=== PATIENT | male | born 1955 | race Caucasian/White ===

== ENCOUNTER 2023-04-29 22:54 | Inpatient (IN) | payer MEDICARE, MEDICAID, SELFPAY ==
[2023-04-29] VITALS (14 sets, daily range): BP systolic 82–131; BP diastolic 44–64; BMI 33.0; BMI 33.2
--- NOTE | 2023-04-29 17:15 | ED.GENMED ---
History of Present Illness
General
Chief Complaint: Abdominal Symptoms
Source: patient
Exam Limitations: none
Time Seen by Provider: 04/29/23 16:51
Nursing documentation reviewed up to this point in time: agreed with
Travel History
Have you had any contact with someone who has COVID-19?: No
Do you have any symptoms of coronavirus? Fever > 100 degrees, chills, cough, shortness of breath, sore throat, loss of taste or smell, muscle aches, or headache?: No
History of Present Illness
History of Present Illness:
Patient is a 67-year-old male with past medical history of anxiety bipolar disorder aspiration pneumonia dementia encephalopathy hypertension reflux a flutter brought by staff from halfway. Staff reports patient started vomiting diarrhea around
3:15pm He has vomited 4 times since.
Staff reports the patient was recently started on Eliquis for a flutter as well as metoprolol on April 26.
Review of Systems
Review of Systems
Allergies reviewed?: Yes
Other source history: other (staff from [facility] )
All Other Systems: ROS reviewed and negative except as documented in HPI and ROS
Constitutional: Reports no symptoms; Denies fever, fatigue or chills
Respiratory: Reports no symptoms
Cardiac: Reports no symptoms
ABD/GI: Reports nausea, vomiting and diarrhea
: Reports no symptoms
Musculoskeletal: Reports no symptoms
Skin: Reports no symptoms
Psychiatric: Reports no symptoms
Phy Exam
General Physical Exam
General Presentation: no apparent distress
General age: appears older than age
General Skin: warm and dry
General Habitus: elderly
General Mental: alert
General Hydration: dry mucous membranes
Cardiovascular Exam
Cardiovascular Exam: regular rate/rhythm, no murmur and normal peripheral pulses
Course
Orders/Labs/Results
Orders:
Orders
04/29/23 17:15
0.9% Sodium Chloride 1000 ml [Nss] 1,000 ml IV BOLUS
Ondansetron Injectable [Zofran] 4 mg IV NOW STA
04/29/23 17:16
Complete Blood Count/With Diff Urgent
04/29/23 17:20
Electrocardiogram (*1) Stat
Reason for Study: Other
Other Reason for Exam: chest pain
Cardiac Monitoring- Treatment ONCE
EKG- Treatment ONCE
04/29/23 18:06
CT Abd/Pel (IV only)-DH only Urgent
Comment:
Reason For Exam: v/d pain ; elevated wbc of 20
04/29/23 18:55
COVID-19 Antigen Urgent
Comprehensive Metabolic Panel Urgent
Lipase Urgent
Urinalysis Reflex To Culture Urgent
Urine Microscopic Reflex Cult Urgent
Influenza A+B Rapid Molecular Urgent
LINN Source: [facility]
Specimen Description:
Urine Culture Urgent
LINN Source: U
Specimen Description:
04/29/23 19:47
Lactic Acid Urgent
Blood Culture Q30M
LINN Source: Blood/Venous
Specimen Description:
04/29/23 20:13
Lorazepam [Ativan] 0.5 mg IV NOW STA
04/29/23 20:14
CefTRIAXone [Rocephin] 1,000 mg IV NOW STA
04/29/23 20:24
Blood Culture Q30M
LINN Source: Blood/Venous
Specimen Description:
Abnormal Lab Results
04/29/23 04/29/23
17:16 18:55
WBC 20.6 H 10^3/uL
(4.8-10.8)
MCH 31.8 H pg
(27.0-31.0)
MPV 10.5 H fL
(7.4-10.4)
Abs Immat Gran (auto) 0.1 H 10^3/uL
(0-0.05)
Absolute Neuts (auto) 18.7 H 10^3/uL
(1.4-6.5)
Absolute Lymphs (auto) 0.6 L 10^3/uL
(1.2-3.4)
Absolute Monos (auto) 1.0 H 10^3/uL
(0.1-0.6)
Neutrophils % 91.1 H %
(42.2-75.2)
Lymphocytes % 3.0 L %
(20.5-51.1)
Sodium 131 L mmol/L
(135-145)
Potassium 3.3 L mmol/L
(3.5-5.1)
Chloride 88 L mmol/L
(98-107)
Carbon Dioxide 36 H mmol/L
(22-30)
BUN 21 H mg/dl
(9-20)
Glucose 103 H mg/dl
(70-99)
Alkaline Phosphatase 144 H U/L
(38-126)
Total Protein 9.3 H g/dl
(6.3-8.2)
Ur Occult Blood Reflex 1+ A
(Negative)
Urine Nitrite (Reflex) Positive A
(Negative)
Leukocyte Esterase Rfl 2+ A
(Negative)
Urine RBC 3-6 A /HPF
(0-2)
Urine WBC (Reflex) 90-100 A /HPF
(0-5)
Urine Bacteria (Reflex) Many A
(Negative)
04/29/23 17:16
04/29/23 18:55
Vital Signs
Initial and Last Documented VS:
Initial Vital Signs
Temp Pulse Resp BP Pulse Ox
98.4 F 67 18 108/61 95
04/29/23 16:17 04/29/23 16:17 04/29/23 16:17 04/29/23 16:17 04/29/23 16:17
Last Documented Vital Signs
Temp Pulse Resp BP Pulse Ox
98.4 F 78 13 131/60 94
04/29/23 16:17 04/29/23 19:45 04/29/23 19:45 04/29/23 19:30 04/29/23 19:45
Shearing Machine Tender consulted with Physician
Shearing Machine Tender consulted with physician?: Yes
Name of Physician Consulted: Fabian
MDM/Problems Addressed
Differential Diagnosis Includes:
Not limited to viral syndrome, COVID, influenza, dehydration, electrolyte abnormality, UTI
MDM/Problems Addressed:
Patient is a 67-year-old male with past medical history of developmental delay from halfway sent for nausea vomiting diarrhea. Patient was found to have a UTI. White count elevated at 20.6 however afebrile. Sodium mildly low at 131 potassium
3.3 CAT scan showed severely distention of bladder. Bladder scan done after patient came back and CAT scan shows 600 mL of urine. Patient has required a Chen in the past as per sister who was at bedside and staff from halfway. Will place
Chen. IV Rocephin ordered. bc x2 ordered. nml lactic
*Radiology
Radiology exam reviewed: radiology read reviewed
*Pulse Oximetry
Patient hypoxic: no
*EKG
Interpreted by ED Provider?: Yes
Heart Rate: 73
Rate: normal
Rhythm: sinus
Ischemia: no ischemia
*Critical Care Note
Total Time (30-74mins, 75-104mins- exclusive of procedures): Not Applicable
ED Attending Note
-
Portions of this chart may have been created with voice recognition software.� Occasional wrong word or��sound alike� substitutions may have occurred due to the inherent limitations of voice recognition software.
Discharge Plan
Departure
Patient Disposition: Admit
Date of Disposition: 04/29/23
Time of Disposition: 21:54
Admit to: Med/Surg
Admit to doctor: hospitalist
Presentation/result/management discussed w/ accepting MD/DO: Hospitalist
Patient with high blood pressure during this ER visit?: Yes
Condition: Fair
Covid-19: Not Applicable
Discharge Problem:
Acute UTI, Acute hyponatremia, Acute hypokalemia, Nausea, vomiting and diarrhea
Prescriptions:
No Action
loperamide 2 MG capsule
2 mg PO Q4H PRN (Reason: loose stool)
famotidine [Acid Controller] 20 MG tablet
20 mg PO BID
magnesium hydroxide 30 ML suspension
30 ml PO Q12H PRN (Reason: constipation)
tamsulosin 0.4 MG capsule
0.4 mg PO HS
mirtazapine 30 MG tablet
30 mg PO HS
lisinopril 5 MG tablet
5 mg PO DAILY
buspirone 15 MG tablet
15 mg PO BID
acetaminophen [Tylenol] 325 MG capsule
650 mg PO Q4H PRN (Reason: mild pain/BARCLAY/temp>100.4)
sodium chloride 5 % drops
1 drp RIGHT EYE TID
docusate sodium 50 mg/5 mL liquid
100 mg PO BID
sennosides [senna] 8.6 mg Tablet
17.2 mg PO HS
Triple Antibiotic 3.5mg-400 unit- 5,000 unit/gram Ointment
1 applic TOPICAL QID PRN (Reason: cuts/scrapes/abrasions)
ketoconazole 2 % shampoo
1 applic TOPICAL MOTH
dextromethorphan-guaifenesin [Chest Congestion Relief DM] 10-100 mg/5 mL Syrup
10 ml PO Q6H PRN (Reason: cough/congestion)
zinc oxide 20 % Ointment
1 applic TOPICAL PRN PRN (Reason: prevent skin breakdown)
Rx Instructions:
apply to chela area
sodium chloride [Stacey 128] 5 % ointment
1 applic RIGHT EYE BID
levothyroxine 50 mcg tablet
50 mcg PO DAILY
erythromycin 5 mg/gram (0.5 %) ointment
0.5 inch BOTH EYES HS
Debrox 6.5 % Drops
4 drp EACH EAR MONTHLY
Rx Instructions:
Instill 4 drps in both ears at bedtime on the 1st day of each month
metoprolol succinate 25 mg tablet extended release 24 hr
25 mg PO DAILY
ibuprofen 600 mg Tablet
600 mg PO Q6H PRN (Reason: dental pain)
polyethylene glycol 3350 17 gram/dose powder
17 g PO DAILY
olopatadine 0.2 % Drops
1 drp BOTH EYES DAILY PRN (Reason: allergic symptoms/itching)
Desitin Daily Defense 13 % Cream
1 applic TOPICAL PRN PRN (Reason: rash)
Rx Instructions:
apply to groin/buttocks
Nuedexta 20-10 mg capsule
1 cap PO DAILY
apixaban 5 mg Tablet
5 mg PO BID
Referrals:
Bryan Cardona, DO [Family Provider] -
Interventions
Interventions:
*Risk Screen - Suicide Last Done: 04/29/23 17:41
*General Assessment Last Done: 04/29/23 16:17
*Neglect/Abuse Screening Last Done: 04/29/23 17:41
ED- Fall Risk Assessment Last Done: 04/29/23 17:41
*ED COVID-19 Vaccine History Last Done: 04/29/23 16:17
SB-Dfmvtg-Sfuotmtiug Assessment Last Done: 04/29/23 17:41
[2023-04-29] MEDS: NSS 1000 IV (17:18)
[2023-04-29] MEDS: ZOFRAN 4 MG IV (17:18)
[2023-04-29 17:40] LABS: % Basophils 0.3 % (0-2); % Eosinophils 0.1 % (0-6); % Immature Granulocytes 0.5 % (0-0.5); % Neutrophils 91.1 % (42.2-75.2); Absolute Basophils 0.1 10^3/uL (0-0.2); Absolute Immature Granulocytes 0.1 10^3/uL (0-0.05); Absolute Lymphocytes 0.6 10^3/uL (1.2-3.4); Absolute Neutrophils 18.7 10^3/uL (1.4-6.5); Hematocrit 43.5 % (39.0-52.0); Mean Corp Hgb Conc. 34.5 g/dL (33.0-37.0); Mean Corpuscular Hgb 31.8 pg (27.0-31.0); Mean Corpuscular Volume 92.2 fL (80.0-94.0); Mean Platelet Volume 10.5 fL (7.4-10.4); Nucleated Red Blood Cells % 0 % (-); Platelet Count 237 10^3/uL (130-400); Red Blood Cell Count 4.72 10^6/uL (4.70-6.10); Red Cell Dist. Width 13.5 % (11.5-14.5); White Blood Cell Count 20.6 10^3/uL (4.8-10.8)
[2023-04-29 19:10] LABS: Urine Albumin Trace (Neg - Trace); Urine Bilirubin Negative (Negative); Urine Character Slightly Cloudy (Clear); Urine Color Yellow; Urine Glucose Negative (Negative); Urine Ketone Negative (Negative); Urine Leukocyte 2+ (Negative); Urine Nitrite Positive (Negative); Urine Occult Blood 1+ (Negative); Urine Specific Gravity 1.005 (<1.030); Urine Urobilinogen Negative (Neg - 1+)
[2023-04-29 19:22] LABS: Urine Bacteria Many (Negative); Urine White Cell 90-100 /HPF (0-5)
[2023-04-29 19:23] LABS: COVID-19 Antigen Negative (Negative)
[2023-04-29 19:41] LABS: ALT (SGPT) 21 U/L (0-50); AST (SGOT) 56 U/L (17-59); Albumin 4.1 g/dl (3.5-5.0); Alkaline Phosphatase 144 U/L (38-126); Blood Urea Nitrogen 21 mg/dl (9-20); Calcium 9.2 mg/dl (8.4-10.2); Carbon Dioxide 36 mmol/L (22-30); Chloride 88 mmol/L (98-107); Estimated Creatinine Clearance 75 ml/min; Glucose 103 mg/dl (70-99); Lipase 295 U/L (23-300); Potassium 3.3 mmol/L (3.5-5.1); Sodium 131 mmol/L (135-145); Total Protein 9.3 g/dl (6.3-8.2); eGFR > 60.00
[2023-04-29 20:10] LABS: Lactic Acid 1.2 mmol/L (0.7-2.0)
[2023-04-29] MEDS: ATIVAN 0.5 MG IV (20:23)
[2023-04-29] MEDS: ROCEPHIN 1000 MG IV (20:23)
--- NOTE | 2023-04-29 21:54 | HPS.HSE ---
Addendum entered and electronically signed by Leanne James MD 04/29/23 22:51:
I saw and examined the patient.
The BOOTS AND SHOES SUPERVISOR or PA's note was reviewed and I agree with the note.
Comment:
Patient is [age] years old with past medical history of BPH, dementia, aspiration pneumonia who came to the ER with nausea, vomiting, diarrhea complaint with his sister at bedside and caregiver from [facility], patient found to have elevated white
count and CT scan done shows distended urinary bladder.
Urinalysis shows evidence of UTI.
Physical exam:
GENERAL : Patient is sleepy.
HEENT: Nonicteric sclerae, PERRLA, EOMI. Oropharynx clear. Moist mucous membranes. Conjunctivae appear well perfused.
CHEST: Chest wall is nontender.
HEART: Regular rate and rhythm without murmurs.
LUNGS: Clear to auscultation bilaterally.
ABDOMEN: Soft, positive bowel sounds, nontender, no organomegaly.
RECTAL: Deferred.
SKIN: No rash, no excessive bruising, petechiae, or purpura.
NEUROLOGIC: sleepy.
Assessment/plan.
UTI.
Started Rocephin.
Pending urine culture
Nausea/vomiting/diarrhea.
Possible gastroenteritis
IV fluid hydration.
Replace potassium
Paroxysmal A-fib.
Continue metoprolol/Eliquis.
Hypertension.
Currently hypotensive.
IV fluid.
Lisinopril/metoprolol with parameter
Original Note:
Family Physician
-
Family Physician: Bryan Cardona
Chief Complaint
-
vomitting and diarrhea
History of Present Illness
67-year-old male with past medical history of anxiety ,bipolar, aspiration pneumonia, dementia, encephalopathy, hypertension, reflux, a flutter brought by staff from [facility] with nausea, vomiting diarrhea this afternoon. �he was vomiting water
and food. denied fever, chills, chest pain ,sob. denied abdominal pain, denied n,v,d. denied dysuria or hematuria.
positive UA, urinary retention,elevated wbc. initiated on iv ceftriaxone and Chen placed in for urinary retention.
recently diagnosed wtih a flutter/a fib on metoprolol and eliquis
Medical History
Past Medical History
Past Medical History: Reports Other
Additional Past Medical History:
atrial flutter
bipolar
anxiety
htn
Past Surgical History: Reports Other
Additional Past Surgical History:
TURP
Social History
Tobacco: Non-smoker
Alcohol: None
Drug: None
Personal: Single
Living: Other (half-way)
Family History
Family History: Not pertinent
Allergies / Home Medications
Allergies reflects when Allergies were last updated in [facility].
Home Medications with original date entered in [facility]
Allergy/Medication List:
Allergies
Allergy/AdvReac Type Severity Reaction Status Date / Time
benztropine Allergy Unknown Verified 04/29/23 16:20
risperidone [From Risperdal] Allergy Unknown Verified 04/29/23 16:21
Home Medications
acetaminophen 325 mg capsule (Tylenol) 650 mg PO Q4H PRN mild pain/BARCLAY/temp>100.4 07/17/21
buspirone 15 mg tablet 15 mg PO BID 07/17/21
famotidine 20 mg tablet (Acid Controller) 20 mg PO BID 07/17/21
lisinopril 5 mg tablet 5 mg PO DAILY 07/17/21
loperamide 2 mg capsule 2 mg PO Q4H PRN loose stool 07/17/21
magnesium hydroxide 400 mg/5 mL oral suspension 30 ml PO Q12H PRN constipation 07/17/21
mirtazapine 30 mg tablet 30 mg PO HS 07/17/21
tamsulosin 0.4 mg capsule 0.4 mg PO HS 07/17/21
apixaban 5 mg tablet 5 mg PO BID 04/29/23
carbamide peroxide 6.5 % ear drops (Debrox) 4 drp EACH EAR MONTHLY 04/29/23
dextromethorphan 20 mg-quinidine 10 mg capsule (Nuedexta) 1 cap PO DAILY 04/29/23
dextromethorphan-guaifenesin 10 mg-100 mg/5 mL oral syrup (Chest Congestion Relief DM) 10 ml PO Q6H PRN cough/congestion 04/29/23
docusate sodium 50 mg/5 mL oral liquid 100 mg PO BID 04/29/23
erythromycin 5 mg/gram (0.5 %) eye ointment 0.5 inch BOTH EYES HS 04/29/23
ibuprofen 600 mg tablet 600 mg PO Q6H PRN dental pain 04/29/23
ketoconazole 2 % shampoo 1 applic topical MOTH 04/29/23
levothyroxine 50 mcg tablet 50 mcg PO DAILY 04/29/23
metoprolol succinate 25 mg tablet,extended release 24 hr 25 mg PO DAILY 04/29/23
neomycin-bacitracn Zn-polymyx 3.5 mg-400 unit-5,000 unit/gram top oint (Triple Antibiotic) 1 applic topical QID PRN cuts/scrapes/abrasions 04/29/23
olopatadine 0.2 % eye drops 1 drp BOTH EYES DAILY PRN allergic symptoms/itching 04/29/23
polyethylene glycol 3350 17 gram/dose oral powder 17 g PO DAILY 04/29/23
sennosides 8.6 mg tablet (senna) 17.2 mg PO HS 04/29/23
sodium chloride 5 % eye drops 1 drp RIGHT EYE TID 04/29/23
sodium chloride 5 % eye ointment (Stacey 128) 1 applic RIGHT EYE BID 04/29/23
zinc oxide 13 % topical cream (Desitin Daily Defense) 1 applic topical PRN PRN rash 04/29/23
zinc oxide 20 % topical ointment 1 applic topical PRN PRN prevent skin breakdown 04/29/23
Review of Systems
-
Constitutional: Reports No Symptoms
EENT: Reports No Symptoms
Respiratory: Reports No Symptoms
Cardiac: Reports No Symptoms
Abdomen/GI: Reports Nausea, Vomiting and Diarrhea
: Reports No Symptoms
Musculoskeletal: Reports No Symptoms
Skin: Reports No Symptoms
Neurological: Reports No Symptoms
Endocrine: Reports No Symptoms
Hematologic/Lymphatic: Reports No Symptoms
Psych: Reports No Symptoms
Physical Exam
Vital Signs
Vital Signs
Temp Pulse Resp BP Pulse Ox
98.4 F 78 13 131/60 94
04/29/23 16:17 04/29/23 19:45 04/29/23 19:45 04/29/23 19:30 04/29/23 19:45
Physical Exam
General: Well Developed, Well Nourished and No Apparent Distress
HEENT: NormoCephalic, Moist mucous membranes and Atraumatic
Respiratory: Clear
Cardiac: S1/S2 and Regular Rhythm; No Murmur or Rub
GI: Soft, Non Tender, Non Distended and Normal Bowel Sounds; No Organomegaly
Rectal: Deferred by Provider
Musculoskeletal: No Clubbing, No Cyanosis and No Edema
Skin: No Rash
Neuro: AO x 3 and Nonfocal/grossly intact
Psych: Calm
Laboratory Results
-
04/29/23 17:16
04/29/23 18:55
Laboratory Results
Lactic Acid 1.2 mmol/L (0.7-2.0) 04/29/23 19:47
Total Bilirubin 1.0 mg/dl (0.2-1.3) 04/29/23 18:55
AST 56 U/L (17-59) 04/29/23 18:55
ALT 21 U/L (0-50) 04/29/23 18:55
Alkaline Phosphatase 144 U/L (38-126) H 04/29/23 18:55
Lipase 295 U/L (23-300) 04/29/23 18:55
Data Reviewed
-
CT Scan: Report Reviewed by me
Lab Data: Labs Reviewed by me
Impression/Plan
-
#n/v/d likely gastroenteritis
-clear liquid diet, advance as directed
-obtain stool for culture, c diff, norovirus
#urinary tract infection/urinary retention
-Chen cath in place for urinary retention
-iv ceftriaxone
-culture pending
-wbc 20.6
-Ct abdomen pelvis with Severe distention of the bladder.Too small to characterize hypodense hepatic lesion likely a small cyst or hemangioma.Large amount of patient motion artifact due to patient movement.
-urology consulted
#hypovolemic hyponatremia/hypokalemia likely from n.v.d
-na 131, k 3.3
-oral kcl
-normal saline continued x1 bat
-monitor BMP in am
#paroxysmal atrial flutter/fib
-metoprolol continued
-eliquis continued
-EKG with NSR
#Bipolar/anxiety
-buspirone
#GERD
-PPI continued
#hypothyroidism
-levothyroxine continued
#essential htn
-BP stable, hypotensive in ER
-BP improved
-lisinopril continued with hold parameters
#hxt of bladder neck contraction s/p TURP
-on Flomax
#DVT prophylaxis
-eliquis
#CODE status
-CPR, but no intubation.
[2023-04-29] MEDS: KCL ELIXIR 40 MEQ PO (22:28)
--- NOTE | 2023-04-29 23:42 | PTCARENOTE ---
pt arrived onto [facility]w [facility] stretcher on r.a,on tele, and michelle Chen. Pt was pulled over from stretcher to bed, customer care assistant and sister is at bed side for right now, call moon is in reach. RN will continue to monitor.
[2023-04-30] MEDS: NSS 1000 IV (00:24)
[2023-04-30 03:00] VITALS: BP 106/47
[2023-04-30] MEDS: SYNTHROID 50 MCG PO (05:12)
[2023-04-30 08:03] VITALS: BP 123/62
--- NOTE | 2023-04-30 09:07 | W.PN.URO.CBU ---
Today's Communication / Plan
-
Await urine C&S
Keep Chen
Assessment / Plan
-
History of bladder outlet obstruction s/p TURP/bladder neck resection and urethral dilation most recently in June
Distended bladder on CT scan: s/p placement of Chen 04/29/23
No upper tract compromise radiographically of by serum studies
---
Await urine culture results
Would favor voiding trial prior to discharge home with the understanding the patient might not empty his bladder entirely
Diagnosis
-
Date of Service: April 30, 2023
-
Patient Diagnosis:
Urine retention
History of BPH
s/p TURP early 2019 at [facility]
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
---
Cystoscopy 08/21 confirmed an open bladder neck
Patient was most recently seen in the outpatient setting 04/07/23 and his caregiver denied the patient having any significant voiding dysfunction: confirmed this morning by patient's sister at bedside
---
Patient was admitted 04/29/23 for evaluation of nausea/vomiting/diarrhea
CT scan identified a distended urinary bladder with normal upper tracts
A Chen catheter was placed by the ER staff w/o event
Subjective
-
Essentially non-verbal
Objective
-
Vital Signs
Temp Pulse Resp BP Pulse Ox
98.2 F 65 16 123/62 97
04/30/23 08:03 04/30/23 08:03 04/30/23 08:03 04/30/23 08:03 04/30/23 08:03
Intake and Output
04/29/23 04/30/23 05/01/23
06:59 06:59 06:59
Intake Total 0 / 0
Output Total 2099
Balance -2099
Intake:
Oral fluids 0 / 0
Output:
Urine, Chen 2099
Other:
Number of unmeasured liquid
stools
Rectum 2
CT scan 04/29/23 personally reviewed and noted above
GFR > 60.0
Urinalysis c/w UTI
WBC 20.6 04/29/23
Review of Systems
-
Unable to obtain full review of systems at this time due to: Dementia
Physical Exam
-
General - no acute distress\\
Abdomen - soft, non-tender
Genitalia - normal with Chen draining pao urine
Skin - warm & dry with no rash
[2023-04-30 09:11] LABS: Hematocrit 36.9 % (39.0-52.0); Hemoglobin 12.5 g/dL (13.0-18.0); Mean Corp Hgb Conc. 33.9 g/dL (33.0-37.0); Mean Corpuscular Hgb 31.5 pg (27.0-31.0); Mean Corpuscular Volume 92.9 fL (80.0-94.0); Mean Platelet Volume 11.1 fL (7.4-10.4); Platelet Count 230 10^3/uL (130-400); Red Blood Cell Count 3.97 10^6/uL (4.70-6.10); Red Cell Dist. Width 13.9 % (11.5-14.5); White Blood Cell Count 11.6 10^3/uL (4.8-10.8)
[2023-04-30 09:38] LABS: Blood Urea Nitrogen 18 mg/dl (9-20); Calcium 8.6 mg/dl (8.4-10.2); Carbon Dioxide 25 mmol/L (22-30); Chloride 110 mmol/L (98-107); Estimated Creatinine Clearance 75 ml/min; Glucose 82 mg/dl (70-99); Potassium 3.9 mmol/L (3.5-5.1); Sodium 141 mmol/L (135-145); eGFR > 60.00
[2023-04-30] MEDS: ZESTRIL 5 MG PO (10:02)
[2023-04-30] MEDS: PEPCID 20 MG PO ×2 (10:02→19:43)
[2023-04-30] MEDS: ELIQUIS 5 MG PO ×2 (10:02→19:43)
[2023-04-30] MEDS: TOPROL XL 25 MG PO (10:03)
[2023-04-30] MEDS: MURO 128/ADSORBONAC 5% EYE DROPS 1 DROP RIGHT EYE ×3 (10:05→21:34)
[2023-04-30] MEDS: MURO 5% OPHTHALMIC OINTMENT 1 APPLIC RIGHT EYE ×2 (10:05→19:46)
[2023-04-30 11:10] VITALS: BP 128/68
--- NOTE | 2023-04-30 12:23 | W.PN.HOSP.TC ---
Today's Communication/Plan
-
follow culture
cont rocephin
will need TOV prior to d/c back to [facility]
Assessment / Plan
Assessment / Plan
pt is a 67 year old male
n/v/d likely gastroenteritis---clear liquid diet, advance as directed--seems resolved--follow cultures, negative for C. diff and Norovirus
urinary tract infection with urinary retention--Chen cath in place for urinary retention--apprec urology--cont rocephin--Ct abdomen pelvis with Severe distention of the bladder.
hypovolemic hyponatremia/hypokalemia likely from n.v.d--cont IVF-replete--follow
paroxysmal atrial flutter/fib--metoprolol continued--eliquis continued--EKG with NSR
Bipolar/anxiety--buspirone
GERD--PPI continued
hypothyroidism--levothyroxine continued
essential HTN--BP stable--lisinopril continued with hold parameters
hx of bladder neck contraction s/p TURP--on Flomax
DVT prophylaxis--eliquis
CODE status--CPR, but no intubation.
Anticipated Discharge: > 48 hours
Subjective/Interval History
-
Date of Service: April 30, 2023
pt not very talkative--sister and POA at bedside
Objective Data
-
Labs:
Laboratory Results
04/30/23
08:20
WBC 11.6 H
Hgb 12.5 L
Hct 36.9 L
Plt Count 230
Sodium 141 D
Potassium 3.9
Chloride 110 H
Carbon Dioxide 25
BUN 18
Creatinine 0.9
Glucose 82
Calcium 8.6
Vital Signs:
max temp for 24 hours
04/29/23
23:00
Temp 97.9 F
Vital Signs
Temp Pulse Resp BP Pulse Ox
97.5 F 63 16 128/68 97
04/30/23 11:10 04/30/23 11:10 04/30/23 11:10 04/30/23 11:10 04/30/23 11:10
I&O
04/29/23 04/30/23 05/01/23
06:59 06:59 06:59
Intake Total 0 / 0
Output Total 2099
Balance -2099 / -2099
Review of Systems
-
Unable to obtain full review of systems at this time due to: Other (not very talkative)
Physical Exam
-
General: Well Developed, Well Nourished and No Apparent Distress
HEENT: Normocephalic and Atraumatic
Respiratory: Clear to Auscultation; Negative Wheezes or Rhonchi
Cardiac: Regular Rhythm and S1/S2; Negative Murmur
GI: Soft, Nontender, Nondistended and Normal Bowel Sounds
Genito-urinary: Chen
Musculoskeletal: No Clubbing, No Cyanosis and No Edema
Psych: Calm
[2023-04-30 14:52] VITALS: BP 153/76
--- NOTE | 2023-04-30 16:14 | CM ---
Patient seen at bedside with sister guardian Emilie. Patient lives at [facility]. DAYNA spoke with Michael [phone], the navigation officer nurse this weekend is Tamiko [phone]/fax [phone]. Patient PCP is Dr. Doss and the pharmacy is [facility]
[address] Patient would need PT/OT from [facility] at discharge. Per Michael patient can return with Chen. Patient guardian requesting call back with update, CM updated physician. CM will continue to follow for discharge planning needs.
Plan; home with [facility]; awaiting confirmation of ability to accept.
[2023-04-30 19:00] VITALS: BP 151/70
[2023-04-30] MEDS: STERILE WATER FOR INJECTION 10 ML IV (19:44)
[2023-04-30] MEDS: ROCEPHIN 1000 MG IV (19:45)
[2023-04-30] MEDS: FLOMAX 0.400000000000000022 MG PO (21:33)
[2023-04-30] MEDS: ERYTHROMYCIN 0.5% OPHTHALMIC OINTMENT 1 APPLIC BOTH EYES (21:34)
[2023-04-30] MEDS: REMERON 30 MG PO (21:39)
[2023-04-30 23:00] VITALS: BP 99/65
[2023-05-01 04:13] VITALS: BP 96/59
[2023-05-01] MEDS: SYNTHROID 50 MCG PO (05:54)
--- NOTE | 2023-05-01 07:29 | W.PN.URO.CBU ---
Today's Communication / Plan
-
continue joel and uti treatment
Assessment / Plan
-
History of bladder outlet obstruction s/p TURP/bladder neck resection and urethral dilation most recently in June
Distended bladder on CT scan: s/p placement of Joel 04/29/23
No upper tract compromise radiographically of by serum studies
---
ucx + for strep- given clinical presentation- would treat for 7 day course
continue jole for another 48hrs- then remove wednesday for TOV given degree of retention
will follow
Diagnosis
-
Date of Service: May 01, 2023
-
Patient Diagnosis:
Urine retention
History of BPH
s/p TURP early 2019 at [facility]
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
---
Cystoscopy 08/21 confirmed an open bladder neck
Patient was most recently seen in the outpatient setting 04/07/23 and his caregiver denied the patient having any significant voiding dysfunction: confirmed this morning by patient's sister at bedside
---
Patient was admitted 04/29/23 for evaluation of nausea/vomiting/diarrhea
CT scan identified a distended urinary bladder with normal upper tracts
A Joel catheter was placed by the ER staff w/o event
Subjective
-
pt awake
joel in place
urine clear
Objective
-
Vital Signs
Temp Pulse Resp BP Pulse Ox
97.8 F 53 16 96/59 96
05/01/23 04:13 05/01/23 04:13 05/01/23 04:13 05/01/23 04:13 05/01/23 04:13
Intake and Output
04/30/23 05/01/23 05/02/23
06:59 06:59 06:59
Intake Total 0 / 0 480 /
Output Total 2099
Balance -2099 -2194
Intake:
Oral fluids 0 / 0 480 / 480
Output:
Urine, Joel 2099
Other:
Number of unmeasured liquid
stools
Rectum 2
Review of Systems
-
Unable to obtain full review of systems at this time due to: Other (pt can not communicate)
Physical Exam
-
General - no acute distress
Abdomen - soft, non-tender
Genitalia - joel in place
[2023-05-01 08:19] VITALS: BP 150/68
[2023-05-01 08:43] LABS: Hematocrit 39.7 % (39.0-52.0); Hemoglobin 13.9 g/dL (13.0-18.0); Mean Corpuscular Volume 91.3 fL (80.0-94.0); Mean Platelet Volume 11.5 fL (7.4-10.4); Platelet Count 192 10^3/uL (130-400); Red Blood Cell Count 4.35 10^6/uL (4.70-6.10); Red Cell Dist. Width 13.6 % (11.5-14.5); White Blood Cell Count 7.3 10^3/uL (4.8-10.8)
[2023-05-01 09:26] LABS: Blood Urea Nitrogen 7 mg/dl (9-20); Calcium 9.2 mg/dl (8.4-10.2); Carbon Dioxide 23 mmol/L (22-30); Chloride 110 mmol/L (98-107); Estimated Creatinine Clearance 96 ml/min; Glucose 85 mg/dl (70-99); Potassium 3.9 mmol/L (3.5-5.1); Sodium 139 mmol/L (135-145); eGFR > 60.00
[2023-05-01] MEDS: ZESTRIL 5 MG PO (10:44)
[2023-05-01] MEDS: TOPROL XL 25 MG PO (10:44)
[2023-05-01] MEDS: ELIQUIS 5 MG PO ×2 (10:44→19:54)
[2023-05-01] MEDS: PEPCID 20 MG PO ×2 (10:44→19:55)
[2023-05-01] MEDS: MURO 5% OPHTHALMIC OINTMENT 1 APPLIC RIGHT EYE ×2 (10:52→19:56)
[2023-05-01 11:00] VITALS: BP 118/76
[2023-05-01] MEDS: NON-FORMULARY ITEM 1 CAP PO (12:18)
--- NOTE | 2023-05-01 12:31 | W.PN.HOSP.TC ---
Today's Communication/Plan
-
cont rocephin
advance diet
Assessment / Plan
Assessment / Plan
pt is a 67 year old male
n/v/d likely gastroenteritis---seems resolved--negative for C. diff and Norovirus
urinary tract infection with urinary retention--Joel cath in place for urinary retention--apprec urology, treat for 7 days course and cont joel another 48H, TOV Wednesday--cont rocephin, urine culture with strep species--Ct abdomen pelvis with Severe
distention of the bladder--WBC WNL
hypovolemic hyponatremia/hypokalemia likely from n.v.d--stop IVF-replete--follow
paroxysmal atrial flutter/fib--metoprolol continued--eliquis continued--EKG with NSR
Bipolar/anxiety--buspirone
GERD--PPI continued
hypothyroidism--levothyroxine continued
essential HTN--BP stable--lisinopril continued with hold parameters
hx of bladder neck contraction s/p TURP--on Flomax
DVT prophylaxis--eliquis
CODE status--CPR, but no intubation.
Anticipated Discharge: > 48 hours
Subjective/Interval History
-
Date of Service: May 01, 2023
pt without c/o
Objective Data
-
Labs:
Laboratory Results
05/01/23
08:05
WBC 7.3
Hgb 13.9
Hct 39.7
Plt Count 192
Sodium 139
Potassium 3.9
Chloride 110 H
Carbon Dioxide 23
BUN 7 L
Creatinine 0.7
Glucose 85
Calcium 9.2
Vital Signs:
max temp for 24 hours
04/30/23
23:00
Temp 98.7 F
Vital Signs
Temp Pulse Resp BP Pulse Ox
97.8 F 52 18 118/76 98
05/01/23 11:00 05/01/23 11:00 05/01/23 11:00 05/01/23 11:00 05/01/23 11:00
I&O
04/30/23 05/01/23 05/02/23
06:59 06:59 06:59
Intake Total 0 / 0 480 / 480
Output Total 20995 / 2674
Balance -2099 / -2099 -2194 / -2194
Review of Systems
-
All other systems: Reviewed and negative
Physical Exam
-
General: Well Developed, Well Nourished and No Apparent Distress
HEENT: Normocephalic and Atraumatic
Respiratory: Clear to Auscultation; Negative Wheezes or Rhonchi
Cardiac: Regular Rhythm and S1/S2; Negative Murmur
GI: Soft, Nontender, Nondistended and Normal Bowel Sounds
Genito-urinary: Joel
Musculoskeletal: No Clubbing, No Cyanosis and No Edema
Skin: Warm
Neuro: Awake
[2023-05-01 15:00] VITALS: BP 158/63
[2023-05-01] MEDS: MURO 128/ADSORBONAC 5% EYE DROPS RIGHT EYE ×2 (18:15)
[2023-05-01] MEDS: STERILE WATER FOR INJECTION 10 ML IV (19:54)
[2023-05-01] MEDS: ROCEPHIN 1000 MG IV (19:54)
[2023-05-01 19:55] VITALS: BP 111/58
[2023-05-01] MEDS: FLOMAX 0.400000000000000022 MG PO (21:46)
[2023-05-01] MEDS: MURO 128/ADSORBONAC 5% EYE DROPS 1 DROP RIGHT EYE (21:46)
[2023-05-01] MEDS: REMERON 30 MG PO (21:46)
[2023-05-01] MEDS: ERYTHROMYCIN 0.5% OPHTHALMIC OINTMENT 1 APPLIC BOTH EYES (21:47)
[2023-05-01 23:35] VITALS: BP 140/62
[2023-05-02] MEDS: SYNTHROID 50 MCG PO (05:56)
[2023-05-02 07:00] VITALS: BP 157/73
--- NOTE | 2023-05-02 07:26 | W.PN.UPDATE ---
Update Note
Progress Note Update
pt stable
no change
urine clear
on antibx and flomax
plan for TOV tomorrow
will hold eliquis today in event other procedure is required
[2023-05-02 09:18] LABS: Hematocrit 42.6 % (39.0-52.0); Hemoglobin 14.7 g/dL (13.0-18.0); Mean Corp Hgb Conc. 34.5 g/dL (33.0-37.0); Mean Corpuscular Hgb 31.3 pg (27.0-31.0); Mean Corpuscular Volume 90.6 fL (80.0-94.0); Mean Platelet Volume 11.1 fL (7.4-10.4); Platelet Count 236 10^3/uL (130-400); Red Cell Dist. Width 13.4 % (11.5-14.5); White Blood Cell Count 7.3 10^3/uL (4.8-10.8)
[2023-05-02] MEDS: PEPCID 20 MG PO ×2 (09:25→19:55)
[2023-05-02] MEDS: TOPROL XL 25 MG PO (09:25)
[2023-05-02] MEDS: ZESTRIL 5 MG PO (09:26)
[2023-05-02] MEDS: MURO 5% OPHTHALMIC OINTMENT 1 APPLIC RIGHT EYE ×2 (09:26→19:55)
[2023-05-02] MEDS: MURO 128/ADSORBONAC 5% EYE DROPS 1 DROP RIGHT EYE ×3 (09:26→21:40)
[2023-05-02] MEDS: NON-FORMULARY ITEM 1 CAP PO (09:27)
[2023-05-02 09:49] LABS: Blood Urea Nitrogen 9 mg/dl (9-20); Calcium 9.4 mg/dl (8.4-10.2); Carbon Dioxide 21 mmol/L (22-30); Chloride 109 mmol/L (98-107); Estimated Creatinine Clearance 84 ml/min; Glucose 85 mg/dl (70-99); Magnesium 2.2 mg/dl (1.6-2.3); Potassium 4.2 mmol/L (3.5-5.1); Sodium 139 mmol/L (135-145); eGFR > 60.00
--- NOTE | 2023-05-02 11:07 | W.PN.HOSP.TC ---
Today's Communication/Plan
-
d/c joel and TOV in AM Wednesday
hopeful d/c after
change to PO keflex for remainder of 7 days course
Assessment / Plan
Assessment / Plan
pt is a 67 year old male
n/v/d likely gastroenteritis---seems resolved--negative for C. diff and Norovirus--now constipated--restart colace
strep species urinary tract infection with urinary retention--required Joel--apprec urology, treat for 7 days course and cont joel until Wednesday, TOV Wednesday--change rocephin to keflex, urine culture with strep species--Ct abdomen pelvis with Severe
distention of the bladder--WBC WNL
hypovolemic hyponatremia/hypokalemia likely from n.v.d--stop IVF--replete--follow
paroxysmal atrial flutter/fib--metoprolol continued--eliquis continued--EKG with NSR
Bipolar/anxiety--buspirone
GERD--PPI continued
hypothyroidism--levothyroxine continued
essential HTN--BP stable--lisinopril continued with hold parameters
hx of bladder neck contraction s/p TURP--on Flomax
DVT prophylaxis--eliquis
CODE status--CPR, but no intubation.
Anticipated Discharge: Within 24 hours
Subjective/Interval History
-
Date of Service: May 02, 2023
pt without c/o
Objective Data
-
Labs:
Laboratory Results
05/02/23
08:22
WBC 7.3
Hgb 14.7
Hct 42.6
Plt Count 236 D
Sodium 139
Potassium 4.2
Chloride 109 H
Carbon Dioxide 21 L
BUN 9
Creatinine 0.8
Glucose 85
Calcium 9.4
Vital Signs:
max temp for 24 hours
05/01/23
23:35
Temp 98 F
Vital Signs
Temp Pulse Resp BP Pulse Ox
97.7 F 56 18 157/73 99
05/02/23 07:00 05/02/23 07:00 05/02/23 07:00 05/02/23 07:00 05/02/23 07:00
I&O
05/01/23 05/02/23 05/03/23
06:59 06:59 06:59
Intake Total 480 / 480 2039
Output Total 2675 / 2675 3650 / 3650
Balance -2195 / -2195 -1610 / -1610
Review of Systems
-
All other systems: Reviewed and negative
Physical Exam
-
General: Well Developed, Well Nourished and No Apparent Distress
HEENT: Normocephalic and Atraumatic
Respiratory: Clear to Auscultation; Negative Wheezes or Rhonchi
Cardiac: Regular Rhythm and S1/S2; Negative Murmur
GI: Soft, Nontender and Nondistended; Negative Normal Bowel Sounds (hyperactive)
Musculoskeletal: No Clubbing, No Cyanosis and No Edema
Neuro: Awake
Psych: Calm
[2023-05-02] MEDS: PREPARATION H MAX STRENGTH PAIN RELIEF CREAM 1 APPLIC RECTAL (12:52)
[2023-05-02 15:00] VITALS: BP 129/58
[2023-05-02] MEDS: COLACE LIQUID 100 MG PO (19:53)
[2023-05-02] MEDS: KEFLEX 500 MG PO (19:53)
[2023-05-02] MEDS: STERILE WATER FOR INJECTION IV (19:55)
[2023-05-02] MEDS: FLOMAX 0.400000000000000022 MG PO (21:40)
[2023-05-02] MEDS: REMERON 30 MG PO (21:40)
[2023-05-02] MEDS: ERYTHROMYCIN 0.5% OPHTHALMIC OINTMENT 1 APPLIC BOTH EYES (21:40)
[2023-05-02 23:17] VITALS: BP 97/60
[2023-05-03 05:36] LABS: Hematocrit 39.7 % (39.0-52.0); Hemoglobin 13.6 g/dL (13.0-18.0); Mean Corp Hgb Conc. 34.3 g/dL (33.0-37.0); Mean Corpuscular Hgb 31.4 pg (27.0-31.0); Mean Corpuscular Volume 91.7 fL (80.0-94.0); Mean Platelet Volume 10.6 fL (7.4-10.4); Platelet Count 262 10^3/uL (130-400); Red Blood Cell Count 4.33 10^6/uL (4.70-6.10); Red Cell Dist. Width 13.4 % (11.5-14.5); White Blood Cell Count 8.3 10^3/uL (4.8-10.8)
[2023-05-03] MEDS: SYNTHROID 50 MCG PO (05:50)
[2023-05-03 05:58] LABS: Blood Urea Nitrogen 12 mg/dl (9-20); Calcium 9.7 mg/dl (8.4-10.2); Carbon Dioxide 27 mmol/L (22-30); Chloride 101 mmol/L (98-107); Estimated Creatinine Clearance 75 ml/min; Glucose 93 mg/dl (70-99); Potassium 3.9 mmol/L (3.5-5.1); Sodium 137 mmol/L (135-145); eGFR > 60.00
--- NOTE | 2023-05-03 06:47 | W.PN.URO.CBU ---
Today's Communication / Plan
-
pt on flomax
treat uti with keflex
voiding trial
Assessment / Plan
-
History of bladder outlet obstruction s/p TURP/bladder neck resection and urethral dilation most recently in June
Distended bladder on CT scan: s/p placement of Joel 04/29/23
No upper tract compromise radiographically of by serum studies
---
ucx + for strep- given clinical presentation- would treat for 7 day course- plan for keflex
joel has been removed already- will check bladder scan later today and finalize outpt plan
Diagnosis
-
Date of Service: May 03, 2023
-
Patient Diagnosis:
Urine retention
History of BPH
s/p TURP early 2019 at [facility]
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
---
Cystoscopy 08/21 confirmed an open bladder neck
Patient was most recently seen in the outpatient setting 04/07/23 and his caregiver denied the patient having any significant voiding dysfunction: confirmed this morning by patient's sister at bedside
---
Patient was admitted 04/29/23 for evaluation of nausea/vomiting/diarrhea
CT scan identified a distended urinary bladder with normal upper tracts
A Joel catheter was placed by the ER staff w/o event
Subjective
-
pt's joel has already been removed
Objective
-
Vital Signs
Temp Pulse Resp BP Pulse Ox
97.4 F 64 18 97/60 95
05/02/23 23:17 05/02/23 23:17 05/02/23 23:17 05/02/23 23:17 05/02/23 23:17
Intake and Output
05/01/23 05/02/2305/02/24
06:59 06:59 06:59
Intake Total 480 / 480 2039 / 2039 1680 / 1680
Output Total 2675 / 2675 3650 / 3650 2450 / 2450
Balance -2195 / -2195 -1610 / -1610 -770 / -770
Intake:
Oral fluids 480 / 480 2039 / 0 1680 / 1680
Output:
Urine, Joel 2675 / 2675 3650 / 3650 2450 / 2450
Laboratory Results
05/03/23 04:58
05/03/23 04:58
Physical Exam
-
General - no acute distress
Abdomen - soft, non-tender,
[2023-05-03 07:15] VITALS: BP 151/76
[2023-05-03] MEDS: ZESTRIL 5 MG PO (09:13)
[2023-05-03] MEDS: PEPCID 20 MG PO (09:13)
[2023-05-03] MEDS: KEFLEX 500 MG PO ×2 (09:13→12:43)
[2023-05-03] MEDS: TOPROL XL 25 MG PO (09:14)
[2023-05-03] MEDS: COLACE LIQUID 100 MG PO (09:14)
[2023-05-03] MEDS: MIRALAX 17 GRAMS PO (09:14)
[2023-05-03] MEDS: MURO 5% OPHTHALMIC OINTMENT 1 APPLIC RIGHT EYE (09:14)
[2023-05-03] MEDS: MURO 128/ADSORBONAC 5% EYE DROPS 1 DROP RIGHT EYE (09:15)
[2023-05-03] MEDS: NON-FORMULARY ITEM 1 CAP PO (09:15)
--- NOTE | 2023-05-03 09:28 | W.PN.HOSP.TC ---
Addendum entered and electronically signed by Jaskaran Santos DO 05/03/23 13:19:
Bladder scan after voiding was [address] Shelby of urology. Joel catheter to be reinserted. Can discharge with Joel catheter. Case management updated.
Original Note:
Today's Communication/Plan
-
Bladder scan
Resume Eliquis
Discharge
Assessment / Plan
Assessment / Plan
Gen-AAOx3, NAD
HEENT-NC, AT, anicteric, clear oral mm
Neck-supple
CV-reg, no M, +S1/S2
Lungs-clear B/L
Abd-soft, NT, ND
Ext-no edema
Musculoskeletal-no cyanosis, clubbing
Skin-warm and dry
Neuro-grossly non-focal
Psych-calm, cooperative
Acute gastroenteritis---seems resolved--negative for C. diff and Norovirus--now constipated--restart colace. Tolerating diet.
strep species urinary tract infection with acute urinary retention--required Joel--apprec urology, treat for 7 days course and cont joel until Wednesday, TOV Wednesday--change rocephin to keflex, urine culture with strep species--Ct abdomen pelvis with
Severe distention of the bladder--WBC WNL. Await bladder scan today. Joel removed.
hypovolemic hyponatremia/hypokalemia likely from n.v.d--stop IVF--replete--follow
paroxysmal atrial flutter/fib--metoprolol continued. Unclear why Eliquis was discontinued over the weekend. Will resume today.
Bipolar/anxiety--buspirone
GERD--PPI continued
hypothyroidism--levothyroxine continued
essential HTN--BP stable--lisinopril continued with hold parameters
hx of bladder neck contraction s/p TURP--on Flomax
DVT prophylaxis--eliquis
CODE status--CPR, but no intubation.
Dispo -likely [facility] to [facility] today if stable. Awaiting bladder scan. Updated sister at the bedside.
35 minutes spent in discharge process.
Anticipated Discharge: Today
Subjective/Interval History
-
Date of Service: May 03, 2023
Patient seen and examined. No complaints. Sister at the bedside.
Objective Data
-
Labs:
Laboratory Results
05/03/23
04:58
WBC 8.3
Hgb 13.6
Hct 39.7
Plt Count 262
Sodium 137
Potassium 3.9
Chloride 101
Carbon Dioxide 27
BUN 12
Creatinine 0.9
Glucose 93
Calcium 9.7
Vital Signs:
Vital Signs
Temp Pulse Resp BP Pulse Ox
97.1 F 63 20 151/76 97
05/03/23 07:15 05/03/23 07:15 05/03/23 07:15 05/03/23 07:15 05/03/23 07:15
I&O
05/02/23 05/03/23 05/04/23
06:59 06:59 06:59
Intake Total 2039 / 0 1680 / 1680
Output Total 3650 / 3650 2450 / 2450
Balance -1610 / -1610 -770 / -770
Review of Systems
-
History Source: Patient
All other systems: Reviewed and negative
[2023-05-03] MEDS: KEFLEX PO (09:43)
[2023-05-03] MEDS: ELIQUIS 5 MG PO (09:45)
--- NOTE | 2023-05-03 13:20 | W.DS.TRANS ---
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
-
Discharge Instructions:
Discharge Diagnosis/Procedures Urinary tract infection with urinary retention,
gastroenteritis, hyponatremia/hypokalemia,
paroxysmal atrial fibrillation/flutter, bipolar/
anxiety, gastroesophageal reflux disease,
hypothyroidism, essential hypertension, history
of bladder neck contraction status post TURP
Diet Other diet
Additional Diets Pur�ed diet
Activity As tolerated
Driving Restrictions No driving
Bathing Restrictions None
Instructions:
Stand-Alone Forms:
Changes to Home Medications: No
Discharge Medications:
DC Medications w/original date entered in [facility]
acetaminophen 325 mg capsule (Tylenol) 650 mg PO Q4H PRN mild pain/BARCLAY/temp>100.4 07/17/21
buspirone 15 mg tablet 15 mg PO BID Mental Health/Anxiety 07/17/21
famotidine 20 mg tablet (Acid Controller) 20 mg PO BID Gastrointestinal Issue 07/17/21
lisinopril 5 mg tablet 5 mg PO DAILY Blood Pressure 07/17/21
loperamide 2 mg capsule 2 mg PO Q4H PRN loose stool 07/17/21
magnesium hydroxide 400 mg/5 mL oral suspension 30 ml PO Q12H PRN constipation 07/17/21
mirtazapine 30 mg tablet 30 mg PO HS Mental Health/Anxiety 07/17/21
tamsulosin 0.4 mg capsule 0.4 mg PO HS Urinary Issue 07/17/21
apixaban 5 mg tablet 5 mg PO BID Blood Clot Prevention/Tx 04/29/23
carbamide peroxide 6.5 % ear drops (Debrox) 4 drp EACH EAR MONTHLY ear problem 04/29/23
dextromethorphan 20 mg-quinidine 10 mg capsule (Nuedexta) 1 cap PO DAILY Congestion 04/29/23
dextromethorphan-guaifenesin 10 mg-100 mg/5 mL oral syrup (Chest Congestion Relief DM) 10 ml PO Q6H PRN cough/congestion 04/29/23
docusate sodium 50 mg/5 mL oral liquid 100 mg PO BID Constipation 04/29/23
ibuprofen 600 mg tablet 600 mg PO Q6H PRN dental pain 04/29/23
ketoconazole 2 % shampoo 1 applic topical MOTH scalp problem 04/29/23
levothyroxine 50 mcg tablet 50 mcg PO DAILY Thyroid 04/29/23
metoprolol succinate 25 mg tablet,extended release 24 hr 25 mg PO DAILY Heart Failure 04/29/23
olopatadine 0.2 % eye drops 1 drp BOTH EYES DAILY PRN allergic symptoms/itching 04/29/23
polyethylene glycol 3350 17 gram/dose oral powder 17 g PO DAILY Constipation 04/29/23
sennosides 8.6 mg tablet (senna) 17.2 mg PO HS Constipation 04/29/23
sodium chloride 5 % eye drops 1 drp RIGHT EYE TID Eye Condition 04/29/23
sodium chloride 5 % eye ointment (Stacey 128) 1 applic RIGHT EYE BID Eye Condition 04/29/23
zinc oxide 13 % topical cream (Desitin Daily Defense) 1 applic topical PRN PRN rash 04/29/23
zinc oxide 20 % topical ointment 1 applic topical PRN PRN prevent skin breakdown 04/29/23
cephalexin 500 mg capsule 500 mg PO QID #16 caps 05/03/23
Home Medication Changes
Pending Results: No
--- NOTE | 2023-05-03 15:27 | CM ---
entered order for discharge.
Contacted nurse at [facility] Zaid [phone] ext [phone] she requested clinical for pt to return . Clinical faxed to [phone] as requested .
Spoke with Herminia sister in room she agrees with dc to [facility] today.
IMM explained and signed on chart.Signed by sister.
Pt has Chen .
[facility] called and accepted pt back.[facility] will provide transportation to their facility.
Wendy from [facility] aware of pts dc today.
PLAN Return to [facility] dc summary faxed to [phone] and [facility]
== END 2023-05-03 15:51 | disposition home or self-care (01) | DRG 690 ==
LOC: 4 WEST ACU 22:54
PROVIDERS: Nurse Practitioner; Registered Nurse; ADMITTING PHYSICIAN General Practice; ATTENDING PHYSICIAN Hospitalist; EMERGENCY PHYSICIAN Student in an Organized Health Care Education/Training Program; FAMILY PHYSICIAN Internal Medicine
DX: N39.0 Urinary tract infection, site not specified (principal); F03.93 Unspecified dementia, unspecified severity, with mood disturbance; E87.1 Hypo-osmolality and hyponatremia; I48.92 Unspecified atrial flutter; B95.5 Unspecified streptococcus as the cause of diseases classified elsewhere; N32.0 Bladder-neck obstruction; K52.9 Noninfective gastroenteritis and colitis, unspecified; N32.89 Other specified disorders of bladder; I48.0 Paroxysmal atrial fibrillation; E87.6 Hypokalemia; K21.9 Gastro-esophageal reflux disease without esophagitis; I10 Essential (primary) hypertension; E03.9 Hypothyroidism, unspecified
CPT/HCPCS: 51701; 74177; 80048; 80053; 81003; 81015; 83605; 83690; 83735; 85025; 85027; 87040; 87045; 87046; 87070; 87077; 87086; 87324; 87427; 87449; 87502; 87798; 87811; 93005; 96361; 96374; 96375; 97116; 97161; 97166; 99285; Q9967

== ENCOUNTER 2023-12-18 07:50 | Emergency (ER) | payer MEDICARE, MEDICAID, SELFPAY ==
[2023-12-18 08:00] VITALS: BP 158/66
--- NOTE | 2023-12-18 08:41 | ED.GENMED ---
History of Present Illness
General
Chief Complaint: Skin Problem
Source: patient
Exam Limitations: none
Time Seen by Provider: 12/18/23 08:08
Nursing documentation reviewed up to this point in time: agreed with
History of Present Illness
History of Present Illness:
67 y/o M from care home
h/o intellectual delay severe, nonverbal, htn, urinary retention
here after staff noticed rash on his left arm that he was scratching at this morning
it is doubful that pt had the rash there for much longer than a day beause the staff bathe him daily and check vitals
he has not had any systemic symptoms
no other rash areas other than L forearm
does not seem to be bothering him now
no recnt changes in detergents; doesn't go outside much
Past History
Past History
ED Past Medical History: HTN, Hypercholesterolemia, Psychiatric and Other (nonverbal, ID)
Social History
Tobacco: Non-smoker
Review of Systems
Review of Systems
Allergies reviewed?: Yes
All Other Systems: Not applicable
Phy Exam
Physical Exam
Physical Exam:
GENERAL: Alert , in no apparent distress
nonverbal, follows commands
ENT: o/p clr, mmm.
CARDIAC: Regular rate and rhythm .
LUNGS: Clear breath sounds bilaterally, no acute respiratory distress, no wheezes/rales/rhonchi
NEUROLOGICAL: awake moving all extremities;
SKIN: Warm and dry, few papules to L upper arm not blisters;
left forearm dorsal erythematous cluster of papules that are opened, some excorations;
no surrounding cellulitis
no web space rash
no AC rash
MUSCULOSKELETAL: No edema, well perfused
PSYCH: nonverbal
Course
Vital Signs
Initial and Last Documented VS:
Initial Vital Signs
Temp Pulse Resp BP Pulse Ox
97.7 F 56 16 158/66 99
12/18/23 08:00 12/18/23 08:00 12/18/23 08:00 12/18/23 08:00 12/18/23 08:00
Last Documented Vital Signs
Temp Pulse Resp BP Pulse Ox
97.7 F 56 16 158/66 99
12/18/23 08:00 12/18/23 08:00 12/18/23 08:00 12/18/23 08:00 12/18/23 08:00
MDM/Problems Addressed
Differential Diagnosis Includes:
eczema, contact dermatitis, shingles, less likely allergic reaction, infestation
MDM/Problems Addressed:
67 y/o M
care home
nonverbal
here with what seems like itchy irritating rash to L forearm just noticed today
not seen yesterday but this staff member was not wit him yesterday
he is well cared for and the staff member said it is unlikely it was there yesterday
he does have a few nonexcoraited papules in this upper arm which look like eczema
no web space rash
but then excoraited csuter of papules L forearm
probably dermatitis/eczema
doesn't appear infectious, fungal, allergic
steroid cream bid and bacitracin
*Critical Care Note
Total Time (30-74mins, 75-104mins- exclusive of procedures): Not Applicable
ED Attending Note
-
Portions of this chart may have been created with voice recognition software.� Occasional wrong word or��sound alike� substitutions may have occurred due to the inherent limitations of voice recognition software.
Discharge Plan
Departure
Patient Disposition: Home (Routine Discharge)
Date of Disposition: 12/18/23
Time of Disposition: 08:55
Patient with high blood pressure during this ER visit?: Yes
Condition: Fair
Covid-19: Not Applicable
Discharge Problem:
Rash, skin, Dermatitis
Instructions: Skin Rash (DC)
Prescriptions:
New
triamcinolone acetonide 0.1 % ointment
1 applic topical BID 7 Days Qty: 30 0RF
bacitracin 500 unit/gram ointment
1 applic topical DAILY 7 Days Qty: 28 0RF
No Action
loperamide 2 MG capsule
2 mg PO Q4H PRN (Reason: loose stool)
famotidine [Acid Controller] 20 MG tablet
20 mg PO BID
magnesium hydroxide 30 ML suspension
30 ml PO Q12H PRN (Reason: constipation)
tamsulosin 0.4 MG capsule
0.4 mg PO HS
mirtazapine 30 MG tablet
30 mg PO HS
lisinopril 5 MG tablet
5 mg PO DAILY
buspirone 15 MG tablet
15 mg PO BID
acetaminophen [Tylenol] 325 MG capsule
650 mg PO Q4H PRN (Reason: mild pain/BARCLAY/temp>100.4)
sodium chloride 5 % drops
1 drp RIGHT EYE TID
docusate sodium 50 mg/5 mL liquid
100 mg PO BID
sennosides [senna] 8.6 mg Tablet
17.2 mg PO HS
ketoconazole 2 % shampoo
1 applic TOPICAL MOTH
dextromethorphan-guaifenesin [Chest Congestion Relief DM] 10-100 mg/5 mL Syrup
10 ml PO Q6H PRN (Reason: cough/congestion)
zinc oxide 20 % Ointment
1 applic TOPICAL PRN PRN (Reason: prevent skin breakdown)
Rx Instructions:
apply to chela area
sodium chloride [Stacey 128] 5 % ointment
1 applic RIGHT EYE BID
levothyroxine 50 mcg tablet
50 mcg PO DAILY
Debrox 6.5 % Drops
4 drp EACH EAR MONTHLY
Rx Instructions:
Instill 4 drps in both ears at bedtime on the 1st day of each month
metoprolol succinate 25 mg tablet extended release 24 hr
25 mg PO DAILY
ibuprofen 600 mg Tablet
600 mg PO Q6H PRN (Reason: dental pain)
polyethylene glycol 3350 17 gram/dose powder
17 g PO DAILY
olopatadine 0.2 % Drops
1 drp BOTH EYES DAILY PRN (Reason: allergic symptoms/itching)
Desitin Daily Defense 13 % Cream
1 applic TOPICAL PRN PRN (Reason: rash)
Rx Instructions:
apply to groin/buttocks
Nuedexta 20-10 mg capsule
1 cap PO DAILY
apixaban 5 mg Tablet
5 mg PO BID
cephalexin 500 mg Capsule
500 mg PO QID Qty: 16 0RF
Activity Restrictions/Additional Instructions:
THIS RASH COULD BE ECZEMA OR A CONTACT DERMATITIS
AVOID ANY DETERGENTS OR NEW SOAPS WITH FRAGRANCE.
TRY THE STEROID CREAM TWICE A DAY ON THE RASH FOR 7 DAYS
ONCE A DAY YOU CAN ALSO APPLY TOPICAL ANTIBIOTICS TO HELP WITH POSSIBLE IFNECTION, SINCE IT APPEARS HE SCRATCHED AT IT
WATCH FOR WORSENING RASH, RETURN FOR FEVER, WORSE PAINFUL BLISTERS, TROUBLE BREATHING, OR ANY CONCERNS
Interventions
Interventions:
*Risk Screen - Suicide Last Done: 12/18/23 08:10
*General Assessment Last Done: 12/18/23 08:10
*Neglect/Abuse Screening Last Done: 12/18/23 08:10
ED- Fall Risk Assessment Last Done: 12/18/23 08:10
*ED COVID-19 Vaccine History Last Done: 12/18/23 08:10
*Nursing Disposition Last Done: 12/18/23 09:04
ED-Skin Assessment Last Done: 12/18/23 08:10
Discharge Date and Time
Discharge Date/Time: 12/18/23 09:05
Print Language: SLOVAK
== END 2023-12-18 09:05 | disposition home or self-care (01) ==
LOC: EMR 07:50
PROVIDERS: EMERGENCY PHYSICIAN Emergency Medicine; FAMILY PHYSICIAN Internal Medicine
DX: L30.9 Dermatitis, unspecified (principal); I10 Essential (primary) hypertension
CPT/HCPCS: 99282

== ENCOUNTER → 2024-01-10 08:37 | Outpatient (REF) | payer MEDICARE, MEDICAID, SELFPAY | LOC: HWRAD 08:37 | PROVIDERS: ATTENDING PHYSICIAN Physician Assistant; FAMILY PHYSICIAN Internal Medicine | DX: R19.5 Other fecal abnormalities (principal) | CPT/HCPCS: 74261 ==

== ENCOUNTER 2024-07-07 10:04 | Inpatient (IN) | payer MEDICARE, MEDICAID, SELFPAY ==
[2024-07-07] VITALS (24 sets, daily range): BP systolic 89–115; BP diastolic 42–74; PULSE 71; O2SAT 94
--- NOTE | 2024-07-07 06:42 | ED.GENMED ---
History of Present Illness
General
Chief Complaint: Fever
Time Seen by Provider: 07/07/24 06:33
History of Present Illness
History of Present Illness:
68-year-old male presents emergency department from a behavioral living group facility for evaluation of tachycardia and diarrhea. He is nonverbal at baseline and can provide no history. EMS notes the patient was mildly hypoxic in the upper 80s
and was following commands. Noted to be febrile on arrival
Past History
Past History
ED Past Medical History: HTN, Hypercholesterolemia, Psychiatric and Other (nonverbal, ID)
Social History
Tobacco: Non-smoker
Review of Systems
Review of Systems
Allergies reviewed?: Yes
All Other Systems: ROS reviewed and negative except as documented in HPI and ROS
Phy Exam
Physical Exam
Physical Exam:
GEN: Somnolent but arouses to voice, tachypneic and ill-appearing
HEENT: Oral mucosa moist, white plaque coating the tongue, mouth breathing
Cardiac: Tachycardic, regular
Lung: Tachypneic, mouth breathing, globally clear lungs
Abdomen: Soft, nontender
MSK: No gross deformity or injuries
Skin: Good color, no pallor or jaundice, no rashes
Neuro: Somnolent, nonverbal at baseline, follows commands
Psych: Calm, cooperative
Sepsis
Sepsis Screening
Sepsis Assessment: Severe Sepsis
Sepsis Screening: Lactate >2mmol/L
Sepsis Screen
Sepsis Screen: Severe Sepsis
Date: 07/07/24
Time: 08:18
Course
Orders/Labs/Results
Orders:
Orders
07/07/24 06:41
CT Head W/o Iv Contrast Urgent
Comment:
Reason For Exam: AMS
CR Chest - 2 Views Urgent
Comment:
Reason For Exam: hypoxic/fever
07/07/24 07:00
COVID-19 Antigen Urgent
Source: Nasal Swab
Complete Blood Count/With Diff Urgent
Comprehensive Metabolic Panel Urgent
Lactic Acid Q4H
Comment: CANCEL 2nd LACTIC ACID IF 1st LACTIC ACID IS LESS THAN 2
Urinalysis Reflex To Culture Urgent
Date Specimen was Collected: 07/07/24
Time Specimen was Collected: 06:44
Urine Microscopic Reflex Cult Urgent
Blood Culture Q30M
LINN Source: Blood/Venous
Specimen Description:
Blood Culture Q30M
LINN Source: Blood/Venous
Specimen Description:
Influenza A+B Rapid Molecular Urgent
LINN Source: Nasal Swab
Specimen Description:
Urine Culture Urgent
LINN Source: U
Specimen Description:
Date Specimen was Collected: 07/07/24
Time Specimen was Collected: 06:44
07/07/24 07:30
0.9% Sodium Chloride 1000 ml [Nss] 1,000 ml IV BOLUS
07/07/24 07:46
Acetaminophen 1000MG/100Ml [Ofirmev] 1,000 mg in 100 ml IV ONCE
Acetaminophen IV Indication:: ED Narcotic Naive Pt-ONCE
07/07/24 08:01
Piperacillin/Tazo 3.375 Gram [Zosyn] 3.375 gram in 50 ml IV NOW
07/07/24 10:45
Lactic Acid Q4H
Comment: CANCEL 2nd LACTIC ACID IF 1st LACTIC ACID IS LESS THAN 2
Abnormal Lab Results
07/07/24
07:00
RBC 4.61 L 10^6/uL
(4.70-6.10)
MCV 95.7 H fL
(80.0-94.0)
MCH 33.0 H pg
(27.0-31.0)
MPV 10.5 H fL
(7.4-10.4)
Abs Immat Gran (auto) 0.1 H 10^3/uL
(0-0.05)
Absolute Neuts (auto) 7.8 H 10^3/uL
(1.4-6.5)
Absolute Lymphs (auto) 0.7 L 10^3/uL
(1.2-3.4)
Immature Gran % 0.7 H %
(0-0.5)
Neutrophils % 85.8 H %
(42.2-75.2)
Lymphocytes % 7.9 L %
(20.5-51.1)
Chloride 110 H mmol/L
(98-107)
Carbon Dioxide 17 L mmol/L
(22-30)
BUN 22 H mg/dl
(9-20)
Glucose 143 H mg/dl
(70-99)
Lactic Acid 2.6 H mmol/L
(0.7-2.0)
Ur Occult Blood Reflex 3+ A
(Negative)
Leukocyte Esterase Rfl 2+ A
(Negative)
Urine Albumin (Reflex) 2+ A
(Neg - Trace)
07/07/24 07:00
07/07/24 07:00
Vital Signs
Initial and Last Documented VS:
Initial Vital Signs
Temp Pulse Resp BP Pulse Ox
100.2 F 118 18 115/70 90
07/07/24 06:35 07/07/24 06:35 07/07/24 06:35 07/07/24 06:35 07/07/24 06:35
Last Documented Vital Signs
Temp Pulse Resp BP Pulse Ox
103.5 F H 110 29 105/54 96
07/07/24 07:50 07/07/24 07:50 07/07/24 07:50 07/07/24 07:50 07/07/24 07:50
MDM/Problems Addressed
MDM/Problems Addressed:
History is very limited as the patient is nonverbal at baseline. He has a reported history of aspiration pneumonia and arrives with hypoxia, occasional cough, and fever. He has right-sided infiltrates on chest x-ray versus chronic pulmonary
scarring, as such we will treat with Zosyn for suspected aspiration pneumonia, urinalysis also suspicious for potential UTI. Will be admitted to the hospitalist service for further management particularly in the case of hypoxemia requiring
supplemental oxygen
*Critical Care Note
Total Time (30-74mins, 75-104mins- exclusive of procedures): Not Applicable
ED Attending Note
-
Portions of this chart may have been created with voice recognition software.� Occasional wrong word or��sound alike� substitutions may have occurred due to the inherent limitations of voice recognition software.
Discharge Plan
Departure
Patient Disposition: Admit
Date of Disposition: 07/07/24
Time of Disposition: 08:04
Admit to: Med/Surg
Admit to doctor: [facility]
Presentation/result/management discussed w/ accepting MD/DO: Hospitalist
Discharge Problem:
Severe sepsis, Pneumonia
Prescriptions:
No Action
loperamide 2 MG capsule
2 mg PO Q4H PRN (Reason: loose stool)
famotidine [Acid Controller] 20 MG tablet
20 mg PO BID
magnesium hydroxide 30 ML suspension
30 ml PO Q12H PRN (Reason: constipation)
tamsulosin 0.4 MG capsule
0.4 mg PO HS
mirtazapine 30 MG tablet
30 mg PO HS
lisinopril 5 MG tablet
5 mg PO DAILY
buspirone 15 MG tablet
15 mg PO BID
acetaminophen [Tylenol] 325 MG capsule
650 mg PO Q4H PRN (Reason: mild pain/BARCLAY/temp>100.4)
sodium chloride 5 % drops
1 drp RIGHT EYE TID
docusate sodium 50 mg/5 mL liquid
100 mg PO BID
sennosides [senna] 8.6 mg Tablet
17.2 mg PO HS
ketoconazole 2 % shampoo
1 applic TOPICAL MOTH
dextromethorphan-guaifenesin [Chest Congestion Relief DM] 10-100 mg/5 mL Syrup
10 ml PO Q6H PRN (Reason: cough/congestion)
zinc oxide 20 % Ointment
1 applic TOPICAL PRN PRN (Reason: prevent skin breakdown)
Rx Instructions:
apply to chela area
sodium chloride [Stacey 128] 5 % ointment
1 applic RIGHT EYE BID
levothyroxine 50 mcg tablet
50 mcg PO DAILY
Debrox 6.5 % Drops
4 drp EACH EAR MONTHLY
Rx Instructions:
Instill 4 drps in both ears at bedtime on the 1st day of each month
metoprolol succinate 25 mg tablet extended release 24 hr
25 mg PO DAILY
ibuprofen 600 mg Tablet
600 mg PO Q6H PRN (Reason: dental pain)
polyethylene glycol 3350 17 gram/dose powder
17 g PO DAILY
olopatadine 0.2 % Drops
1 drp BOTH EYES DAILY PRN (Reason: allergic symptoms/itching)
Desitin Daily Defense 13 % Cream
1 applic TOPICAL PRN PRN (Reason: rash)
Rx Instructions:
apply to groin/buttocks
Nuedexta 20-10 mg capsule
1 cap PO DAILY
apixaban 5 mg Tablet
5 mg PO BID
triamcinolone acetonide 0.1 % ointment
1 applic topical BID 7 Days Qty: 30 0RF
bacitracin 500 unit/gram ointment
1 applic topical DAILY 7 Days Qty: 28 0RF
Referrals:
UNKNOWN - PT DOES,NOT KNOW [Family Provider] -
Interventions
Interventions:
*Risk Screen - Suicide Last Done: 07/07/24 06:35
*General Assessment Last Done: 07/07/24 06:35
*Neglect/Abuse Screening Last Done: 07/07/24 06:35
*ED- Fall Risk Assessment Last Done: 07/07/24 06:35
*ED COVID-19 Vaccine History Last Done: 07/07/24 06:35
ED- Neurological Assessment Last Done: 07/07/24 06:35
ED-Skin Assessment Last Done: 07/07/24 06:35
Discharge Date and Time
Print Language: SINHALA
[2024-07-07 07:17] LABS: % Basophils 0.2 % (0-2); % Eosinophils 0.1 % (0-6); % Immature Granulocytes 0.7 % (0-0.5); % Lymphocytes 7.9 % (20.5-51.1); % Monocytes 5.3 % (1.7-9.3); % Neutrophils 85.8 % (42.2-75.2); Absolute Immature Granulocytes 0.1 10^3/uL (0-0.05); Absolute Lymphocytes 0.7 10^3/uL (1.2-3.4); Absolute Monocytes 0.5 10^3/uL (0.1-0.6); Absolute Neutrophils 7.8 10^3/uL (1.4-6.5); Hematocrit 44.1 % (39.0-52.0); Hemoglobin 15.2 g/dL (13.0-18.0); Mean Corp Hgb Conc. 34.5 g/dL (33.0-37.0); Mean Corpuscular Volume 95.7 fL (80.0-94.0); Mean Platelet Volume 10.5 fL (7.4-10.4); Nucleated Red Blood Cells % 0 % (-); Platelet Count 230 10^3/uL (130-400); Red Blood Cell Count 4.61 10^6/uL (4.70-6.10); Red Cell Dist. Width 12.7 % (11.5-14.5); White Blood Cell Count 9.1 10^3/uL (4.8-10.8)
[2024-07-07 07:26] LABS: Lactic Acid 2.6 mmol/L (0.7-2.0)
[2024-07-07 07:27] LABS: ALT (SGPT) 19 U/L (0-50); AST (SGOT) 21 U/L (17-59); Albumin 3.8 g/dl (3.5-5.0); Alkaline Phosphatase 66 U/L (38-126); Blood Urea Nitrogen 22 mg/dl (9-20); Calcium 9.2 mg/dl (8.4-10.2); Carbon Dioxide 17 mmol/L (22-30); Chloride 110 mmol/L (98-107); Estimated Creatinine Clearance 55 ml/min; Glucose 143 mg/dl (70-99); Potassium 3.6 mmol/L (3.5-5.1); Sodium 140 mmol/L (135-145); Total Bilirubin 0.7 mg/dl (0.2-1.3); Total Protein 6.6 g/dl (6.3-8.2); eGFR > 60.00
[2024-07-07 07:32] LABS: COVID-19 Antigen Negative (Negative)
[2024-07-07 07:46] LABS: Urine Albumin 2+ (Neg - Trace); Urine Bilirubin Negative (Negative); Urine Character Clear (Clear); Urine Color Yellow; Urine Glucose Negative (Negative); Urine Ketone Negative (Negative); Urine Leukocyte 2+ (Negative); Urine Nitrite Negative (Negative); Urine Occult Blood 3+ (Negative); Urine Urobilinogen Negative (Neg - 1+)
[2024-07-07] MEDS: NSS 1000 IV (07:46)
[2024-07-07] MEDS: OFIRMEV 100 IV (07:52)
[2024-07-07] MEDS: ZOSYN 50 IV ×3 (09:00→20:27)
--- NOTE | 2024-07-07 09:25 | HPS.HSE ---
Family Physician
-
Family Physician: NOT KNOW UNKNOWN - PT DOES
Chief Complaint
-
Fever
History of Present Illness
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
pneumonia presenting from his [facility] facility with fever. Patient is nonverbal at baseline and provides no supplemental history. EMS was called due to fevers and tachycardia at the facility. Was found to be hypoxemic with SpO2 in
the upper 80s and brought into the emergency department. Through ED course was tachycardic with heart rate 110 to 120/min, febrile at 103.5 �F, hypoxemic requiring 6 L O2, but otherwise hemodynamically stable. Labs with bicarb 17, lactate 2.6. UA
fairly bland with urine WBC pending. Flu and COVID-negative. CT head limited by motion artifact but no obvious acute findings. Chest x-ray with signs of opacification at the right lung base with final read pending. Blood cultures x 2 and urine
culture were obtained. Was started on IV fluids, IV Zosyn and IV Tylenol while in the ED.
Medical History
Past Medical History
Past Medical History: Reports Other
Additional Past Medical History:
Intellectual disability
Dementia
Bipolar disorder
Pseudobulbar affect
Tardive dyskinesia
Paroxysmal AFL on Eliquis
Hypertension
GERD
Hypothyroidism
Vitamin B12 deficiency
Dysphagia
BPH
Nonverbal
Past Surgical History: Reports Other
Additional Past Surgical History:
TURP (2021)
Esophageal dilation (2009)
Social History
Unable to obtain full social history at this time due to: Dementia
Family History
Family History: Not pertinent
Allergies / Home Medications
Allergies reflects when Allergies were last updated in [employer].
Home Medications with original date entered in [employer]
Allergy/Medication List:
Allergies
Allergy/AdvReac Type Severity Reaction Status Date / Time
benztropine Allergy Unknown Verified 07/07/24 06:39
risperidone [From Risperdal] Allergy Unknown Verified 07/07/24 06:39
Home Medications
acetaminophen 325 mg capsule (Tylenol) 650 mg PO Q4H PRN mild pain/BARCLAY/temp>100.4 07/17/21
buspirone 15 mg tablet 15 mg PO BID Mental Health/Anxiety 07/17/21
famotidine 20 mg tablet (Acid Controller) 20 mg PO BID Gastrointestinal Issue 07/17/21
lisinopril 5 mg tablet 5 mg PO DAILY Blood Pressure 07/17/21
loperamide 2 mg capsule 2 mg PO Q4H PRN loose stool 07/17/21
magnesium hydroxide 400 mg/5 mL oral suspension 30 ml PO Q12H PRN constipation 07/17/21
mirtazapine 30 mg tablet 30 mg PO HS Mental Health/Anxiety 07/17/21
tamsulosin 0.4 mg capsule 0.4 mg PO HS Urinary Issue 07/17/21
apixaban 5 mg tablet 5 mg PO BID Blood Clot Prevention/Tx 04/29/23
carbamide peroxide 6.5 % ear drops (Debrox) 4 drp EACH EAR MONTHLY ear problem 04/29/23
dextromethorphan 20 mg-quinidine 10 mg capsule (Nuedexta) 1 cap PO DAILY Congestion 04/29/23
dextromethorphan-guaifenesin 10 mg-100 mg/5 mL oral syrup (Chest Congestion Relief DM) 10 ml PO Q6H PRN cough/congestion 04/29/23
docusate sodium 50 mg/5 mL oral liquid 100 mg PO BID Constipation 04/29/23
ibuprofen 600 mg tablet 600 mg PO Q6H PRN dental pain 04/29/23
ketoconazole 2 % shampoo 1 applic topical MOTH scalp problem 04/29/23
levothyroxine 50 mcg tablet 50 mcg PO DAILY Thyroid 04/29/23
metoprolol succinate 25 mg tablet,extended release 24 hr 25 mg PO DAILY Heart Failure 04/29/23
olopatadine 0.2 % eye drops 1 drp BOTH EYES DAILY PRN allergic symptoms/itching 04/29/23
polyethylene glycol 3350 17 gram/dose oral powder 17 g PO DAILY Constipation 04/29/23
sennosides 8.6 mg tablet (senna) 17.2 mg PO HS Constipation 04/29/23
sodium chloride 5 % eye drops 1 drp RIGHT EYE TID Eye Condition 04/29/23
sodium chloride 5 % eye ointment (Stacey 128) 1 applic RIGHT EYE BID Eye Condition 04/29/23
zinc oxide 13 % topical cream (Desitin Daily Defense) 1 applic topical PRN PRN rash 04/29/23
zinc oxide 20 % topical ointment 1 applic topical PRN PRN prevent skin breakdown 04/29/23
bacitracin 500 unit/gram topical ointment 1 applic topical DAILY 7 days #28 grams 12/18/23
triamcinolone acetonide 0.1 % topical ointment 1 applic topical BID 7 days #30 grams 12/18/23
Review of Systems
-
Unable to obtain full review of systems at this time due to: Dementia
Physical Exam
Vital Signs
Vital Signs
Temp Pulse Resp BP Pulse Ox
103.5 F H 110 29 105/54 96
07/07/24 07:50 07/07/24 07:50 07/07/24 07:50 07/07/24 07:50 07/07/24 07:50
Physical Exam
General: Well Developed, No Apparent Distress and Cachectic
HEENT: NormoCephalic, Anicteric, Moist mucous membranes, Atraumatic, PERRLA and Oxygen
Cardiac: S1/S2, Regular Rhythm and Tachycardia; No Murmur, Rub, Gallop or Peripheral Edema
GI: Soft, Non Tender, Non Distended and Normal Bowel Sounds
Genito-urinary: No costovertebral tender
Musculoskeletal: No Clubbing and No Cyanosis
Neuro: Awake, Alert, Nonfocal/grossly intact, Cranial Nerves Intact and Tremors; No Oriented
Laboratory Results
-
07/07/24 07:00
07/07/24 07:00
Laboratory Results
Lactic Acid 2.6 mmol/L (0.7-2.0) H 07/07/24 07:00
Total Bilirubin 0.7 mg/dl (0.2-1.3) 07/07/24 07:00
AST 21 U/L (17-59) 07/07/24 07:00
ALT 19 U/L (0-50) 07/07/24 07:00
Alkaline Phosphatase 66 U/L (38-126) 07/07/24 07:00
Data Reviewed
-
Lab Data: Labs Reviewed by me and Discussed with Physician (ED)
Impression/Plan
-
#Acute hypoxemic respiratory failure
#Sepsis secondary to aspiration pneumonia
#Lactic acidosis
-Unclear if this is aspiration pneumonia versus pneumonitis, presumed aspiration at facility
-Presented with high-grade fever, tachycardia, tachypnea, O2 requirement of 6 L
-Has chronic aspiration risk due to psych issues, TD, previous esophageal dilation
-No leukocytosis on arrival, did have lactate elevated at 2.6 with metabolic acidosis
-Chest x-ray with no obvious consolidation, does have some opacification in right lung base
-Was started on IV Zosyn after blood and urine cultures in the ED, started Tylenol for fever
-Has remained hemodynamically stable without requirement for vasopressors
Plan
-Continue IV Zosyn for now, add on procalcitonin
-Trend CBC and temperature curve, follow cultures
-Start pulmonary toileting with Acapella, Mucinex
-Wean supplemental oxygen for SpO2 >90%
-Maintenance IVF, trend lactic acid to normal levels
-Aspiration precautions, NPO, OBSTETRICS TEACHER eval
#Diarrhea
#Chronic constipation
-Mentioned per history of diarrhea recently
-Reviewed med show standing bowel regimen
-Will hold bowel regimen and monitor for now
#Paroxysmal AFL
-Home regimen includes metoprolol succinate and Eliquis
-Currently tachycardic as above but likely related to sepsis
-Will monitor on telemetry, continue with home regimen
-Transitioning Eliquis to full dose Lovenox while n.p.o.
#Primary hypertension
-No known history of hypertensive systemic disease
-Home regimen includes metoprolol and lisinopril
-Will hold lisinopril due to sepsis, consider resuming if stable
#GERD
#H/O esophageal dilation
-Home medications include famotidine twice daily
-Unclear indication for his esophageal dilation
-Continue on home regimen
#Hypothyroidism
-Unclear cause, Home regimen includes levothyroxine 50 mcg daily
#BPH s/p TURP
-Remains on tamsulosin nightly
-No signs of urinary obstruction at this time
-Monitor with bladder scans
#Bipolar disorder
#Pseudobulbar affect
#Tardive dyskinesia
#ID/dementia
-Substantial psychiatric history, nonverbal baseline
-Home regimen includes buspirone, mirtazapine
-Has significant TD likely contributing to aspiration risk
-Consider psych consult if worsening
Diet: N.p.o. pending OBSTETRICS TEACHER
DVT prophylaxis: Full dose Lovenox until he can tolerate home Eliquis
CODE STATUS: Full code for now (paperwork from facility did not have CODE STATUS listed. I attempted to call his facility and was directed to voicemail and left a message with my personal contact information in order to further delineate his CODE
STATUS)
[2024-07-07 09:35] LABS: Urine White Cell 70-80 /HPF (0-5)
[2024-07-07 09:36] LABS: Urine Bacteria Moderate (Negative); Urine Hyaline Cast 0-2 /LPF (0-2)
--- NOTE | 2024-07-07 10:41 | EDRN ---
the pts aid approached this RN at the nurses station and stated that this RN needed to help the pt, the pt was found standing at the foot of the bet with the PIV out, this RN placed a pressure dressing on the right hand PIV and the pt was able to
ambulate to the bathroom, this RN attempted to explain to the pt that he should not be out of bed and the pt swung at this RN, the pt has diarrhea
--- NOTE | 2024-07-07 12:02 | EDRN ---
the pt continues to try to get up out of the stretcher even with aid present, the pt is IMU status and is on oxygen, this RN notified charge nurse, bed alarm was put in place and the pt is now intermittent observation for safety
[2024-07-07] MEDS: LR 1000 IV (12:37)
[2024-07-07 13:05] LABS: Lactic Acid 1.9 mmol/L (0.7-2.0)
[2024-07-07 13:20] LABS: Procalcitonin 3.82 ng/ml (0.0-0.25)
--- NOTE | 2024-07-07 13:37 | EDRN ---
physical therapy currently at the pts bedside
--- NOTE | 2024-07-07 14:03 | EDRN ---
this RN titrated the pts 02 from 6L to 4L NC
--- NOTE | 2024-07-07 15:14 | PTOTSP ---
Speech Language Pathology
Pt seen for clinical bedside swallow evaluation. Pt appeared to have micrognathia and was edentulous. Caregiver present at bedside stated that pt eats regular foods; however, facility facesheet in room stated pureed solids/thin liquids with
allowance of soft cookies at times. P.O. trials of puree and thin liquids provided. Slightly prolonged A-P transit noted with full oral clearance. No overt signs of aspiration. No prior PNA noted in history with no hx with SIEBEL ARCHITECT at .
Recommend:
(1) Initiate IDDSI Level 4 (Puree) and Thin Liquids
(2) Aspiration precautions: full assist, slow rate
(3) Meds crushed in puree as able
(4) SIEBEL ARCHITECT to continue to follow
[2024-07-07] MEDS: LOVENOX 60 MG SC (16:42)
[2024-07-07] MEDS: MURO 128/ADSORBONAC 5% EYE DROPS 1 DROP RIGHT EYE ×2 (16:43→20:27)
--- NOTE | 2024-07-07 17:46 | PTCARENOTE ---
Pt arrived to floor from the ER on stretcher. Pt 88% on 4L - increased to 6L and SpO@ ~ 96%; AAO x 1; Pt mostly non-verbal, will say a few words to communicate. AAO x 1; Follows some simple commands; Loose BM upon arrival, with BM noted all over
pt; Pt thoroughly cleaned in bed. NSS infusing into LFA @ 90ml/hr. Pt on strict NPO, to be evaluated by speech. Pt's sister present at bedside - provided admission information. Pt oriented to room, Bed alarm on; call moon within reach. Will
continue to monitor and assess.
[2024-07-07] MEDS: FLOMAX PO (20:24)
[2024-07-07] MEDS: MUCINEX PO (20:24)
[2024-07-07] MEDS: BUSPAR PO (20:24)
[2024-07-07] MEDS: REMERON PO (20:24)
[2024-07-07] MEDS: PEPCID PO (20:24)
[2024-07-07] MEDS: ERYTHROMYCIN 0.5% OPHTHALMIC OINTMENT 1 APPLIC BOTH EYES (23:17)
[2024-07-07] MEDS: LR IV (23:17)
[2024-07-08] VITALS (12 sets, daily range): BP systolic 108–134; BP diastolic 50–78
[2024-07-08] MEDS: ZOSYN 50 IV ×4 (02:03→21:28)
--- NOTE | 2024-07-08 03:05 | PTCARENOTE ---
Pt received at beginning of shift resting in bed. Sister at bedside. AAOx1. Pt gives one word answers or just makes sounds. Will say 'wet' went his is incontinent. Pt has had 3 incontinent episodes of loose bm. IVF's infusing as ordered. Lungs
coarse, diminished throughout with crackles at bases. Occasional dry associate professor of economics cough noted. Sister refused Scd's for pt stating pt is very claustrophobic. Right lateral ankle with stage 1 pressure ulcer. Wounds updated and care completed. VSS. Afebrile. SR
on CM. POX 4L NC 97-98%. Rest of assessment as documented. Pt turns self. Call moon remains within reach. Call moon remains on and working. Will continue to monitor.
[2024-07-08 04:04] LABS: % Basophils 0.2 % (0-2); % Immature Granulocytes 0.4 % (0-0.5); % Lymphocytes 10.1 % (20.5-51.1); % Monocytes 8.8 % (1.7-9.3); % Neutrophils 80.5 % (42.2-75.2); Absolute Immature Granulocytes 0.1 10^3/uL (0-0.05); Absolute Lymphocytes 1.4 10^3/uL (1.2-3.4); Absolute Monocytes 1.2 10^3/uL (0.1-0.6); Absolute Neutrophils 10.8 10^3/uL (1.4-6.5); Hematocrit 38.9 % (39.0-52.0); Hemoglobin 13.2 g/dL (13.0-18.0); Mean Corp Hgb Conc. 33.9 g/dL (33.0-37.0); Mean Corpuscular Hgb 32.7 pg (27.0-31.0); Mean Corpuscular Volume 96.3 fL (80.0-94.0); Mean Platelet Volume 10.4 fL (7.4-10.4); Nucleated Red Blood Cells % 0 % (-); Platelet Count 198 10^3/uL (130-400); Red Blood Cell Count 4.04 10^6/uL (4.70-6.10); Red Cell Dist. Width 12.7 % (11.5-14.5); White Blood Cell Count 13.4 10^3/uL (4.8-10.8)
[2024-07-08 04:25] LABS: Blood Urea Nitrogen 23 mg/dl (9-20); Calcium 9.2 mg/dl (8.4-10.2); Carbon Dioxide 22 mmol/L (22-30); Chloride 112 mmol/L (98-107); Estimated Creatinine Clearance 61 ml/min; Glucose 98 mg/dl (70-99); Magnesium 1.9 mg/dl (1.6-2.3); Potassium 3.6 mmol/L (3.5-5.1); Sodium 143 mmol/L (135-145); eGFR > 60.00
[2024-07-08] MEDS: SYNTHROID PO (05:03)
[2024-07-08] MEDS: LOVENOX 60 MG SC (05:42)
[2024-07-08] MEDS: LR 1000 IV (06:22)
[2024-07-08] MEDS: BUSPAR PO (08:04)
[2024-07-08] MEDS: MUCINEX PO (08:05)
[2024-07-08] MEDS: MURO 128/ADSORBONAC 5% EYE DROPS 1 DROP RIGHT EYE ×3 (08:05→21:31)
[2024-07-08] MEDS: PEPCID PO (08:05)
[2024-07-08] MEDS: TOPROL XL PO (08:05)
--- NOTE | 2024-07-08 11:01 | W.PN.HOSP.TC ---
Today's Communication/Plan
-
Continue IV Zosyn
Hold bowel regimen
Follow stool culture
PT/OOB
Assessment / Plan
Assessment / Plan
#Acute hypoxemic respiratory failure
#Sepsis secondary to aspiration pneumonia
#Acute on chronic encephalopathy
#Lactic acidosis
-Unclear if this is aspiration pneumonia versus pneumonitis, presumed aspiration at facility
-Presented with high-grade fever, tachycardia, tachypnea, O2 requirement of 6 L
-Has chronic aspiration risk due to psych issues, TD, previous esophageal dilation
-Chest x-ray with no obvious consolidation, does have some opacification in b/l bases
-Was started on IV Zosyn after blood and urine cultures in the ED, started Tylenol for fever
-Has remained hemodynamically stable without requirement for vasopressors
-Oxygen status improving, mental status improving as well
Plan
-Continue IV Zosyn
-Trend CBC and temperature curve, follow cultures
-Pulmonary toileting with Acapella, Mucinex
-Wean supplemental oxygen for SpO2 >90%
-Aspiration precautions
#Diarrhea
#Chronic constipation
-Mentioned per history of diarrhea recently
-Reviewed med show standing bowel regimen
-Will hold bowel regimen and monitor for now
-C. difficile negative, negative stool WBC
-Follow up stool culture
#Paroxysmal AFL
-Home regimen includes metoprolol succinate and Eliquis
-Currently tachycardic as above but likely related to sepsis
-Will monitor on telemetry, continue with home regimen
#Primary hypertension
-No known history of hypertensive systemic disease
-Home regimen includes metoprolol and lisinopril
-Will hold lisinopril due to sepsis, consider resuming if stable
#GERD
#H/O esophageal dilation
-Home medications include famotidine twice daily
-Unclear indication for his esophageal dilation
-Continue on home regimen
#Hypothyroidism
-Unclear cause, Home regimen includes levothyroxine 50 mcg daily
#BPH s/p TURP
-Remains on tamsulosin nightly
-No signs of urinary obstruction at this time
-Monitor with bladder scans
#Bipolar disorder
#Pseudobulbar affect
#Tardive dyskinesia
#ID/dementia
-Substantial psychiatric history, nonverbal baseline
-Home regimen includes buspirone, mirtazapine
-Has significant TD likely contributing to aspiration risk
-Consider psych consult if worsening
Diet: Pur�ed diet
DVT prophylaxis: Transition back to home Eliquis
CODE STATUS: Full code
Anticipated Discharge: 24 - 48 hours
Subjective/Interval History
-
Date of Service: July 08, 2024
Seen and examined at the bedside. No acute events reported overnight. AFVSS on room air
Family at bedside, confirms full code. States she notices improvement from yesterday. WBC up to 13.4
ROS limited by baseline mental status
Objective Data
-
Labs:
Laboratory Results
07/08/24
03:53
WBC 13.4 H
Hgb 13.2
Hct 38.9 L
Plt Count 198
Sodium 143
Potassium 3.6
Chloride 112 H
Carbon Dioxide 22
BUN 23 H
Creatinine 0.9
Glucose 98
Calcium 9.2
Vital Signs:
Vital Signs
Temp Pulse Resp BP Pulse Ox
97.4 F 69 21 115/54 96
07/08/24 07:59 07/08/24 06:00 07/08/24 06:00 07/08/24 06:00 07/08/24 06:00
I&O
07/07/24 07/08/24 07/09/24
06:59 06:59 06:59
Intake Total 1180 / 1180
Balance 1180 / 1180
Review of Systems
-
History Source: Patient
All other systems: Reviewed and negative
Physical Exam
-
General: Well Developed, No Apparent Distress, Appears Chronically Ill and Cachectic
HEENT: Normocephalic, Atraumatic, Moist Mucous Membranes and Anicteric
Respiratory: Crackles and Non Labored Respirations; Negative Wheezes, Rhonchi or Accessory Resp Muscle Use
Cardiac: Regular Rhythm and S1/S2; Negative Murmur, Rub or Gallop
GI: Soft, Nontender, Nondistended and Normal Bowel Sounds
Musculoskeletal: No Clubbing, No Cyanosis and No Edema
Skin: Warm and Dry; Negative Rash
Neuro: Awake, Alert and Nonfocal/Grossly Intact; Negative Oriented
Psych: Calm
Data Reviewed
-
Labs: Labs Reviewed by me and Discussed with Family
--- NOTE | 2024-07-08 15:33 | PTCARENOTE ---
Patient AAOxelf, forgetful, restless at times, has few words he uses to communicate. Sister at bedside. Bed and chair alarms on as patient does not use call moon appropriately. VSS. Weaned to RA, sats 94%. Eating lunch, aspiration precautions. LR
infusing as ordered. To be transferred to soon. Will closely monitor.
[2024-07-08] MEDS: PEPCID 20 MG PO (21:27)
[2024-07-08] MEDS: BUSPAR 15 MG PO (21:27)
[2024-07-08] MEDS: MUCINEX 600 MG PO (21:28)
[2024-07-08] MEDS: ELIQUIS 5 MG PO (21:28)
[2024-07-08] MEDS: FLOMAX 0.4 MG PO (21:29)
[2024-07-08] MEDS: REMERON 30 MG PO (21:29)
[2024-07-08] MEDS: ERYTHROMYCIN 0.5% OPHTHALMIC OINTMENT 1 APPLIC BOTH EYES (21:31)
[2024-07-08] MEDS: MURO 5% OPHTHALMIC OINTMENT 1 APPLIC RIGHT EYE (23:09)
[2024-07-09] MEDS: VISBIOME 1 CAP PO ×2 (03:11→08:27)
[2024-07-09] MEDS: ZOSYN 50 IV ×4 (03:11→20:19)
[2024-07-09 03:45] VITALS: BP 111/59
[2024-07-09] MEDS: SYNTHROID 50 MCG PO (06:09)
[2024-07-09 07:32] VITALS: BP 111/50
[2024-07-09 07:33] LABS: % Basophils 0.3 % (0-2); % Eosinophils 0.4 % (0-6); % Immature Granulocytes 0.3 % (0-0.5); % Lymphocytes 21.2 % (20.5-51.1); % Monocytes 9.1 % (1.7-9.3); % Neutrophils 68.7 % (42.2-75.2); Absolute Monocytes 0.9 10^3/uL (0.1-0.6); Absolute Neutrophils 6.5 10^3/uL (1.4-6.5); Hematocrit 33.3 % (39.0-52.0); Hemoglobin 11.6 g/dL (13.0-18.0); Mean Corp Hgb Conc. 34.8 g/dL (33.0-37.0); Mean Corpuscular Volume 94.9 fL (80.0-94.0); Mean Platelet Volume 10.5 fL (7.4-10.4); Nucleated Red Blood Cells % 0 % (-); Platelet Count 199 10^3/uL (130-400); Red Blood Cell Count 3.51 10^6/uL (4.70-6.10); Red Cell Dist. Width 12.6 % (11.5-14.5); White Blood Cell Count 9.4 10^3/uL (4.8-10.8)
[2024-07-09 07:59] LABS: Blood Urea Nitrogen 15 mg/dl (9-20); Calcium 8.9 mg/dl (8.4-10.2); Carbon Dioxide 23 mmol/L (22-30); Chloride 113 mmol/L (98-107); Estimated Creatinine Clearance 79 ml/min; Glucose 84 mg/dl (70-99); Potassium 3.5 mmol/L (3.5-5.1); Sodium 143 mmol/L (135-145); eGFR > 60.00
[2024-07-09] MEDS: ELIQUIS 5 MG PO ×2 (08:25→20:17)
[2024-07-09] MEDS: BUSPAR 15 MG PO ×2 (08:25→20:17)
[2024-07-09] MEDS: MURO 128/ADSORBONAC 5% EYE DROPS 1 DROP RIGHT EYE ×3 (08:26→21:40)
[2024-07-09] MEDS: MURO 5% OPHTHALMIC OINTMENT 1 APPLIC RIGHT EYE ×2 (08:26→20:18)
[2024-07-09] MEDS: PEPCID 20 MG PO ×2 (08:27→20:18)
[2024-07-09] MEDS: ZESTRIL 5 MG PO (08:28)
[2024-07-09] MEDS: MUCINEX PO ×2 (08:35→20:18)
[2024-07-09] MEDS: TOPROL XL PO (08:35)
[2024-07-09] MEDS: KLOR-CON 20 MEQ PO ×2 (09:12→20:18)
[2024-07-09 11:05] VITALS: BP 125/62
--- NOTE | 2024-07-09 12:01 | W.PN.HOSP.TC ---
Addendum entered and electronically signed by Dandy Russo DO 07/10/24 09:38:
CDI
- Stage I ankle pressure ulcer, POA
- Metabolic encephalopathy due to aspiration superimposed on baseline dementia/psych illness
Original Note:
Today's Communication/Plan
-
Continue IV Zosyn for today
Start as needed Imodium
Possible DC on oral antibiotics tomorrow
Assessment / Plan
Assessment / Plan
#Acute hypoxemic respiratory failure
#Sepsis secondary to aspiration pneumonia
#Acute on chronic encephalopathy
#Lactic acidosis
-Unclear if this is aspiration pneumonia versus pneumonitis, presumed aspiration at facility
-Presented with high-grade fever, tachycardia, tachypnea, O2 requirement of 6 L
-Has chronic aspiration risk due to psych issues, TD, previous esophageal dilation
-Chest x-ray with no obvious consolidation, does have some opacification in b/l bases
-Was started on IV Zosyn after blood and urine cultures in the ED, started Tylenol for fever
-Has remained hemodynamically stable without requirement for vasopressors
-Oxygen status improving, mental status improving as well
Plan
-Continue IV Zosyn with plan to transition to Augmentin 07/10 to complete 7-day course
-Trend CBC and temperature curve, follow cultures
-Pulmonary toileting with Acapella, Mucinex
-Wean supplemental oxygen for SpO2 >90%
-Aspiration precautions
#Diarrhea
#Chronic constipation
-Mentioned per history of diarrhea recently
-Reviewed med show standing bowel regimen
-Will hold bowel regimen and monitor for now
-Stool culture and C. difficile testing negative
-Start PRN imodium
#Paroxysmal AFL
-Home regimen includes metoprolol succinate and Eliquis
-Currently tachycardic as above but likely related to sepsis
-Will monitor on telemetry, continue with home regimen
#Primary hypertension
-No known history of hypertensive systemic disease
-Home regimen includes metoprolol and lisinopril
-Will hold lisinopril due to sepsis, consider resuming if stable
#GERD
#H/O esophageal dilation
-Home medications include famotidine twice daily
-Unclear indication for his esophageal dilation
-Continue on home regimen
#Hypothyroidism
-Unclear cause, Home regimen includes levothyroxine 50 mcg daily
#BPH s/p TURP
-Remains on tamsulosin nightly
-No signs of urinary obstruction at this time
-Monitor with bladder scans
#Bipolar disorder
#Pseudobulbar affect
#Tardive dyskinesia
#ID/dementia
-Substantial psychiatric history, nonverbal baseline
-Home regimen includes buspirone, mirtazapine
-Has significant TD likely contributing to aspiration risk
-Consider psych consult if worsening
Diet: Pur�ed diet
DVT prophylaxis: Eliquis
CODE STATUS: Full code
Anticipated Discharge: 24 - 48 hours
Subjective/Interval History
-
Date of Service: July 09, 2024
Seen and examined at the bedside. No acute events reported overnight. AFVSS on room air
He was sitting in the chair today. Family at bedside and updated. Had 1 episode of diarrhea overnight
ROS limited by baseline mental status
Objective Data
-
Labs:
Laboratory Results
07/09/24
07:05
WBC 9.4
Hgb 11.6 L
Hct 33.3 L
Plt Count 199
Sodium 143
Potassium 3.5
Chloride 113 H
Carbon Dioxide 23
BUN 15
Creatinine 0.7
Glucose 84
Calcium 8.9
Vital Signs:
Vital Signs
Temp Pulse Resp BP Pulse Ox
98.0 F 70 18 125/62 96
07/09/24 11:05 07/09/24 11:05 07/09/24 11:05 07/09/24 11:05 07/09/24 11:05
I&O
07/08/24 07/09/24 07/10/24
06:59 06:59 06:59
Intake Total 1180 / 1180 100 / 100
Balance 1180 / 1180 100 / 100
Review of Systems
-
Unable to obtain full review of systems at this time due to: Patient Non-verbal
Physical Exam
-
General: Well Developed, No Apparent Distress, Appears Chronically Ill and Cachectic
HEENT: Normocephalic, Atraumatic, Moist Mucous Membranes and Anicteric
Respiratory: Clear to Auscultation and Non Labored Respirations; Negative Accessory Resp Muscle Use
Cardiac: Regular Rhythm and S1/S2; Negative Murmur, Rub or Gallop
GI: Soft, Nontender, Nondistended and Normal Bowel Sounds
Musculoskeletal: No Clubbing, No Cyanosis and No Edema
Skin: Warm and Dry; Negative Rash
Neuro: Awake, Alert, Oriented and Nonfocal/Grossly Intact; Negative AO x 3 or Tremors
Psych: Calm
Data Reviewed
-
Labs: Labs Reviewed by me, Discussed with Nurse and Discussed with Family
--- NOTE | 2024-07-09 12:47 | CM ---
Addendum entered by Lizy Courtney 07/09/24 13:22:
For pt to return to his Shelter. Contact will need to be made with Rn, Tamiko Lombardo (p)[phone]
ID records will need to be sent prior to acceptance back. [facility] will provide transport.
Facility VN choice is [facility]
Original Note:
Initial assessment completed with pts sister at bedside.
Pt is a 68yr old admitted with aspiration PNE.
At baseline, pt lives at [facility], a Shelter with [facility].
At baseline, pt is indep with walking and dressing. Staff aide with bathing and all meals and meds.
Pt is a pureed diet at baseline and self feeds.
Pt is on Palliative Care.
Pt has no hx of VN or SNF.
PCP; Bryan Doss
Pharm; [facility]
PLAN; Return to [facility] at ct.
[facility] (p) [phone]
Yasmine [facility] (p) [phone]
[2024-07-09 15:35] VITALS: BP 106/49
[2024-07-09 19:16] VITALS: BP 135/65
[2024-07-09] MEDS: FLOMAX 0.4 MG PO (21:40)
[2024-07-09] MEDS: REMERON 30 MG PO (21:40)
[2024-07-09] MEDS: ERYTHROMYCIN 0.5% OPHTHALMIC OINTMENT 1 APPLIC BOTH EYES (21:41)
[2024-07-09 23:19] VITALS: BP 145/63
[2024-07-10 03:25] VITALS: BP 108/62
[2024-07-10] MEDS: ZOSYN 50 IV ×3 (03:42→15:18)
[2024-07-10] MEDS: SYNTHROID 50 MCG PO (05:29)
[2024-07-10 07:05] VITALS: BP 138/71
[2024-07-10 07:05] LABS: Hematocrit 34.6 % (39.0-52.0); Mean Corp Hgb Conc. 34.7 g/dL (33.0-37.0); Mean Corpuscular Hgb 32.6 pg (27.0-31.0); Mean Platelet Volume 10.7 fL (7.4-10.4); Platelet Count 200 10^3/uL (130-400); Red Blood Cell Count 3.68 10^6/uL (4.70-6.10); Red Cell Dist. Width 12.5 % (11.5-14.5); White Blood Cell Count 7.3 10^3/uL (4.8-10.8)
[2024-07-10 07:13] LABS: Blood Urea Nitrogen 11 mg/dl (9-20); Carbon Dioxide 23 mmol/L (22-30); Chloride 111 mmol/L (98-107); Estimated Creatinine Clearance 79 ml/min; Glucose 87 mg/dl (70-99); Potassium 4.2 mmol/L (3.5-5.1); Sodium 141 mmol/L (135-145); eGFR > 60.00
[2024-07-10 08:15] LABS: % Basophils 0.5 % (0-2); % Immature Granulocytes 0.4 % (0-0.5); % Monocytes 9.1 % (1.7-9.3); Absolute Eosinophils 0.2 10^3/uL (0-0.7); Absolute Lymphocytes 2.4 10^3/uL (1.2-3.4); Absolute Monocytes 0.7 10^3/uL (0.1-0.6); Nucleated Red Blood Cells % 0 % (-)
--- NOTE | 2024-07-10 09:10 | PN.CDI ---
CDI
- -
CDI:
Physician Documentation Request
Admit Date: 07/07/24 10:04
Dear Doctor Karan,
Please review the following and provide your response in the progress notes.
Clinical Indicators:
- Patient admit with sepsis and acute hypoxic respiratory failure
- 07/09 PN 'Acute on chronic encephalopathy'
- per H&P pmh intellectual disability, dementia, nonverbal
Please specify the known or suspected type of the documented encephalopathy.
Metabolic
Septic
Toxic
Toxic metabolic
Other (please specify)
Use of terms such as suspected, likely, concern for, or probable (associated with a specific diagnosis that is being evaluated, monitored, or treated as if it exists) are acceptable and can be coded in the inpatient setting, when documented at the
time of discharge.
Thank you,
Elias Silveira RN
CDI Specialist
Please use your independent medical judgment in providing your response.
--- NOTE | 2024-07-10 09:13 | PN.CDI ---
CDI
- -
CDI:
Physician Documentation Request
Admit Date: 07/07/24 10:04
Dear Doctor Karan,
Please review the following and provide your response in the progress notes.
Clinical Indicators:
- RN skin assessments indicate Stage 1 right lateral ankle pressure injury, POA
Physician documentation of the type and location of wounds is required for compliant documentation. Based on the above clinical findings and your assessment, please provide the following in your progress note:
1. Location of the ulcer/wound, including laterality.
2. Type (etiology) of ulcer/wound:
- Arterial (ischemic) ulcer
- Traumatic wound
- Pressure (decubitus) ulcer
- Other
Use of terms such as suspected, likely, concern for, or probable (associated with a specific diagnosis that is being evaluated, monitored, or treated as if it exists) are acceptable and can be coded in the inpatient setting, when documented at the
time of discharge.
Thank you,
Elias Silveira RN
CDI Specialist
Please use your independent medical judgment in providing your response.
*Source: National Pressure Ulcer Advisory Panel (NPUAP)
[2024-07-10] MEDS: ELIQUIS 5 MG PO (09:18)
[2024-07-10] MEDS: PEPCID 20 MG PO (09:19)
[2024-07-10] MEDS: TOPROL XL 25 MG PO (09:19)
[2024-07-10] MEDS: MUCINEX PO (09:19)
[2024-07-10] MEDS: VISBIOME 1 CAP PO (09:19)
[2024-07-10] MEDS: ZESTRIL 5 MG PO (09:19)
[2024-07-10] MEDS: BUSPAR 15 MG PO (09:20)
[2024-07-10] MEDS: MURO 5% OPHTHALMIC OINTMENT 1 APPLIC RIGHT EYE (09:20)
[2024-07-10] MEDS: MURO 128/ADSORBONAC 5% EYE DROPS 1 DROP RIGHT EYE ×2 (09:21→16:36)
--- NOTE | 2024-07-10 10:10 | W.PN.HOSP.TC ---
Today's Communication/Plan
-
Discharge today with transitioning to Augmentin 825/125 twice daily for 4 days
Assessment / Plan
Assessment / Plan
Assessment/plan
68-year-old male from behavioral living group facility presented with fever/tachycardia and being managed for acute hypoxic respiratory failure secondary to pneumonia.
#Acute hypoxemic respiratory failure
Likely from aspiration pneumonia versus aspiration pneumonitis
Presented with high-grade fever, tachycardia, tachypnea, O2 requirement of 6 L
Chest x-ray with opacification in b/l bases
Was started on IV Zosyn after blood and urine cultures in the ED, started Tylenol for fever
No requirement for vasopressors
Currently weaned off of oxygen
Pulmonary toileting with Acapella, Mucinex
Aspiration precautions
Transition to Augmentin 825/125 twice daily for 4 more days upon discharge today
#Diarrhea
#Chronic constipation
Mentioned per history of diarrhea recently
standing bowel regimen
Stool culture and C. difficile testing negative
Start PRN imodium
#Paroxysmal AFL
Continue metoprolol succinate and Eliquis
Will monitor on telemetry
#Primary hypertension
Continue metoprolol and lisinopril
#GERD
#H/O esophageal dilation
Continue famotidine twice daily
#Hypothyroidism
Continue levothyroxine 50 mcg daily
#BPH s/p TURP
Remains on tamsulosin nightly
No signs of urinary obstruction at this time
Monitor with bladder scans
#Bipolar disorder
#Pseudobulbar affect
#Tardive dyskinesia
#ID/dementia
Diet: Pur�ed diet
DVT prophylaxis: Eliquis
CODE STATUS: Full code
Anticipated Discharge: Today
Subjective/Interval History
-
Date of Service: July 10, 2024
Patient's sister by the bedside, does not report any acute overnight issues. Reports he looked better.
Objective Data
-
Labs:
Laboratory Results
07/10/24
06:04
WBC 7.3
Hgb 12.0 L
Hct 34.6 L
Plt Count 200
Sodium 141
Potassium 4.2
Chloride 111 H
Carbon Dioxide 23
BUN 11
Creatinine 0.7
Glucose 87
Calcium 9.0
Vital Signs:
Vital Signs
Temp Pulse Resp BP Pulse Ox
97.4 F 62 18 138/71 97
07/10/24 07:05 07/10/24 07:05 07/10/24 07:05 07/10/24 09:19 07/10/24 07:05
I&O
07/09/24 07/10/24 07/11/24
06:59 06:59 06:59
Intake Total 100 / 100 660 / 660
Balance 100 / 100 660 / 660
Review of Systems
-
All other systems: Reviewed and negative (As mentioned in HPI)
Physical Exam
-
General: No Apparent Distress, Appears Chronically Ill and Cachectic
HEENT: Normocephalic, Atraumatic and Moist Mucous Membranes
Respiratory: Clear to Auscultation
Cardiac: Regular Rhythm and S1/S2
GI: Soft, Nontender, Nondistended and Normal Bowel Sounds
Skin: Warm and Dry
Neuro: Awake, Alert and Oriented
Psych: Calm
[2024-07-10 11:05] VITALS: BP 122/54
--- NOTE | 2024-07-10 14:26 | PTCARENOTE ---
pt sitting oob most of day, sister visiting in room. patient able to be redirected, can be impulsive when having to use BR. tolerating diet, assist x1 to BR, gait steady but quick, vss, will continue to monitor.
[2024-07-10 15:20] VITALS: BP 124/50
--- NOTE | 2024-07-10 16:32 | CM ---
Pt cleared for discharge back to [facility] today. Referral sent to [facility] which is facility preference for VN.
[facility] (p) [phone]
fax [phone]
[facility]
[2024-07-10 19:36] VITALS: BP 140/70
--- NOTE | 2024-07-10 19:36 | PTCARENOTE ---
INT and electronic device monitor were removed at 1630 in preparation for discharge. went over discharge instructions with Tamiko Lombardo RN at [facility] at [phone]. at present resident staff from [facility] sitting with patient per patient's
sister Emilie's request since she had to leave. 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
== END 2024-07-10 20:54 | disposition home health service (06) | DRG 871 ==
LOC: 3 WEST ACU 10:04
PROVIDERS: Physician Assistant; Student in an Organized Health Care Education/Training Program; ADMITTING PHYSICIAN Internal Medicine; EMERGENCY PHYSICIAN Emergency Medicine
DX: A41.9 Sepsis, unspecified organism (principal); G93.41 Metabolic encephalopathy; J69.0 Pneumonitis due to inhalation of food and vomit; J96.01 Acute respiratory failure with hypoxia; F03.93 Unspecified dementia, unspecified severity, with mood disturbance; E87.20 Acidosis, unspecified; Z11.52 Encounter for screening for COVID-19; K59.09 Other constipation; I10 Essential (primary) hypertension; K21.9 Gastro-esophageal reflux disease without esophagitis; E03.9 Hypothyroidism, unspecified; Z79.890 Hormone replacement therapy; N40.0 Benign prostatic hyperplasia without lower urinary tract symptoms; F31.9 Bipolar disorder, unspecified; F48.2 Pseudobulbar affect; G24.01 Drug induced subacute dyskinesia; E53.8 Deficiency of other specified B group vitamins; E78.00 Pure hypercholesterolemia, unspecified; F79 Unspecified intellectual disabilities; R13.10 Dysphagia, unspecified; Z90.79 Acquired absence of other genital organ(s); L89.511 Pressure ulcer of right ankle, stage 1
CPT/HCPCS: 70450; 71046; 80048; 80053; 81003; 81015; 83605; 83735; 84145; 85025; 87040; 87045; 87046; 87077; 87086; 87324; 87427; 87449; 87502; 87798; 87811; 89055; 92610; 96361; 96365; 96375; 97162; 97167; 99285

== ENCOUNTER 2024-11-20 16:49 | Inpatient (IN) | payer MEDICARE, MEDICAID, SELFPAY ==
[2024-11-20] VITALS (30 sets, daily range): BP systolic 74–136; BP diastolic 38–81; BMI 26.7
[2024-11-20 12:47] LABS: Hematocrit 36.3 % (39.0-52.0); Hemoglobin 12.1 g/dL (13.0-18.0); Mean Corp Hgb Conc. 33.3 g/dL (33.0-37.0); Mean Corpuscular Volume 92.1 fL (80.0-94.0); Platelet Count 279 10^3/uL (130-400); Red Cell Dist. Width 12.8 % (11.5-14.5)
[2024-11-20 12:59] LABS: ALT (SGPT) 16 U/L (0-50); AST (SGOT) 24 U/L (17-59); Albumin 4.1 g/dl (3.5-5.0); Alkaline Phosphatase 79 U/L (38-126); Blood Urea Nitrogen 26 mg/dl (9-20); Calcium 9.6 mg/dl (8.4-10.2); Carbon Dioxide 19 mmol/L (22-30); Chloride 98 mmol/L (98-107); Glucose 126 mg/dl (70-99); Potassium 4.5 mmol/L (3.5-5.1); Sodium 129 mmol/L (135-145); Total Protein 7.2 g/dl (6.3-8.2); eGFR 19.69
--- NOTE | 2024-11-20 13:29 | ED.GENMED ---
History of Present Illness
General
Chief Complaint: Weakness
Source: family and home care giver
Exam Limitations: non verbal-adult
Time Seen by Provider: 11/20/24 13:01
Nursing documentation reviewed up to this point in time: agreed with
History of Present Illness
History of Present Illness:
68-year-old male past medical history of anxiety depression bipolar disorder, dementia nonverbal at baseline presenting to the emergency department after being found to be lethargic weak and tired today worse than usual. No specific symptoms
described from the patient or menagerie caretaker.
Past History
Past History
ED Past Medical History: HTN, Hypercholesterolemia, Psychiatric and Other (nonverbal, ID)
Social History
Tobacco: Non-smoker
Review of Systems
Review of Systems
Allergies reviewed?: Yes
All Other Systems: ROS reviewed and negative except as documented in HPI and ROS
Phy Exam
Physical Exam
Physical Exam:
GENERAL: Alert
EYE: pupils equal and reactive
NECK: Supple, no significant adenopathy.
ENT: o/p clr, mmm.
CARDIAC: Regular rate and rhythm .
LUNGS: Clear breath sounds bilaterally, no acute respiratory distress, no wheezes/rales/rhonchi
ABDOMEN: Soft, without focal tenderness, no r/g, no cvat
NEUROLOGICAL: Alert patient is nonverbal does move extremities.
SKIN: Warm and dry, skin intact.
MUSCULOSKELETAL: No edema, well perfused.
Course
Orders/Labs/Results
Orders:
Orders
11/20/24 12:16
Straight cath- Treatment ONCE
11/20/24 12:23
Complete Blood Count/With Diff Urgent
Comprehensive Metabolic Panel Urgent
11/20/24 13:12
EKG [Electrocardiogram (*1)] Urgent
Reason for Study: Fatigue / Weakness
Lactic Acid Urgent
Chest [CR Chest - 2 Views ] Urgent
Comment:
Reason For Exam: leukocystosis
11/20/24 13:13
EKG- Treatment ONCE
11/20/24 13:14
Bladder Scan- Treatment ONCE
0.9% Sodium Chloride 1000 ml [Nss] 1,000 ml IV BOLUS
11/20/24 13:48
Urinalysis Reflex To Culture Urgent
Date Specimen was Collected: 11/20/24
Time Specimen was Collected: 13:17
Urine Microscopic Reflex Cult Urgent
Urine Culture Urgent
LINN Source: U
Specimen Description:
Date Specimen was Collected: 11/20/24
Time Specimen was Collected: 13:17
11/20/24 14:12
0.9% Sodium Chloride 1000 ml [Nss] 1,000 ml IV BOLUS
11/20/24 14:13
Acetaminophen 1000MG/100Ml [Ofirmev] 1,000 mg in 100 ml IV ONCE
Acetaminophen IV Indication:: No AR & No Enteral Access
11/20/24 14:15
Blood Culture Q30M
LINN Source: Blood/Venous
Specimen Description:
11/20/24 14:45
Blood Culture Q30M
LINN Source: Blood/Venous
Specimen Description:
11/20/24 14:47
CefTRIAXone [Rocephin] 2,000 mg IV NOW STA
Abnormal Lab Results
11/20/24 11/20/24
12:23 13:48
WBC 25.5 H 10^3/uL
(4.8-10.8)
RBC 3.94 L 10^6/uL
(4.70-6.10)
Hgb 12.1 L g/dL
(13.0-18.0)
Hct 36.3 L %
(39.0-52.0)
Abs Immat Gran (auto) 0.3 H 10^3/uL
(0-0.05)
Absolute Neuts (auto) 22.6 H 10^3/uL
(1.4-6.5)
Absolute Monos (auto) 0.9 H 10^3/uL
(0.1-0.6)
Immature Gran % 1.1 H %
(0-0.5)
Neutrophils % 88.6 H %
(42.2-75.2)
Lymphocytes % 4.7 L %
(20.5-51.1)
Sodium 129 L mmol/L
(135-145)
Carbon Dioxide 19 L mmol/L
(22-30)
BUN 26 H mg/dl
(9-20)
Creatinine 3.3 H mg/dL
(0.7-1.3)
Glucose 126 H mg/dl
(70-99)
Ur Occult Blood Reflex 4+ A
(Negative)
Leukocyte Esterase Rfl 3+ A
(Negative)
Urine WBC (Reflex) >100 A /HPF
(0-5)
Urine Albumin (Reflex) 3+ A
(Neg - Trace)
11/20/24 12:23
11/20/24 12:23
Vital Signs
Initial and Last Documented VS:
Initial Vital Signs
Temp Pulse Resp BP Pulse Ox
98.4 F 91 16 101/51 98
11/20/24 12:13 11/20/24 12:13 11/20/24 12:13 11/20/24 12:13 11/20/24 12:13
Last Documented Vital Signs
Temp Pulse Resp BP Pulse Ox
102.9 F H 85 23 93/39 96
11/20/24 14:11 11/20/24 14:11 11/20/24 14:11 11/20/24 14:11 11/20/24 14:11
MDM/Problems Addressed
MDM/Problems Addressed:
68-year-old male presenting to the emergency department today after being found weak and tired this morning at his intermediate. On arrival vital signs are normal patient no obvious distress no specific areas of discomfort on examination white count
is 25.5 patient does not have a significant temperature by mouth otherwise creatinine is significantly elevated from baseline at 3.3 with BUN of 26. Patient's temperature elevating while here to 102.9 there is nonspecific concern of sepsis rather
than just dehydration. He was started on ceftriaxone blood cultures were sent. Urinalysis with greater than 100 white blood cells. Plan to start IV antibiotics and admit for further treatment and monitoring.
*Pulse Oximetry
SaO2: 98
Oxygen Mode of Delivery: Room air
Patient hypoxic: no (96)
*Critical Care Note
Total Time (30-74mins, 75-104mins- exclusive of procedures): Not Applicable
ED Attending Note
-
Portions of this chart may have been created with voice recognition software.� Occasional wrong word or��sound alike� substitutions may have occurred due to the inherent limitations of voice recognition software.
Discharge Plan
Departure
Patient Disposition: Admit
Date of Disposition: 11/20/24
Time of Disposition: 14:51
Admit to: IMU
Admit to doctor: Tom
Presentation/result/management discussed w/ accepting MD/DO: Hospitalist
Patient with high blood pressure during this ER visit?: No
Condition: Good
Covid-19: Not Applicable
Discharge Problem:
Acute UTI
Prescriptions:
No Action
loperamide 2 MG capsule
2 mg PO Q4H PRN (Reason: loose stool)
famotidine [Acid Controller] 20 MG tablet
20 mg PO BID
magnesium hydroxide 30 ML suspension
30 ml PO Q12H PRN (Reason: constipation)
tamsulosin 0.4 MG capsule
0.4 mg PO HS
mirtazapine 30 MG tablet
30 mg PO HS
lisinopril 5 MG tablet
5 mg PO DAILY
buspirone 15 MG tablet
15 mg PO BID
sodium chloride 5 % drops
1 drp RIGHT EYE TID
ketoconazole 2 % shampoo
1 applic TOPICAL MOTH
dextromethorphan-guaifenesin [Chest Congestion Relief DM] 10-100 mg/5 mL Syrup
10 ml PO Q6H PRN (Reason: cough/congestion)
zinc oxide 20 % Ointment
1 applic TOPICAL PRN PRN (Reason: prevent skin breakdown)
Rx Instructions:
apply to chela area
sodium chloride [Stacey 128] 5 % ointment
1 applic RIGHT EYE BID
levothyroxine 50 mcg tablet
50 mcg PO DAILY
Debrox 6.5 % Drops
4 drp EACH EAR MONTHLY
Rx Instructions:
Instill 4 drps in both ears at bedtime on the 1st day of each month
metoprolol succinate 25 mg tablet extended release 24 hr
25 mg PO DAILY
ibuprofen 600 mg Tablet
600 mg PO Q6H PRN (Reason: dental pain)
olopatadine 0.2 % Drops
1 drp BOTH EYES DAILY PRN (Reason: allergic symptoms/itching)
Desitin Daily Defense 13 % Cream
1 applic TOPICAL PRN PRN (Reason: rash)
Rx Instructions:
apply to groin/buttocks
Nuedexta 20-10 mg capsule
1 cap PO DAILY
apixaban 5 mg Tablet
5 mg PO BID
acetaminophen 325 mg Tablet
650 mg PO Q4H PRN (Reason: pain, headache, temp>100.4)
erythromycin 5 mg/gram (0.5 %) ointment
1 applic BOTH EYES HS
sodium chloride [Stacey 128] 5 % Ointment
RIGHT EYE 2XD
bisacodyl 10 mg Suppository
10 mg AR [id number] PRN (Reason: constipation) 30 Days Qty: 12 0RF
Rx Instructions:
If other measures fail
amoxicillin-pot clavulanate 875-125 mg tablet
1 tab PO Q12H 4 Days Qty: 8 0RF
docusate sodium 50 mg/5 mL liquid
100 mg PO BID PRN (Reason: Constipation) Qty: 0 0RF
sennosides [senna] 8.6 mg Tablet
17.2 mg PO HS PRN (Reason: Constipation) Qty: 0 0RF
polyethylene glycol 3350 17 gram/dose powder
17 g PO DAILY PRN (Reason: Constipation) Qty: 0 0RF
Interventions
Interventions:
*Risk Screen - Suicide Last Done: 11/20/24 12:13
*General Assessment Last Done: 11/20/24 14:11
*Neglect/Abuse Screening Last Done: 11/20/24 12:13
*ED- Fall Risk Assessment Last Done: 11/20/24 14:11
*ED COVID-19 Vaccine History Last Done: 11/20/24 14:11
ED- Cardiac Assessment Last Done: 11/20/24 14:11
ED- Neurological Assessment Last Done: 11/20/24 14:11
ED- Pulmonary Assessment Last Done: 11/20/24 14:11
Discharge Date and Time
Print Language: GERMAN
[2024-11-20 13:39] LABS: Nucleated Red Blood Cells % 0 % (-)
[2024-11-20] MEDS: NSS 1000 IV ×3 (14:09→18:22)
[2024-11-20] MEDS: OFIRMEV 100 IV (14:19)
[2024-11-20 14:43] LABS: Urine Character Cloudy (Clear); Urine White Cell >100 /HPF (0-5)
--- NOTE | 2024-11-20 15:00 | HPS.HSE ---
Addendum entered and electronically signed by Lisa Santos MD 11/20/24 19:21:
This is an addendum to H&P written by Carla Francis on 11/20/2024. �Patient seen and examined Judie with [employer].
68-year-old male past medical history of intellectual disability, pseudobulbar affect, tardive dyskinesia, A-fib on Eliquis, B12 deficiency, hypertension, GERD, constipation, history of urinary retention, BPH status post TURP, hypothyroidism,
bipolar disorder/anxiety/depression, presenting with lethargy.
Vital�signs show temperature 102.9.
Labs show leukocytosis. �Lactic acid�3.1.
Creatinine 3.3. �Urinalysis consistent with UTI.
Patient with sepsis�secondary to urinary tract infection. �Check urine culture, blood cultures. �IV fluids, ceftriaxone. �FERNANDO secondary to sepsis. �Check CT abdomen pelvis to look for obstructive uropathy. �Hold lisinopril. �Hold Flomax. �Bladder
scan protocol.
Levophed started later.�
Original Note:
Family Physician
-
Family Physician:
Chief Complaint
-
Weakness, pallor, difficulty participating in physical therapy
History of Present Illness
68-year-old male from [facility] who was noted to be lethargic weak and tired more than usual. He has history of dementia and is nonverbal at baseline. He was noted to be febrile on admission 102.9 F and hypotensive with blood pressure 93/39.
Labs revealed UTI, hyponatremia and FERNANDO. He does have history of urinary retention, BPH with TURP in 2019. Patient's sister visited him today before his physical therapy session noted that he was pale in color more weak than usual not able to
participate in his physical therapy. She noticed this past summer he needed to be holding onto her or a shopping cart when walking so she started physical therapy at the [facility] he lives at [facility] since 2020. She denies any recent
vomiting, diarrhea, diaphoresis, rash, cough, shortness of breath.
He past medical history chronic nonverbal but does say 1 word commands/mental retardation/autism since age 3/dementia,/encephalopathy, pseudobulbar affect, tardive dyskinesia, A-fib on Eliquis, vitamin B12 deficiency, esophageal dilation 2009,
aspiration pneumonia, ambulatory dysfunction, HTN, GERD, constipation, BPH status post TURP 2019, urinary retention, hypothyroidism, bipolar disorder/anxiety/depression
Medical History
Past Medical History
Past Medical History: Reports Other
Additional Past Medical History:
chronic nonverbal but does say 1 word commands/intellectual disability/autism since age 3
dementia/encephalopathy
pseudobulbar affect
tardive dyskinesia
A-fib on Eliquis
vitamin B12 deficiency
esophageal dilation 2009,
aspiration pneumo
Chronic ambulatory dysfunction
HTN
GERD
Constipation
BPH status post TURP 2019
Urinary retention
Hypothyroidism
Bipolar disorder/anxiety/depression
Past Surgical History: Reports Other
Additional Past Surgical History:
TURP 2020
Social History
Tobacco: Non-smoker
Alcohol: None
Drug: None
Personal: Single
Living: Other (intermediate [facility])
Employment: Disabled
Family History
Family History: Not pertinent
Allergies / Home Medications
Allergies reflects when Allergies were last updated in [employer].
Home Medications with original date entered in [employer]
Allergy/Medication List:
Allergies
Allergy/AdvReac Type Severity Reaction Status Date / Time
benztropine Allergy Unknown Verified 11/20/24 12:13
risperidone (From Risperdal) Allergy Unknown Verified 11/20/24 12:13
Home Medications
buspirone 15 mg tablet 15 mg PO BID Mental Health/Anxiety 07/17/21
famotidine 20 mg tablet (Acid Controller) 20 mg PO BID Gastrointestinal Issue 07/17/21
lisinopril 5 mg tablet 5 mg PO DAILY Blood Pressure 07/17/21
loperamide 2 mg capsule 2 mg PO Q4HPRN PRN loose stool 07/17/21
magnesium hydroxide 400 mg/5 mL oral suspension 30 ml PO [id number] PRN constipation 07/17/21
mirtazapine 30 mg tablet 30 mg PO HS Mental Health/Anxiety 07/17/21
tamsulosin 0.4 mg capsule 0.4 mg PO BID Urinary Issue 07/17/21
apixaban 5 mg tablet 5 mg PO BID Blood Clot Prevention/Tx 04/29/23
carbamide peroxide 6.5 % ear drops (Debrox) 4 drp EACH EAR MONTHLY ear problem 04/29/23
dextromethorphan 20 mg-quinidine 10 mg capsule (Nuedexta) 1 cap PO DAILY Congestion 04/29/23
dextromethorphan-guaifenesin 10 mg-100 mg/5 mL oral syrup (Chest Congestion Relief DM) 10 ml PO Q6HPRN PRN cough/congestion 04/29/23
ketoconazole 2 % shampoo 1 applic topical MOTH scalp problem 04/29/23
metoprolol succinate 25 mg tablet,extended release 24 hr 25 mg PO DAILY Heart Failure 04/29/23
olopatadine 0.2 % eye drops 1 drp BOTH EYES DAILYPRN PRN allergic symptoms/itching 04/29/23
sodium chloride 5 % eye ointment (Stacey 128) 1 applic RIGHT EYE BID Eye Condition 04/29/23
zinc oxide 13 % topical cream (Desitin Daily Defense) 1 applic topical DAILYPRN PRN apply to groin/buttocks 04/29/23
acetaminophen 325 mg tablet 650 mg PO Q4HPRN PRN MILD pain, headache, temp>100.4 07/07/24
erythromycin 5 mg/gram (0.5 %) eye ointment 1 applic BOTH EYES HS 07/07/24
bisacodyl 10 mg rectal suppository 10 mg MT DAILYPRN PRN IF NO BM BY 4TH DAY 11/20/24
docusate sodium 50 mg/5 mL oral liquid 100 mg PO BIDPRN PRN IF NO BM BY 2ND DAY 11/20/24
levothyroxine 75 mcg tablet (Synthroid) 75 mcg PO DAILY 11/20/24
neomycin-bacitracn Zn-polymyxn 3.5 mg-400 unit-5,000 unit top oint pkt (Triple Antibiotic) 1 applic topical BIDPRN PRN RASH 11/20/24
neomycin-bacitracn Zn-polymyxn 3.5 mg-400 unit-5,000 unit top oint pkt (Triple Antibiotic) 1 applic topical QIDPRN PRN SCRAPES,ABRASIONS 11/20/24
phenyleph-shark liver [id number] 0.25 %-3 %-12 % rectal cream (Hemorrhoidal) 1 applic MT Q4HPRN PRN HEMORRHOIDAL 11/20/24
polyethylene glycol 3350 17 gram/dose oral powder 17 g PO DAILY Constipation 11/20/24
sennosides 8.6 mg tablet (senna) 17.2 mg PO HSPRN PRN IF NO BM BY 3RD DAY 11/20/24
triamcinolone acetonide 0.1 % topical ointment 1 applic topical BIDPRN PRN RASH 11/20/24
Review of Systems
-
History Source: Family (Sister at bedside legal guardian)
A 12 point ROS was completed and negative except as noted: Yes
Constitutional: Reports Fever, Fatigue and Chills
EENT: Denies Runny Nose
Respiratory: Denies Cough or Trouble Breathing
Cardiac: Denies Diaphoresis
Abdomen/GI: Denies Nausea, Vomiting or Diarrhea
: Denies Incontinence
Musculoskeletal: Denies Joint Swelling
Skin: Denies Itching or Rash
Neurological: Reports Weakness (Generalized)
Endocrine: Reports No Symptoms
Hematologic/Lymphatic: Reports No Symptoms
Psych: Reports Calm
Physical Exam
Vital Signs
Vital Signs
Temp Pulse Resp BP Pulse Ox
102.9 F H 85 23 93/39 96
11/20/24 14:11 11/20/24 14:11 11/20/24 14:11 11/20/24 14:11 11/20/24 14:11
Physical Exam
General: Fever, Chills and Other (Generalized weakness is sleeping on exam occasionally opens his eyes)
HEENT: NormoCephalic, Anicteric, [place] Conjunctivae, No Ptosis and Other (Dry oral mucosa)
Respiratory: Clear; No Wheezes, Rales or Rhonchi
Cardiac: S1/S2 and Regular Rhythm; No Murmur, Rub, Gallop or Peripheral Edema
Breast: Deferred by me
GI: Soft, Non Tender, Non Distended and Normal Bowel Sounds
Genito-urinary: Deferred by me
Musculoskeletal: No Clubbing, No Cyanosis and No Edema
Skin: Warm and Dry; No Rash or Jaundice
Neuro: Other (Patient is sleeping does occasionally open both eyes sister states he is able to say 1 word statements such as soda, juice, food items); No Facial Droop or Tremors
Psych: Calm
Laboratory Results
-
11/20/24 12:23
11/20/24 12:23
Laboratory Results
Total Bilirubin 1.2 mg/dl (0.2-1.3) 11/20/24 12:23
AST 24 U/L (17-59) 11/20/24 12:23
ALT 16 U/L (0-50) 11/20/24 12:23
Alkaline Phosphatase 79 U/L (38-126) 11/20/24 12:23
Impression/Plan
-
Impression/plan:
Admit to IMU
#Septic shock secondary to UTI
BP 93/39, HR 85, 102.9F
IV NSS 2 L given in ER continue IV NSS 100 cc/h
-IV Rocephin 2000 mg now, 1 g every 24 hours
-Tylenol as needed fever
- Follow urine culture
- Blood cultures x 2, lactic acid
- Hold Flomax 0.4 mg twice daily
#Hypotension due to septic shock from UTI/HTN�benign
Hold lisinopril 5 mg daily, metoprolol succinate 25 mg daily
- Hold Flomax 0.4 mg twice daily
#FERNANDO in setting of septic shock/UTI
#History of urinary retention
#BPH status post TURP 2019
Creat 3.3 prior baseline 0.05 Jul 2024
- Renal bladder ultrasound
-Bladder scan protocol
-- Hold Flomax 0.4 mg twice daily due to hypotension, hold lisinopril due to FERNANDO
Follow CMP
#Acute hyponatremia likely hypovolemic
NA 129
-IV NSS 2 L given in ER
- Follow BMP, check TSH and free T4 reflex, urine NA, urine Osmo, serum Osmo
# Intellectual disability /autism since age 3
Chronic nonverbal since age 3 except will say 1 word at a time asking for things
Pseudobulbar affect/tardive dyskinesia
#Paroxysmal A-fib
Patient on Eliquis
#Hypothyroidism
Check TSH with free T4 reflex
-Continue levothyroxine 75 mcg p.o. daily
#Bipolar disorder/anxiety/depression
-Continue BuSpar 15 mg p.o. twice daily, mirtazapine 30 mg at bedtime
#GERD
History of esophageal dilation 2009
Continue famotidine 20 mg twice daily
#History of constipation
Continue docusate sodium 100 mg twice daily as needed if no bowel movement by secondary
Other PMH:
vitamin B12 deficiency
esophageal dilation 2009,
aspiration pneumo
DVT prophylaxis
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
Limited DNR okay for intubation but no CPR Sister who is legal guardian wants to speak with her siblings first before changing
[2024-11-20 16:19] LABS: Magnesium 2.0 mg/dl (1.6-2.3)
[2024-11-20] MEDS: ROCEPHIN 2000 MG IV (17:04)
[2024-11-20] MEDS: STERILE WATER FOR INJECTION 20 ML IV (17:04)
--- NOTE | 2024-11-20 17:22 | EDRN ---
this RN called the receiving unit and this RN gave verbal report to the receiving IMU nurse Olena
[2024-11-20] MEDS: TYLENOL/FEVERALL 650 MG RECTAL (18:22)
--- NOTE | 2024-11-20 18:34 | W.PN.UPDATE ---
Update Note
Progress Note Update
#Worsening hypotension/sepsis/fever
Notified by nurse on floor patient's blood pressure 82/39 heart rate 99 temp 104F
- Patient given Tylenol
- Was given 2 L IV NSS bolus in ER and continued IV NSS 100 cc an hour
- Will start IV Levophed drip
[2024-11-20] MEDS: LEVOPHED 250 IV (18:38)
--- NOTE | 2024-11-20 18:42 | PTCARENOTE ---
Received pt from ED, pulled over in bed. Follows simple commands. Speech is garbled, 1 word answers at times. Drowsy. OLGUIN. Rectal temp 104. HR 95, BP 82/53, 96% on RA. Ice Packs applied. 650mg rectal Tylenol given. NS @ 100ml/hr. Carla Arbyrd EMBEDDED SOFTWARE ENGINEER
notified. Levophed ordered, started @ 2mcg/min. Will monitor closely. Bed alarm on.
--- NOTE | 2024-11-20 19:20 | PTCARENOTE ---
Assumed care of patient from dayshift RN. sister at bedside. pt sleeping, arousable verbal stimuli. Pt received on 4mcg/min of levo for map goal >65. Pt current map 52. Pt increased to 6mcg/min of levo.
--- NOTE | 2024-11-20 19:35 | PTCARENOTE ---
Pt map remains below map goal of 65. Map @ 52. levo increased to 8mcg/min.
--- NOTE | 2024-11-20 19:50 | PTCARENOTE ---
Addendum entered by Chucky Lopez RN 11/20/24 21:21:
this RN gave verbal report to Lindsey SHOOK, Pt tsf to ICU.
Original Note:
Pts map still under goal with levo at 8mcg/min. BP 85/44(57). CLYDE Francis made aware. order received to tsf pt to ICU.
--- NOTE | 2024-11-20 19:50 | W.PN.UPDATE ---
Update Note
Progress Note Update
Patient on 8 mcg of Levophed in IMU MAP still 61 currently needs IV replacement by IV team
Will upgrade to ICU
- Once blood pressure more stable with MAP greater than [address] abdomen pelvis rule out obstructive process for FERNANDO
[2024-11-20] MEDS: ELIQUIS PO (23:02)
[2024-11-20] MEDS: BUSPAR PO (23:02)
--- NOTE | 2024-11-20 23:59 | W.PN.UPDATE ---
Update Note
Progress Note Update
Patient blood pressure stable is pending CT abdomen pelvis per nurse Lindsey
ICU ASSET CARD CLERK to follow CT results and consult appropriate physician
[2024-11-21] VITALS (77 sets, daily range): BP systolic 75–145; BP diastolic 37–101; PULSE 78; O2SAT 96–97; BMI 26.8
--- NOTE | 2024-11-21 | PTCARENOTE ---
Patient reassessed, patient more alert, saying, 'hi'. levophed gtt remains at 14 mcg/min. afebrile. awaiting CT scan
[2024-11-21] MEDS: LEVOPHED 250 IV ×4 (00:31→11:27)
--- NOTE | 2024-11-21 00:50 | PTCARENOTE ---
Patient taken to CT scan
[2024-11-21] MEDS: TYLENOL/FEVERALL 650 MG RECTAL (02:10)
[2024-11-21] MEDS: ERYTHROMYCIN 0.5% OPHTHALMIC OINTMENT BOTH EYES (03:43)
[2024-11-21] MEDS: NSS 1000 IV ×2 (04:08→22:36)
[2024-11-21 04:59] LABS: ALT (SGPT) 13 U/L (0-50); AST (SGOT) 18 U/L (17-59); Albumin 2.8 g/dl (3.5-5.0); Alkaline Phosphatase 70 U/L (38-126); Blood Urea Nitrogen 32 mg/dl (9-20); Calcium 8.6 mg/dl (8.4-10.2); Carbon Dioxide 17 mmol/L (22-30); Chloride 103 mmol/L (98-107); Estimated Creatinine Clearance 16 ml/min; Glucose 141 mg/dl (70-99); Potassium 3.9 mmol/L (3.5-5.1); Sodium 129 mmol/L (135-145); Total Protein 5.5 g/dl (6.3-8.2); eGFR 19.69
[2024-11-21 05:06] LABS: Hematocrit 29.3 % (39.0-52.0); Hemoglobin 10.1 g/dL (13.0-18.0); Mean Corp Hgb Conc. 34.5 g/dL (33.0-37.0); Mean Corpuscular Volume 89.9 fL (80.0-94.0); Nucleated Red Blood Cells % 0 % (-); Platelet Count 215 10^3/uL (130-400); Red Cell Dist. Width 12.7 % (11.5-14.5)
[2024-11-21] MEDS: SODIUM BICARBONATE 1075 MEQ IV (05:50)
--- NOTE | 2024-11-21 06:55 | CON.INTV ---
Consultation
Consultation Request
Date/Time Consultation Requested: 11/21/2024514
Date/Time Consultation Performed: 11/21/2024639
Requesting Provider: CLYDE Ray
Performing Provider: Dr. Dickinson
Reason for Consultation: Septic shock
Medical History
-
Chief Complaint: Altered mental status + weakness
History of Present Illness:
68-year-old male with a past medical history of intellectual disability with suspected autism, BPH s/p TURP, anxiety, history of aspiration pneumonia, hypertension, hypothyroidism, bipolar disorder, history of atrial flutter, history of hemorrhoids
and bilateral blepharitis who presents with altered mental status and generalized weakness. He was febrile and hypotensive in the ER, with initial BP 101/51 with heart rate 91 and SpO2 98% on room air. Temperature initially 98.4 �F which increased
to 102.9 �F via rectal temperature. Labs pertinent for elevated WBC at 25.5, Hb 12.1, sodium 129, creatinine 3.3, lactate 3.1, TSH 1.07, and urinalysis positive with +3 leukocyte esterase and >100 urine WBC. Blood and urine cultures collected.
CXR showed bibasilar parenchymal opacities with left perihilar interstitial thickening suggestive of pneumonia. CT abdomen/pelvis showed bilateral perinephric stranding with mild�moderate bilateral hydroureter without overt obstructive uropathy,
and a focal urinary bladder wall thickening suspicious for neoplasm. This hyperattenuating lesion is new compared to prior CT A/P from April 2023. In the ER he was given 2 L of NS 0.9% + Ofirmev, and he was admitted to IMU. He received another
2L of IVF however remained hypotensive, prompting levophed to be started. Patient then transferred to the ICU and [employer] services consulted for additional management/recommendations.
Pt was seen and evaluated this AM. Currently on levophed at 14mcg/min, HR 63, BP 115/58, and saturating 95%. Pt's sister, Emilie, at bedside - at baseline the pt is alert and speaks with one word sentences to communicate. He has been like this
since he was born. He usually can make his needs known. Sister believes he has autism. He has been acting less interactive for about 1 day, and had a flat affect which is not like him.
PMHx: BPH s/p TURP, anxiety, history of aspiration pneumonia, cataracts, dementia, GERD, hypertension, hypothyroidism, tardive dyskinesia, bipolar disorder, pseudobulbar affect, history of atrial flutter, history of hemorrhoids, bilateral blepharitis
PSHx: TURP ([facility] � 2019), button vaporization TURP for bladder neck contracture (06/2021), tooth extraction, esophageal dilation (2009), bilateral cataract removal
Past Medical History
Past Medical History: Other (Above as per HPI)
Past Surgical History: Other (Above as per HPI)
Social History
Tobacco: Non-smoker
Alcohol: None
Drug: None
Family History
Family History: Reviewed & Not Pertinent
Allergies / Home Medications
Allergies
Allergy/AdvReac Type Severity Reaction Status Date / Time
benztropine Allergy Unknown Verified 11/20/24 12:13
risperidone (From Risperdal) Allergy Unknown Verified 11/20/24 12:13
Home Medications
�Medication �Instructions �Recorded �Confirmed �Last Taken �Type
buspirone 15 mg tablet 15 mg PO BID Mental Health/Anxiety 07/17/21 11/20/24 07/21/21 07:00 History
famotidine 20 mg tablet (Acid 20 mg PO BID Gastrointestinal Issue 07/17/21 11/20/24 Unknown History
Controller)
lisinopril 5 mg tablet 5 mg PO DAILY Blood Pressure 07/17/21 11/20/24 07/20/21 20:00 History
loperamide 2 mg capsule 2 mg PO Q4HPRN PRN loose stool 07/17/21 11/20/24 Unknown History
magnesium hydroxide 400 mg/5 mL 30 ml PO [id number] PRN constipation 07/17/21 11/20/24 Unknown History
oral suspension
mirtazapine 30 mg tablet 30 mg PO HS Mental Health/Anxiety 07/17/21 11/20/24 07/20/21 20:00 History
tamsulosin 0.4 mg capsule 0.4 mg PO BID Urinary Issue 07/17/21 11/20/24 07/21/21 07:00 History
apixaban 5 mg tablet 5 mg PO BID Blood Clot 04/29/23 11/20/24 Unknown History
Prevention/Tx
carbamide peroxide 6.5 % ear drops 4 drp EACH EAR MONTHLY ear problem 04/29/23 11/20/24 Unknown History
(Debrox)
dextromethorphan 20 mg-quinidine 1 cap PO DAILY Congestion 04/29/23 11/20/24 Unknown History
10 mg capsule (Nuedexta)
dextromethorphan-guaifenesin 10 10 ml PO Q6HPRN PRN 04/29/23 11/20/24 Unknown History
mg-100 mg/5 mL oral syrup (Chest cough/congestion
Congestion Relief DM)
ketoconazole 2 % shampoo 1 applic topical MOTH scalp problem 04/29/23 11/20/24 Unknown History
metoprolol succinate 25 mg 25 mg PO DAILY Heart Failure 04/29/23 11/20/24 Unknown History
tablet,extended release 24 hr
olopatadine 0.2 % eye drops 1 drp BOTH EYES DAILYPRN PRN 04/29/23 11/20/24 Unknown History
allergic symptoms/itching
sodium chloride 5 % eye ointment 1 applic RIGHT EYE BID Eye 04/29/23 11/20/24 Unknown History
(Stacey 128) Condition
zinc oxide 13 % topical cream 1 applic topical DAILYPRN PRN 04/29/23 11/20/24 Unknown History
(Desitin Daily Defense) apply to groin/buttocks
acetaminophen 325 mg tablet 650 mg PO Q4HPRN PRN MILD pain, 07/07/24 11/20/24 Unknown History
headache, temp>100.4
erythromycin 5 mg/gram (0.5 %) eye 1 applic BOTH EYES HS 07/07/24 11/20/24 Unknown History
ointment
bisacodyl 10 mg rectal suppository 10 mg FL DAILYPRN PRN IF NO BM BY 11/20/24 11/20/24 Unknown History
4TH DAY
docusate sodium 50 mg/5 mL oral 100 mg PO BIDPRN PRN IF NO BM BY 11/20/24 11/20/24 Unknown History
liquid 2ND DAY
levothyroxine 75 mcg tablet 75 mcg PO DAILY 11/20/24 11/20/24 Unknown History
(Synthroid)
neomycin-bacitracn Zn-polymyxn 3.5 1 applic topical BIDPRN PRN RASH 11/20/24 11/20/24 Unknown History
mg-400 unit-5,000 unit top oint
pkt (Triple Antibiotic)
neomycin-bacitracn Zn-polymyxn 3.5 1 applic topical QIDPRN PRN 11/20/24 11/20/24 Unknown History
mg-400 unit-5,000 unit top oint SCRAPES,ABRASIONS
pkt (Triple Antibiotic)
phenyleph-shark liver 1 applic FL Q4HPRN PRN HEMORRHOIDAL 11/20/24 11/20/24 Unknown History
[id number] 0.25 %-3 %-12 %
rectal cream (Hemorrhoidal)
polyethylene glycol 3350 17 17 g PO DAILY Constipation 11/20/24 11/20/24 Unknown History
gram/dose oral powder
sennosides 8.6 mg tablet (senna) 17.2 mg PO HSPRN PRN IF NO BM BY 11/20/24 11/20/24 Unknown History
3RD DAY
triamcinolone acetonide 0.1 % 1 applic topical BIDPRN PRN RASH 11/20/24 11/20/24 Unknown History
topical ointment
Review of Systems
-
Unable to Obtain full review of systems at this time due to: Acuity
Vitals / Labs / Diagnostic Testing
Vital Signs
Temp Pulse Resp BP Pulse Ox
102.2 F H 96 22 97/52 86
11/21/24 05:18 11/21/24 05:30 11/21/24 05:30 11/21/24 05:30 11/21/24 05:30
Lab Data
11/21/24 04:15
11/21/24 04:15
Diagnostic Testing:
Physical Exam
-
HEENT: Normocephalic and Anicteric
Cardiovascular: S1/S2 and Peripheral Edema (negative)
Respiratory: Wheeze (negative), Rales (Bibasilar), Rhonchi (negative) and Non-Labored Respirations
GI: Soft, Non Distended, Non Tender and Normal Bowel Sounds
Neurology: Awake, Tremors (negative) and Other (lethargic)
Skin: Warm and Dry
General: Respiratory Distress (negative), Comfortable, Chills (negative) and Sweats (negative)
Assessment
-
Assessment: 68-year-old male with a past medical history of intellectual disability with suspected autism, BPH s/p TURP, anxiety, history of aspiration pneumonia, hypertension, hypothyroidism, bipolar disorder, history of atrial flutter, history of
hemorrhoids and bilateral blepharitis who presents with altered mental status and generalized weakness. He was febrile and hypotensive in the ER, with initial BP 101/51 with heart rate 91 and SpO2 98% on room air. Temperature initially 98.4 �F
which increased to 102.9 �F via rectal temperature. Labs pertinent for elevated WBC at 25.5, Hb 12.1, sodium 129, creatinine 3.3, lactate 3.1, TSH 1.07, and urinalysis positive with +3 leukocyte esterase and >100 urine WBC. Blood and urine
cultures collected. CXR showed bibasilar parenchymal opacities with left perihilar interstitial thickening suggestive of pneumonia. CT abdomen/pelvis showed bilateral perinephric stranding with mild�moderate bilateral hydroureter without overt
obstructive uropathy, and a focal urinary bladder wall thickening suspicious for neoplasm. This hyperattenuating lesion is new compared to prior CT A/P from April 2023. In the ER he was given 2 L of NS 0.9% + Ofirmev, and he was admitted to
IMU. He received another 2L of IVF however remained hypotensive, prompting levophed to be started. Patient then transferred to the ICU and Color Finisher services consulted for additional management/recommendations.
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
bilateral blepharitis
Impression:
#Septic shock with source likely due to UTI
#Complicated UTI/pyelonephritis with mild�moderate bilateral hydroureter without overt obstructive uropathy
#Severe FERNANDO
#Lactic acidosis due to septic shock
#Focal urinary bladder wall thickening - differential includes neoplasm vs hemorrhage
#Hypotonic hyponatremia
#Chronic anemia
#Metabolic acidosis with preserved anion gap (due to FERNANDO + lactic acidosis)
#BPH s/p TURP (@ [facility] - 2019)
#Baseline intellectual disability
Plan:
- Continue with antibiotics and considering he is in septic shock and with blood cultures positive for GNR, would recommend broadening antibiotics from ceftriaxone to cefepime
- Follow-up blood culture species from 11/20; obtain the set of surveillance blood cultures later today
- Follow-up urine culture
- There is mild left perihilar interstitial thickening and bibasilar opacities however it appears similar to prior CXR from 07/07/2024, per my review
- If hemodynamics do not improve with Abx above, then would add IV vancomycin for MRSA coverage, at least while MRSA panel is pending
- Hold home antihypertensives for now
- Trend lactate until <2mmol/L
- Continue with vasopressors, titrating down as tolerated while keeping MAP >65
- Additional IV access is awaiting to be placed, and then if Levophed requirements continue to be at 15 mcg/min, then I will start vasopressin
- Replete calcium
- Consider administering supplemental albumin to maintain levels >3 g/dL
- If additional vasopressors are needed or if unable to wean down dose of pressors, then will start stress dose steroids
- Maintain SpO2 >90-94%; currently on room air saturating 96%
- Continue aspiration precautions; keep HOB >30-45�
- Trend sCr and UOP
- Avoid nephrotoxic agents and renally dose all meds/Abx
- Replete electrolytes with K>4, Mg>2; monitor for hyperkalemia
- Nephrology consulted
- On CT A/P from 11/21/2024, there is a hypoattenuating focal region along the left lateral wall measuring 4.6 x 2.5 cm, not seen previously. I will consult urology for consideration of cystoscopy (he follows with Dr. Shelby as an outpatient - last
visit 04/10/2024)
- Appears that last flexible cystoscopy was in July 2022 which does not mention any abnormal masses seen at that time; also no bladder neck contracture seen or BOJORQUEZ noted
- Maintain euglycemia with goal BG 140-180
- Trend H/H and transfuse if needed to keep Hb>7g/dL; keep plt>20k, unless there is concern for bleeding then keep plt>50k
- prn nebulized bronchodilators - not currently bronchospastic
- DVT ppx: Eliquis
Code status: DNR/DNI
Continue ICU level of care for this critically ill patient
Critical care statement: A total of 38 minutes of critical care time was provided for this patient today. This includes management of unstable vital signs, evaluation of the patient at bedside, reviewing the patient's pertinent medical records
including radiographs, microbiology, laboratory evaluations, and discussion with primary team, consultants, pharmacy, nutrition, physical therapy, case management, charge nurse, critical care nursing, and respiratory therapy.
Data:
CT abdomen/pelvis without contrast 11/21/2024:
Bilateral perinephric stranding with mild to moderate bilateral hydroureter without overt obstructive uropathy. Findings may reflect ascending urinary tract infection.
Focal urinary bladder wall thickening suspicious for neoplasm, new from prior. Recommend direct visualization.
--- NOTE | 2024-11-21 07:22 | W.PN.UPDATE ---
Update Note
Progress Note Update
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 May require follow up. Moderately distended bladder.
Will have RN bladder scan.
[2024-11-21] MEDS: BUSPAR PO (08:05)
[2024-11-21] MEDS: ELIQUIS PO (08:05)
[2024-11-21] MEDS: SYNTHROID PO (08:05)
--- NOTE | 2024-11-21 08:57 | CM ---
Patient seen at bedside with physician and sister in ICU room. Per Patient sister patient is verbal normally with limited vocabulary; asprin for pain. Patient lives in [facility] a retirement with approx 24 residents. Patient sister stated
that patient lived with his mother until approx 2110 and then she brought her mother and patient from [place] for care. Patient mother passed in 2014 and patient was admitted with Barc assistance in 2021 approx. Patient sister stated that patient
sleeps on a sofa and is learning to use a walker for ambulation outside of the retirement. Patient has [facility] at home. Per patient sister she has guardianship but does not have paperwork with her. CM to call [employer] and will attempt to clarify
patient prior functioning and obtain copy of paperwork. CM will continue to follow for discharge planning needs.
Plan; return to retirement with VN;[facility] vs SNF; IF SNF may need level 2 pending [facility] information
--- NOTE | 2024-11-21 08:58 | W.PN.HOSP.TC ---
Today's Communication/Plan
-
change rocephin to cefepime
cont IVF
consult renal
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
PT/OT/speech
Assessment / Plan
Assessment / Plan
pt is a 68 year old male
Septic shock with lactic acidosis secondary to UTI--gm neg bacilli bacteremia (final cultures pending)--CT scan with ascending UTI findings with possible bladder neoplasm--cont IVF with bicarb, cont pressor support, wean as able (levophed)--await
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
Essential HTN�Hold lisinopril 5 mg daily, metoprolol succinate 25 mg daily
FERNANDO in setting of septic shock/UTI/History of urinary retention/BPH status post TURP 2019--consult renal--creat 3.3 but baseline 0.7 in 06/2024- Renal bladder ultrasound--Bladder scan protocol-- hold lisinopril due to FERNANDO
Acute hyponatremia likely hypovolemic--sodium 129--await renal--cont IVF- Follow BMP, check TSH and free T4 reflex, urine NA, urine Osmo, serum Osmo
Intellectual disability/autism since age 3--Chronic nonverbal since age 3 except will say 1 word at a time asking for things--Pseudobulbar affect/tardive dyskinesia
Paroxysmal A-fib--Patient on Eliquis
Hypothyroidism--Check TSH with free T4 reflex--Continue levothyroxine 75 mcg p.o. daily
Bipolar disorder/anxiety/depression--Continue BuSpar 15 mg p.o. twice daily, mirtazapine 30 mg at bedtime
GERD--History of esophageal dilation 2009--Continue famotidine 20 mg twice daily
History of constipation--Continue docusate sodium 100 mg twice daily as needed if no bowel movement by secondary
vitamin B12 deficiency--cont supplement
esophageal dilation 2009--aspiration pneumo
DVT prophylaxis--Eliquis
code status--spoke with sister this AM--DNR/DNI
Total Critical Care Time 35 minutes. I was immediately available to the patient and staff. I personally examined, reviewed labs, diagnostic images/reports, interpretations, treatment plans, discussed patient care with other providers and family
or caregivers (if patient is unable to make decisions), entered orders as appropriate and documented the medical record.
Anticipated Discharge: > 48 hours
Subjective/Interval History
-
Date of Service: November 21, 2024
pt tells me he feels like sh
Objective Data
-
Labs:
Laboratory Results
11/21/24 11/21/24
04:15 05:16
WBC 20.2 H
Hgb 10.1 L
Hct 29.3 L
Plt Count 215 D
PT Pending
INR Pending
APTT Pending
Sodium 129 L
Potassium 3.9
Chloride 103
Carbon Dioxide 17 L
BUN 32 H
Creatinine 3.3 H
Glucose 141 H
Calcium 8.6
Total Bilirubin 0.5
AST 18
ALT 13
Alkaline Phosphatase 70
Vital Signs:
max temp for 24 hours
11/20/24
18:30
Temp 104 F H
Vital Signs
Temp Pulse Resp BP Pulse Ox
99.7 F 96 22 97/52 86
11/21/24 08:05 11/21/24 05:30 11/21/24 05:30 11/21/24 05:30 11/21/24 05:30
I&O
11/20/24 11/21/24 11/22/24
06:59 06:59 06:59
Intake Total 1372.5 / 1372.5
Output Total 400 / 400
Balance 972.5 / 972.5
Review of Systems
-
Unable to obtain full review of systems at this time due to: Acuity
Physical Exam
-
General: Well Developed, Well Nourished, No Apparent Distress and Other (diaphoretic/sweaty--cold and clammy)
HEENT: Normocephalic and Atraumatic; Negative Oxygen (snores and sats drop)
Respiratory: Clear to Auscultation; Negative Wheezes or Rhonchi
Cardiac: Regular Rhythm and S1/S2; Negative Murmur
GI: Soft, Nontender, Nondistended and Normal Bowel Sounds
Musculoskeletal: No Clubbing, No Cyanosis and No Edema
Skin: Negative Warm (cold and clammy)
Neuro: Nonfocal/Grossly Intact
Psych: Calm
--- NOTE | 2024-11-21 08:59 | W.CON.NEPH ---
Consultation
-
Date/Time Consultation Requested: 11/21/2024 8:50 AM
Date/Time Consultation Performed: 11/21/2024 8:50 AM
Requesting Provider: Dr. Arvizu
Performing Provider: Dr. Garcia
Reason for Consultation: Acute kidney injury
Medical History
-
Chief Complaint: Acute kidney injury
History of Present Illness:
The patient is a 68-year-old male with a past medical history of intellectual disability pseudobulbar affect tardive dyskinesia A-fib chronically anticoagulated with Eliquis and rate controlled with beta-fatmata, B12 deficiency hypertension on
metoprolol GERD on proton pump inhibitor therapy and history of urinary retention due to BPH status post TURP who presented with lethargy. On presentation to the hospital he had septic physiology with hypotension, lactic acidosis ,fever and acute
renal failure with a creatinine of 3.3. Nephrology was then consulted to see this patient for acute kidney injury in the setting of presumed urosepsis.
Past Medical History
chronic nonverbal but does say 1 word commands/intellectual disability/autism since age 3
dementia/encephalopathy
pseudobulbar affect
tardive dyskinesia
A-fib on Eliquis
vitamin B12 deficiency
esophageal dilation 2009,
aspiration pneumo
Chronic ambulatory dysfunction
HTN
GERD
Constipation
BPH status post TURP 2019
Urinary retention
Hypothyroidism
Bipolar disorder/anxiety/depression
Social History
Tobacco: Non-Smoker
Alcohol: None
Drug: None
Family History
Family History: Not Pertinent
Allergies / Home Medications
Allergy/AdvReac Type Severity Reaction Status Date / Time
benztropine Allergy Unknown Verified 11/20/24 12:13
risperidone (From Risperdal) Allergy Unknown Verified 11/20/24 12:13
�Medication �Instructions �Recorded �Confirmed �Type
buspirone 15 mg tablet 15 mg PO BID Mental Health/Anxiety 07/17/21 11/20/24 History
famotidine 20 mg tablet (Acid 20 mg PO BID Gastrointestinal Issue 07/17/21 11/20/24 History
Controller)
lisinopril 5 mg tablet 5 mg PO DAILY Blood Pressure 07/17/21 11/20/24 History
loperamide 2 mg capsule 2 mg PO Q4HPRN PRN loose stool 07/17/21 11/20/24 History
magnesium hydroxide 400 mg/5 mL 30 ml PO [id number] PRN constipation 07/17/21 11/20/24 History
oral suspension
mirtazapine 30 mg tablet 30 mg PO HS Mental Health/Anxiety 07/17/21 11/20/24 History
tamsulosin 0.4 mg capsule 0.4 mg PO BID Urinary Issue 07/17/21 11/20/24 History
apixaban 5 mg tablet 5 mg PO BID Blood Clot 04/29/23 11/20/24 History
Prevention/Tx
carbamide peroxide 6.5 % ear drops 4 drp EACH EAR MONTHLY ear problem 04/29/23 11/20/24 History
(Debrox)
dextromethorphan 20 mg-quinidine 1 cap PO DAILY Congestion 04/29/23 11/20/24 History
10 mg capsule (Nuedexta)
dextromethorphan-guaifenesin 10 10 ml PO Q6HPRN PRN 04/29/23 11/20/24 History
mg-100 mg/5 mL oral syrup (Chest cough/congestion
Congestion Relief DM)
ketoconazole 2 % shampoo 1 applic topical MOTH scalp problem 04/29/23 11/20/24 History
metoprolol succinate 25 mg 25 mg PO DAILY Heart Failure 04/29/23 11/20/24 History
tablet,extended release 24 hr
olopatadine 0.2 % eye drops 1 drp BOTH EYES DAILYPRN PRN 04/29/23 11/20/24 History
allergic symptoms/itching
sodium chloride 5 % eye ointment 1 applic RIGHT EYE BID Eye 04/29/23 11/20/24 History
(Stacey 128) Condition
zinc oxide 13 % topical cream 1 applic topical DAILYPRN PRN 04/29/23 11/20/24 History
(Desitin Daily Defense) apply to groin/buttocks
acetaminophen 325 mg tablet 650 mg PO Q4HPRN PRN MILD pain, 07/07/24 11/20/24 History
headache, temp>100.4
erythromycin 5 mg/gram (0.5 %) eye 1 applic BOTH EYES HS 07/07/24 11/20/24 History
ointment
bisacodyl 10 mg rectal suppository 10 mg AL DAILYPRN PRN IF NO BM BY 11/20/24 11/20/24 History
4TH DAY
docusate sodium 50 mg/5 mL oral 100 mg PO BIDPRN PRN IF NO BM BY 11/20/24 11/20/24 History
liquid 2ND DAY
levothyroxine 75 mcg tablet 75 mcg PO DAILY 11/20/24 11/20/24 History
(Synthroid)
neomycin-bacitracn Zn-polymyxn 3.5 1 applic topical BIDPRN PRN RASH 11/20/24 11/20/24 History
mg-400 unit-5,000 unit top oint
pkt (Triple Antibiotic)
neomycin-bacitracn Zn-polymyxn 3.5 1 applic topical QIDPRN PRN 11/20/24 11/20/24 History
mg-400 unit-5,000 unit top oint SCRAPES,ABRASIONS
pkt (Triple Antibiotic)
phenyleph-shark liver 1 applic AL Q4HPRN PRN HEMORRHOIDAL 11/20/24 11/20/24 History
yze-kwudyj-bls 0.25 %-3 %-12 %
rectal cream (Hemorrhoidal)
polyethylene glycol 3350 17 17 g PO DAILY Constipation 11/20/24 11/20/24 History
gram/dose oral powder
sennosides 8.6 mg tablet (senna) 17.2 mg PO HSPRN PRN IF NO BM BY 11/20/24 11/20/24 History
3RD DAY
triamcinolone acetonide 0.1 % 1 applic topical BIDPRN PRN RASH 11/20/24 11/20/24 History
topical ointment
Review of Systems
-
Unable to obtain full review of systems at this time due to: Dementia
History Source: Patient
All other systems: Negative unless noted
Physical Exam
Vital Signs
Vital Signs
Temp Pulse Resp BP Pulse Ox
99.7 F 96 22 97/52 86
11/21/24 08:05 11/21/24 05:30 11/21/24 05:30 11/21/24 05:30 11/21/24 05:30
Lab Results
11/21/24 04:15
11/21/24 04:15
WBC 20.2 10^3/uL (4.8-10.8) H 11/21/24 04:15
RBC 3.26 10^6/uL (4.70-6.10) L 11/21/24 04:15
Hgb 10.1 g/dL (13.0-18.0) L 11/21/24 04:15
Hct 29.3 % (39.0-52.0) L 11/21/24 04:15
Plt Count 215 10^3/uL (130-400) D 11/21/24 04:15
Sodium 129 mmol/L (135-145) L 11/21/24 04:15
Potassium 3.9 mmol/L (3.5-5.1) 11/21/24 04:15
Chloride 103 mmol/L (98-107) 11/21/24 04:15
Carbon Dioxide 17 mmol/L (22-30) L 11/21/24 04:15
BUN 32 mg/dl (9-20) H 11/21/24 04:15
Creatinine 3.3 mg/dL (0.7-1.3) H 11/21/24 04:15
eGFR 19.69 11/21/24 04:15
Glucose 141 mg/dl (70-99) H 11/21/24 04:15
Calcium 8.6 mg/dl (8.4-10.2) 11/21/24 04:15
Phosphorus 2.8 mg/dl (2.5-4.5) 11/20/24 12:23
Albumin 2.8 g/dl (3.5-5.0) L 11/21/24 04:15
Physical Exam
General: Nonverbal, Nontoxic , NAD
HEENT: PERRL, EOMI, Anicteric, Conjunctivae Clear, Ear/Nose Intact, Hearing Normal, Oropharynx Clear/Moist, Dentition Intact, Facial Symmetry, Neck Supple, Neck: Trachea Midline, No JVD and No Thyromegaly, no Bruits
Respiratory: Clear to auscultation bilaterally with normal lung excursion
Cardiac: S1/S2 and Regular Rate/Rhythm
Breast: Deferred by me
Abdomen: Soft, Nontender, Nondistended, Normal Bowel Sounds and No Hepatosplenomegaly
Rectal: Deferred by Provider
Genito-urinary: No Costovertebral Tenderness
Extremities: No Clubbing, No Cyanosis and No Edema
Skin: No Rash or open lesions
Neuro: Moves all 4 limbs independently, cranial nerves appear intact
Hematologic/Lymphatic: No Cervical Lymphadenopathy, No Submandibular Lymphadenopathy and No Supraclavicular Lymphadenopathy
Psych: Baseline intellectual disability nonverbal
Vascular: plus 1 pedal and radial pulses
Data Reviewed
-
Radiology: Image Personally Visualized and interpreted (No overt consolidation or effusion pattern consistent with congestive heart or PNA)
CT Scan: Report Reviewed by me (CT of the abdomen and pelvis: Notable for bilateral perinephric stranding with mild to moderate bilateral hydroureter without overt obstructive uropathy possible neoplasm in bladder)
Labs: Labs Reviewed by me (BMP CBC urinalysis)
Old Records: Reviewed (Reviewed old records in the medical record from 07/10/2024 creatinine 0.7)
Assessment/Plan
-
Impression:
Sepsis/gram-negative devi bacteremia suspected due to underlying UTI
Acute kidney injury
Nongap metabolic acidosis
Hyponatremia
Possible underlying bladder neoplasm and/or obstruction with perinephric stranding on CT
Paroxysmal atrial fibrillation
Intellectual disability
Hypothyroidism
Bipolar anxiety depression
GERD
Plan:
FERNANDO:
- Likely due to strong prerenal stimulus in setting of septic physiology with hemodynamic compromise
- Maintain alkaline IV fluids in setting of nongap metabolic acidosis and pressor support to keep MAP at 65 or greater
-Holding antihypertensives
- Strongly recommend Chen catheter placement for possible underlying obstructive component and will likely need urological follow-up for possible bladder mass noted on CT (but will defer to ), patient currently undergoing straight cath.
- No acute dialysis requirement
- Patient critically ill with acute renal failure and hemodynamic instability requiring pressor support in the setting of evolving urosepsis with associated gram-negative bacteremia
- Antibiotics to be renally dosed based on GFR less than 20cc/minute
Hyponatremia:
- Likely a function of elevated ADH in setting of hypotension due to underlying sepsis
- Plan will be to reestablish hemodynamic stability
Nongap metabolic acidosis:
- Will improve with fluid resuscitation
Patient is critically ill with acute renal failure in the setting of sepsis 35 minutes critical care time spent with patient
Total Time Spent with Patient (in minutes): 35
[2024-11-21] MEDS: STERILE WATER FOR INJECTION 10 ML IV ×3 (10:08→22:28)
[2024-11-21] MEDS: MAXIPIME 1000 MG IV (10:08)
[2024-11-21] MEDS: MURO 5% OPHTHALMIC OINTMENT 1 APPLIC RIGHT EYE ×2 (10:09→19:37)
[2024-11-21] MEDS: SODIUM BICARBONATE 1150 MEQ IV (10:09)
--- NOTE | 2024-11-21 11:05 | PTCARENOTE ---
Updated assessment, plan of cares and follow up critical care trends. Hospitalist team, case management teams at bedside thru morning to update plan of cares, concerns and trends for care, Updates with consults thru morning. Nephrology at bedside.
Resaw Machine Operator team at bedside for rounds and assessment updates. Continue with medications, follow up levophed titration trends and map trends. Patient able to void 450ml/yellow sediment/murky in appearance. Patient more wakeful interactive at times.
Complete bed bath provided. Will update vascular team follow up. Continue with hourly rounds and assessment trends. Update patient family at bedside. Critical care orientation and reinforcement in teaching plan of cares. Emotional support and
supportive cares ongoing.
--- NOTE | 2024-11-21 11:47 | CONS.URO ---
Consultation
-
Date/Time Consultation Performed: 11/21/24 1130
Performing Provider: Peffer
Reason for Consultation: Retention, hydroureter, FERNANDO, Septic UTI, bladder wall thickening
Medical History
History of Present Illness
68M with intellectual disability known to our practice with hx of urinary retention and UTIs
s/p TURP prior TURP in 2019 and last had a procedure around 2021 for dilation/resection of bladder neck contracture
Has a history of UTIs and persistent/recurrent chronic urinary retention with PVRs around 200cc range
Last treated for a UTI in our office 09/2024
Now admitted with septic UTI, FERNANDO
CT scan showed distended bladder with b/l hydroureter
Also a significant focal L bladder wall thickening suspicious for malignancy
Urology consulted for management
Past Medical History
Past Medical History: Other (dementia/encephalopathy pseudobulbar affect tardive dyskinesia A-fib on Eliquis vitamin B12 deficiency esophageal dilation 2009, aspiration pneumo Chronic ambulatory dysfunction HTN GERD Constipation BPH status
post TURP 2019 Urinary retention Hypothyroidism Bipolar disorder/anxiety/depressio)
Social History
Tobacco: Non-smoker
Alcohol: None
Drug: None
Allergies/Home Medications
Allergies
Allergy/AdvReac Type Severity Reaction Status Date / Time
benztropine Allergy Unknown Verified 11/20/24 12:13
risperidone (From Risperdal) Allergy Unknown Verified 11/20/24 12:13
Home Medications
�Medication �Instructions �Recorded �Confirmed �Type
buspirone 15 mg tablet 15 mg PO BID Mental Health/Anxiety 07/17/21 11/20/24 History
famotidine 20 mg tablet (Acid 20 mg PO BID Gastrointestinal Issue 07/17/21 11/20/24 History
Controller)
lisinopril 5 mg tablet 5 mg PO DAILY Blood Pressure 07/17/21 11/20/24 History
loperamide 2 mg capsule 2 mg PO Q4HPRN PRN loose stool 07/17/21 11/20/24 History
magnesium hydroxide 400 mg/5 mL 30 ml PO [id number] PRN constipation 07/17/21 11/20/24 History
oral suspension
mirtazapine 30 mg tablet 30 mg PO HS Mental Health/Anxiety 07/17/21 11/20/24 History
tamsulosin 0.4 mg capsule 0.4 mg PO BID Urinary Issue 07/17/21 11/20/24 History
apixaban 5 mg tablet 5 mg PO BID Blood Clot 04/29/23 11/20/24 History
Prevention/Tx
carbamide peroxide 6.5 % ear drops 4 drp EACH EAR MONTHLY ear problem 04/29/23 11/20/24 History
(Debrox)
dextromethorphan 20 mg-quinidine 1 cap PO DAILY Congestion 04/29/23 11/20/24 History
10 mg capsule (Nuedexta)
dextromethorphan-guaifenesin 10 10 ml PO Q6HPRN PRN 04/29/23 11/20/24 History
mg-100 mg/5 mL oral syrup (Chest cough/congestion
Congestion Relief DM)
ketoconazole 2 % shampoo 1 applic topical MOTH scalp problem 04/29/23 11/20/24 History
metoprolol succinate 25 mg 25 mg PO DAILY Heart Failure 04/29/23 11/20/24 History
tablet,extended release 24 hr
olopatadine 0.2 % eye drops 1 drp BOTH EYES DAILYPRN PRN 04/29/23 11/20/24 History
allergic symptoms/itching
sodium chloride 5 % eye ointment 1 applic RIGHT EYE BID Eye 04/29/23 11/20/24 History
(Stacey 128) Condition
zinc oxide 13 % topical cream 1 applic topical DAILYPRN PRN 04/29/23 11/20/24 History
(Desitin Daily Defense) apply to groin/buttocks
acetaminophen 325 mg tablet 650 mg PO Q4HPRN PRN MILD pain, 07/07/24 11/20/24 History
headache, temp>100.4
erythromycin 5 mg/gram (0.5 %) eye 1 applic BOTH EYES HS 07/07/24 11/20/24 History
ointment
bisacodyl 10 mg rectal suppository [address] DAILYPRN PRN IF NO BM BY 11/20/24 11/20/24 History
4TH DAY
docusate sodium 50 mg/5 mL oral 100 mg PO BIDPRN PRN IF NO BM BY 11/20/24 11/20/24 History
liquid 2ND DAY
levothyroxine 75 mcg tablet 75 mcg PO DAILY 11/20/24 11/20/24 History
(Synthroid)
neomycin-bacitracn Zn-polymyxn 3.5 1 applic topical BIDPRN PRN RASH 11/20/24 11/20/24 History
mg-400 unit-5,000 unit top oint
pkt (Triple Antibiotic)
neomycin-bacitracn Zn-polymyxn 3.5 1 applic topical QIDPRN PRN 11/20/24 11/20/24 History
mg-400 unit-5,000 unit top oint SCRAPES,ABRASIONS
pkt (Triple Antibiotic)
phenyleph-shark liver [address] Q4HPRN PRN HEMORRHOIDAL 11/20/24 11/20/24 History
sic-yjuqpm-kah 0.25 %-3 %-12 %
rectal cream (Hemorrhoidal)
polyethylene glycol 3350 17 17 g PO DAILY Constipation 11/20/24 11/20/24 History
gram/dose oral powder
sennosides 8.6 mg tablet (senna) 17.2 mg PO HSPRN PRN IF NO BM BY 11/20/24 11/20/24 History
3RD DAY
triamcinolone acetonide 0.1 % 1 applic topical BIDPRN PRN RASH 11/20/24 11/20/24 History
topical ointment
Physical Exam
Vital Signs
Vital Signs
Temp Pulse Resp BP Pulse Ox
99.7 F 74 22 140/64 95
11/21/24 08:05 11/21/24 11:00 11/21/24 11:00 11/21/24 11:00 11/21/24 11:00
Lab / Testing Results
Laboratory Results
11/21/24 04:15
Physical Exam
General: Well Nourished and Comfortable
Respiratory: Non Labored Respirations
GI: Soft and Non Tender
Genito-urinary: No Costovertebral Tend and Clear Urine
Neuro: Nonfocal/Grossly Intact
Psych: Calm and Apparent Dementia
Assessment / Plan
-
68M with acute on chronic urinary retention with septic UTI, FERNANDO and b/l hydroureter likely due to ureteral reflux
New focal L bladder wall thickening on CT
- 18Fr joel placed at bedside with 900cc cloudy urine drained. This was a PVR as it was immediately after patient voided 400cc
- Recommend maintaining joel for at least 1 week to allow bladder decompression, UTI treatment, and healing after high volume retention
- Can consider future trial of void to return to baseline however this episode may represent a progression of bladder dysfunction. Will leave this decision up to Dr. Shelby after discharge
- Trend renal function now that outlet obstruction resolved
- Bladder wall thickening on CT is moderately concerning for new malignancy, vs focal cystitis from active infection
- Will need assessment with cystoscopy after resolution of septic UTI, likely best done as outpatient
[2024-11-21] MEDS: MERREM 500 MG IV ×2 (12:25→22:28)
--- NOTE | 2024-11-21 12:33 | PTCARENOTE ---
Continue wean taper of levophed. Follow up titration protocols. MAP maintained over 65. VSS continue following trends. Updates in antibiotics and culture trends with management engineer. Bedside follow up. Assessment continues with some improvement.
Continue follow up input output trends. Skin cares and supportive cares ongoing. Await speech, pt/ot follow up. Patient sister in and out at bedside, continue teaching and supportive cares.
--- NOTE | 2024-11-21 13:12 | PTCARENOTE ---
Update with sister at bedside. Discussing medications, delivery/route, diet, consistency, textures and eating habits at home. Medications she crushes in apple sauce. Thin liquids sips not typically with straws. Food also typically puree of
consistency. Await speech team. Continue to follow.
--- NOTE | 2024-11-21 14:46 | PTCARENOTE ---
Patient working with PT team. Out of bed as noted. Chief complaint at this time is hunger. Continue titration of levophed. IVF with NaHCO3 as ordered, antibiotics as ordered.
--- NOTE | 2024-11-21 14:55 | PTOTSP ---
Speech Language Pathology
Pt seen for clinical bedside swallow evaluation. Sister present at bedside who reported pt eats regular solids, other than bread, at her house when he stays with her, but he is on pureed solids at [facility] requiring order from PCP
for consideration of diet upgrade. Given baseline diet of pureed solids, edentulous status coupled with tardive dyskinesia and intellectual disability with current ICU admission with septic shock, discussed with sister that would not consider
advanced solids this date. P.O. trials of puree and thin liquids provided. Lingual thrusting frequently noted at rest and with P.O. trials. No oral residue with limited consistencies trialed. No overt signs of aspiration.
Recommend:
(1) Initiate baseline diet of IDDSI Level 4 (Puree) and Thin Liquids
(2) General aspiration precautions (ok for straw use)
(3) Meds crushed in puree as able
(4) UNLOADING CHECKER to continue to follow
--- NOTE | 2024-11-21 15:25 | PTCARENOTE ---
Speech team at bedside. Update plan of cares and dietary needs/concerns. Will await recommendations and follow up orders.
--- NOTE | 2024-11-21 15:42 | CON.ID ---
Consultation
-
Date/Time Consultation Requested: 11/21/2024 1529
Date/Time Consultation Performed: 11/21/2024 1542
Requesting Provider: Dr. Arvizu
Performing Provider: Dr. Crawford
Reason for Consultation: Clinical sepsis
Chief Complaint / Past History
History of Present Illness
Dave Lord is a 68-year-old man with a significant past medical history of intellectual disability/autism/developmental delay being evaluated the request of Dr. Arvizu in regards to bacteremia. History is obtained from chart review, along
with history obtained from the patient's sister who is at the bedside. Patient is essentially nonverbal and cannot provide no additional history for me.
According to the sister, the patient was at physical therapy yesterday when he was found to have generalized lethargy which was quite out of character for him. Ultimately, he was brought to the emergency room for further evaluation. Once here, he
was found to be febrile to 102.9 degrees. White count was noted to be markedly elevated. Blood cultures obtained at the time of admission are now positive for ESBL E. coli. Infectious Diseases is asked to comment upon further antimicrobial
management.
Past History
Additional Past Medical History:
Intellectual disability (chronically nonverbal)
Tardive dyskinesia
A-fib (on Eliquis)
B12 deficiency
Ambulatory dysfunction
HTN
GERD
Constipation
BPH
Hypothyroidism
Additional Past Surgical History:
Esophageal dilatation (2009)
TURP (2019)
Allergy History:
benztropine Allergy (Verified 11/20/24 12:13)
Unknown
risperidone (From Risperdal) Allergy (Verified 11/20/24 12:13)
Unknown
Medications Reviewed: Yes
Current Antibiotics:
Meropenem 500 mg IV q.12 hours
Social History
Tobacco: Non-Smoker
Alcohol: None
Drug: None
Personal: Single
Living: Assisted Living
Employment: Disabled
Family History
Family History: Not Pertinent
Review of Systems
Vital Signs
Temp Pulse Resp BP Pulse Ox
97.5 F 76 16 122/63 98
11/21/24 11:53 11/21/24 15:15 11/21/24 15:15 11/21/24 15:00 11/21/24 15:15
Physical Exam
Physical Exam
Constitutional: No Acute Distress, Comfortable, Chronically Ill and Non-toxic
Eyes: No Conjunctival Hemorrhage and Sclera Anicteric
Cardiovascular: Regular Rate and S1/S2; Negative S3/S4
Pulmonary: Clear; Negative Wheezes, Rales or Rhonchi
Gastrointestinal: Soft, Non Tender, Distended, Normal Bowel Sounds, No Rebound and No Guarding
Genito-Urinary: Chen and Turbid Urine (Sediment noted)
Extremities: Edema; Negative Cyanosis or Erythema
Skin: Warm and Dry; Negative Rash or Jaundice
Neurological: Awake and Alert
Psychological: Calm
Lines: PICC (Midline; right upper extremity)
Lab / Diagnostic Study Results
11/21/24 04:15
Abs Immat Gran (auto) 0.1 10^3/uL (0-0.05) H 11/21/24 04:15
Absolute Neuts (auto) 19.0 10^3/uL (1.4-6.5) H 11/21/24 04:15
Absolute Lymphs (auto) 0.3 10^3/uL (1.2-3.4) L 11/21/24 04:15
Absolute Monos (auto) 0.7 10^3/uL (0.1-0.6) H 11/21/24 04:15
Absolute Basos (auto) 0.0 10^3/uL (0-0.2) 11/21/24 04:15
Immature Gran % 0.7 % (0-0.5) H 11/21/24 04:15
Neutrophils % 94.3 % (42.2-75.2) H 11/21/24 04:15
Lymphocytes % 1.3 % (20.5-51.1) L 11/21/24 04:15
Monocytes % 3.5 % (1.7-9.3) 11/21/24 04:15
Eosinophils % 0.0 % (0-6) 11/21/24 04:15
Basophils % 0.2 % (0-2) 11/21/24 04:15
Lactic Acid 2.2 mmol/L (0.7-2.0) H 11/21/24 04:15
Ur Squamous Epith Cells /LPF (Few) 11/20/24 13:48
Microbiology Results
Micro:
11/20/24 14:52 Blood Culture - Preliminary
Blood/Venous Positive culture in progress
Gram Stain - Preliminary
11/20/24 15:44 Blood Culture - Preliminary
Blood/Venous Escherichia coli - ESBL
Gram Stain - Final
11/20/24 13:48 Urine Culture - Final
Urine No Significant Growth
11/20/24 20:11 MRSA Screen - Pending
Nose
Imaging:
11/21/2024 CT abdomen/pelvis without contrast: bilateral perinephric stranding with mild to moderate bilateral hydroureter without overt obstructive uropathy. Findings may reflect ascending urinary tract infection. Focal urinary bladder wall
thickening suspicious for neoplasm. Please see full dictation for additional detail.
Assessment / Plan
Clinical sepsis
Bacteremia with ESBL E. coli
Complicated urinary tract infection; possible pyelonephritis
Leukocytosis
Hyponatremia
FERNANDO
Lactic acidosis
Intellectual disability (chronically nonverbal)
Tardive dyskinesia
A-fib (on Eliquis)
B12 deficiency
Ambulatory dysfunction
HTN
GERD
Constipation
BPH
Hypothyroidism
Recommendations:
ESBL E. coli identified by PCR methodology. Await final susceptibility data.
Continue on meropenem for the present. Dose is appropriate for renal insufficiency.
Repeat blood cultures ordered.
Monitor white count and temperature curve.
Monitor creatinine and est. CrCl to guide further antibiotic dosing adjustment.
Continue with supportive measures.
Further recommendations as additional data is returned.
Care Review
Plan reviewed with: Nurse
[2024-11-21] MEDS: TYLENOL 650 MG PO (16:07)
[2024-11-21 16:18] LABS: APTT 44.7 Sec (23.4-35.0)
[2024-11-21 16:25] LABS: INR 2.88; PT 30.1 Sec (11.4-14.6)
[2024-11-21 16:44] LABS: Blood Urea Nitrogen 30 mg/dl (9-20); Calcium 8.5 mg/dl (8.4-10.2); Carbon Dioxide 24 mmol/L (22-30); Chloride 99 mmol/L (98-107); Estimated Creatinine Clearance 20 ml/min; Glucose 132 mg/dl (70-99); Potassium 4.1 mmol/L (3.5-5.1); Sodium 130 mmol/L (135-145); eGFR 25.05
--- NOTE | 2024-11-21 17:13 | PTCARENOTE ---
Updated assessment and lab trends with blasting entryman team. Follow up labs as ordered. Repeat cultures sent. Levophed remains off. IVF to be discontinued post this infusion and capped. Await dinner as ordered. Patient more interactive with sister at
this time.Watching movie with his sister at bedside. Worked well with pt and speech today. Continue with teaching and supportive cares. Sister request patient to eat in chair and return to bed after dinner. Continue hourly rounds and safety checks.
--- NOTE | 2024-11-21 18:33 | PTCARENOTE ---
Update with finishing room supervisor team. Return patient to levophed at this time. Trending for MAP of 65. Update with patient sister at bedside. Ordered dinner at this time. Continue to follow critical care trends.
[2024-11-21] MEDS: BUSPAR 15 MG PO (19:32)
[2024-11-21] MEDS: ELIQUIS 5 MG PO (19:36)
[2024-11-21] MEDS: PEPCID 20 MG PO (19:40)
[2024-11-21 21:28] LABS: Venous Blood Gas B.E. 2.6 mmol/L (-4 to +4); Venous Blood Gas O2 Sat % 99.8 %
[2024-11-21 22:07] LABS: Blood Urea Nitrogen 37 mg/dl (9-20); Calcium 8.5 mg/dl (8.4-10.2); Carbon Dioxide 26 mmol/L (22-30); Chloride 97 mmol/L (98-107); Estimated Creatinine Clearance 20 ml/min; Glucose 117 mg/dl (70-99); Potassium 3.6 mmol/L (3.5-5.1); Sodium 127 mmol/L (135-145); eGFR 26.21
[2024-11-21] MEDS: ERYTHROMYCIN 0.5% OPHTHALMIC OINTMENT 1 APPLIC BOTH EYES (22:27)
[2024-11-21] MEDS: REMERON 30 MG PO (22:28)
--- NOTE | 2024-11-21 22:50 | PTCARENOTE ---
received pt from venkattnazaela RN, patient in room with sister at bedside. patient lethargic but awakens easily ,gives one word answers. patient pleasant with smile on face. patient at dinner late, consumed 100% of meal with assistance from sister.
when asked if he is having any pain, patient responds 'no', meds crushed and given with applesauce, no s/s of aspiration or pocketing. asst x 1 from chair to bed, transfers with minimal issues.
patient remains on levo for hypotension.
[2024-11-22] VITALS (41 sets, daily range): BP systolic 86–147; BP diastolic 35–99; BMI 27.0
[2024-11-22 04:47] LABS: Venous Blood Gas B.E. 1.9 mmol/L (-4 to +4); Venous Blood Gas O2 Sat % 100.0 %
[2024-11-22 04:48] LABS: Venous Blood Gas O2 Therapy 21%
[2024-11-22 04:55] LABS: Hematocrit 26.2 % (39.0-52.0); Hemoglobin 9.2 g/dL (13.0-18.0); Mean Corp Hgb Conc. 35.1 g/dL (33.0-37.0); Mean Corpuscular Volume 88.5 fL (80.0-94.0); Nucleated Red Blood Cells % 0 % (-); Platelet Count 174 10^3/uL (130-400); Red Cell Dist. Width 12.6 % (11.5-14.5)
[2024-11-22 05:20] LABS: ALT (SGPT) 14 U/L (0-50); AST (SGOT) 21 U/L (17-59); Albumin 2.3 g/dl (3.5-5.0); Alkaline Phosphatase 73 U/L (38-126); Blood Urea Nitrogen 38 mg/dl (9-20); Calcium 8.2 mg/dl (8.4-10.2); Carbon Dioxide 26 mmol/L (22-30); Chloride 101 mmol/L (98-107); Estimated Creatinine Clearance 22 ml/min; Glucose 107 mg/dl (70-99); Magnesium 1.8 mg/dl (1.6-2.3); Potassium 3.6 mmol/L (3.5-5.1); Sodium 131 mmol/L (135-145); Total Protein 4.7 g/dl (6.3-8.2); eGFR 28.85
[2024-11-22] MEDS: KLOR-CON 20 MEQ PO (06:03)
[2024-11-22] MEDS: SYNTHROID 75 MCG PO (06:03)
--- NOTE | 2024-11-22 06:38 | PTCARENOTE ---
labs drawn, K+replaced, renal ultrasound completed, resting comfortably with sister at bedside.
[2024-11-22] MEDS: TYLENOL 650 MG PO ×2 (07:31→12:36)
[2024-11-22] MEDS: ELIQUIS 5 MG PO ×2 (07:32→20:29)
[2024-11-22] MEDS: MIRALAX 17 GRAMS PO (07:32)
[2024-11-22] MEDS: BUSPAR 15 MG PO ×2 (07:32→20:29)
[2024-11-22] MEDS: MURO 5% OPHTHALMIC OINTMENT 1 APPLIC RIGHT EYE ×2 (07:32→20:30)
--- NOTE | 2024-11-22 08:12 | W.PN.INTV ---
Today's Communication / Plan
Recommendations
Continue Levophed, titrating to keep MAP >65
If Levophed requirements increase towards 10-15 mcg/min, then start vasopressin
Check random cortisol --> if value is 19 or less then consider starting stress dose steroids
Encourage PO diet as tolerated (cleared for IDDSI level 4 diet by FISHER TRAWL [facility])
PT/OT
Rn First Assistant services will continue to follow along while patient remains in the ICU
Assessment
-
Assessment: 68-year-old male with a past medical history of intellectual disability with suspected autism, BPH s/p TURP, anxiety, history of aspiration pneumonia, hypertension, hypothyroidism, bipolar disorder, history of atrial flutter, history of
hemorrhoids and bilateral blepharitis who presents with altered mental status and generalized weakness. He was febrile and hypotensive in the ER, with initial BP 101/51 with heart rate 91 and SpO2 98% on room air. Temperature initially 98.4 �F
which increased to 102.9 �F via rectal temperature. Labs pertinent for elevated WBC at 25.5, Hb 12.1, sodium 129, creatinine 3.3, lactate 3.1, TSH 1.07, and urinalysis positive with +3 leukocyte esterase and >100 urine WBC. Blood and urine
cultures collected. CXR showed bibasilar parenchymal opacities with left perihilar interstitial thickening suggestive of pneumonia. CT abdomen/pelvis showed bilateral perinephric stranding with mild�moderate bilateral hydroureter without overt
obstructive uropathy, and a focal urinary bladder wall thickening suspicious for neoplasm. This hyperattenuating lesion is new compared to prior CT A/P from April 2023. In the ER he was given 2 L of NS 0.9% + Ofirmev, and he was admitted to
IMU. He received another 2L of IVF however remained hypotensive, prompting levophed to be started. Patient then transferred to the ICU and Rn First Assistant services consulted for additional management/recommendations.
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
bilateral blepharitis
Impression:
#Septic shock with source likely due to UTI
#Complicated UTI/pyelonephritis with mild�moderate bilateral hydroureter without overt obstructive uropathy
#Severe FERNANDO
#Lactic acidosis due to septic shock
#Focal urinary bladder wall thickening - differential includes neoplasm vs hemorrhage
#Hypotonic hyponatremia
#Chronic anemia
#Metabolic acidosis with preserved anion gap (due to FERNANDO + lactic acidosis)
#BPH s/p TURP (@ [facility] - 2019)
#Baseline intellectual disability
Plan:
- Continue with antibiotics and considering he is in septic shock and with blood cultures positive for ESBL E. coli, continue with meropenem
- ABx per ID
- Follow-up blood culture species from 11/20; follow up set of surveillance blood cultures from 11/21
- Follow-up urine culture
- There is mild left perihilar interstitial thickening and bibasilar opacities however it appears similar to prior CXR from 07/07/2024, per my review
- MRSA swab is positive
- Hold home antihypertensives for now
- Lactate has now normalized as of evening of 11/21 -no longer need to continue trending at this time
- Continue with vasopressors, titrating down as tolerated while keeping MAP >65
- Midline placed by PICC team; if levo requirements worsen and get >10 mcg/min, then I will start vasopressin
- Replete calcium
- Consider administering supplemental albumin to maintain levels >3 g/dL
- If additional vasopressors are needed or if unable to wean down, then will start stress dose steroids; check random cortisol for now
- Maintain SpO2 >90-94%; currently on room air saturating 96%
- Continue aspiration precautions; keep HOB >30-45�
- Trend sCr and UOP
- Avoid nephrotoxic agents and renally dose all meds/Abx
- Replete electrolytes with K>4, Mg>2; monitor for hyperkalemia
- Nephrology consulted
- On CT A/P from 11/21/2024, there is a hypoattenuating focal region along the left lateral wall measuring 4.6 x 2.5 cm, not seen previously. Urology consulted for consideration of cystoscopy (he follows with Dr. Shelby as an outpatient - last visit
04/10/2024) -cystoscopy will be considered after resolution of his septic UTI, likely best done as an outpatient (per Urology)
- Appears that last flexible cystoscopy was in July 2022 which does not mention any abnormal masses seen at that time; also no bladder neck contracture seen or BOJORQUEZ noted
- Maintain euglycemia with goal BG 140-180
- Trend H/H and transfuse if needed to keep Hb>7g/dL; keep plt>20k, unless there is concern for bleeding then keep plt>50k
- prn nebulized bronchodilators - not currently bronchospastic
- PT/OT
- DVT ppx: Eliquis
Code status: DNR/DNI
Continue ICU level of care for this critically ill patient
Critical care statement: A total of 41 minutes of critical care time was provided for this patient today. This includes management of unstable vital signs, evaluation of the patient at bedside, reviewing the patient's pertinent medical records
including radiographs, microbiology, laboratory evaluations, and discussion with primary team, consultants, pharmacy, nutrition, physical therapy, case management, charge nurse, critical care nursing, and respiratory therapy.
Data:
CT abdomen/pelvis without contrast 11/21/2024:
Bilateral perinephric stranding with mild to moderate bilateral hydroureter without overt obstructive uropathy. Findings may reflect ascending urinary tract infection.
Focal urinary bladder wall thickening suspicious for neoplasm, new from prior. Recommend direct visualization.
Renal US 11/22/2024:
Normal sonographic appearance of both kidneys.
Chen catheter is present within the bladder and the bladder is decompressed.
Subjective Dataa
Subjective Data
Date of Service:
Date of Service: November 22, 2024
Chief Complaint: Rn First Assistant Follow Up
Subjective:
Patient was seen and evaluated this morning. Current heart rate 88, BP 96/43 on Levophed at 2 mcg/min and saturating 96% on room air. On IVF NS 0.9% at 70cc/hr. Patient's sister, Herminia, is present at bedside.
Review of Systems
General: Other (Unobtainable given patient's clinical status/minimally conversive)
Objective Data
Data Reviewed
Vital Signs / I&O / Oxygen:
Vital Signs
Temp Pulse Resp BP Pulse Ox
100.9 F H 94 26 110/99 96
11/22/24 07:51 11/22/24 07:51 11/22/24 07:51 11/22/24 07:51 11/22/24 08:00
Intake and Output
11/21/24 11/22/24 11/23/24
06:59 06:59 06:59
Intake Total 1372.5 / 1525.0 2767.8 / 2905.3 211.25 / 211.25
Output Total 400 / 400 1650 / 1650
Balance 972.5 / 1125.0 1117.8 / 1255.3 211.25 / 211.25
SaO2 96
Physical Exam
General: Respiratory Distress (negative) and Comfortable
HEENT: Normocephalic and Anicteric
Cardiovascular: S1-S2, Murmur (negative), Rub (negative) and Peripheral Edema (negative)
Respiratory: Wheeze (negative), Crackles (bibasilar), Rhonchi (negative) and Non-Labored Respirations
GI: Soft, Non Distended, Non Tender and Normal Bowel Sounds
Neurology: Tremors (negative) and Lethargic (Awakens to tactile stimuli and requires frequent redirecting)
Skin: Warm, Dry, Cyanosis (negative) and Jaundice (negative)
Labs/Micro/Reports
Lab Data
11/22/24 04:20
11/22/24 04:20
Laboratory Results
11/21/24
15:57
PT 30.1 H
INR 2.88
APTT 44.7 H
Microbiology
11/20/24 14:52 Blood/Venous Blood Culture - Preliminary
Positive culture in progress
11/20/24 14:52 Blood/Venous Gram Stain - Preliminary
11/20/24 15:44 Blood/Venous Blood Culture - Preliminary
Escherichia coli - ESBL
11/20/24 15:44 Blood/Venous Gram Stain - Final
11/20/24 20:11 Nose MRSA Screen - Final
Staph aureus MRSA
11/20/24 13:48 Urine Urine Culture - Final
No Significant Growth
--- NOTE | 2024-11-22 10:43 | W.PN.HOSP.TC ---
Today's Communication/Plan
-
cont meropenem
wean pressors
cont IVF
OOB
apprec all consultants' notes
Assessment / Plan
Assessment / Plan
pt is a 68 year old male
Septic shock with lactic acidosis secondary to ESBL bacteremia with prersumed UTI even if urine culture no growth--CT scan with ascending UTI findings with possible bladder neoplasm--WBC count improving--repeat blood cultures to ensure clearance
--IVF changed to NSS, acidosis corrected--wean pressors to off-- apprec evaluator--changed rocephin to cefepime and now on meropenem (renal dosing)--apprec ID--would cont flomax---Tylenol as needed fever
anemia--HGB dropped from 12 to 9--suspect dilutional from IVF--no bleeding noted
Essential HTN�-Hold lisinopril 5 mg daily, metoprolol succinate 25 mg daily
FERNANDO in setting of septic shock/UTI/History of urinary retention/BPH status post TURP 2019--apprec renal--creat 3.3 and down to 2.4 but baseline 0.7 in 06/2024- Renal/bladder ultrasound WNL-- hold lisinopril due to FERNANDO--cont joel with flomax
Acute hyponatremia likely hypovolemic--sodium 131--apprec renal--cont IVF-- TSH WNL, cortisol pending
Intellectual disability/autism since age 3--Chronic nonverbal since age 3 except will say 1 word at a time asking for things--Pseudobulbar affect/tardive dyskinesia
Paroxysmal A-fib--Patient on Eliquis
Hypothyroidism--TSH WNL--Continue levothyroxine 75 mcg p.o. daily
Bipolar disorder/anxiety/depression--Continue BuSpar 15 mg p.o. twice daily, mirtazapine 30 mg at bedtime
GERD--History of esophageal dilation 2009--Continue famotidine 20 mg twice daily
History of constipation--Continue docusate sodium 100 mg twice daily as needed if no bowel movement by secondary
vitamin B12 deficiency--cont supplement
esophageal dilation 2009--aspiration pneumo
positive MRSA screen
DVT prophylaxis--Eliquis
code status--spoke with sister this AM--DNR/DNI
Total Critical Care Time 31 minutes. I was immediately available to the patient and staff. I personally examined, reviewed labs, diagnostic images/reports, interpretations, treatment plans, discussed patient care with other providers and family
or caregivers (if patient is unable to make decisions), entered orders as appropriate and documented the medical record.
Anticipated Discharge: > 48 hours
Subjective/Interval History
-
Date of Service: November 22, 2024
pt feels a bit better
Objective Data
-
Labs:
Laboratory Results
11/22/24
04:20
WBC 19.6 H
Hgb 9.2 L
Hct 26.2 L
Plt Count 174
Sodium 131 L
Potassium 3.6
Chloride 101
Carbon Dioxide 26
BUN 38 H
Creatinine 2.4 H
Glucose 107 H
Calcium 8.2 L
Total Bilirubin 0.3
AST 21
ALT 14
Alkaline Phosphatase 73
Vital Signs:
max temp for 24 hours
11/22/24
07:51
Temp 100.9 F H
Vital Signs
Temp Pulse Resp BP Pulse Ox
100.9 F H 94 26 110/99 96
11/22/24 07:51 11/22/24 07:51 11/22/24 07:51 11/22/24 07:51 11/22/24 08:00
I&O
11/21/24 11/22/24 11/23/24
06:59 06:59 06:59
Intake Total 1372.5 / 1525.0 2767.8 / 2905.3 528.75 / 528.75
Output Total 400 / 400 1650 / 1650
Balance 972.5 / 1125.0 1117.8 / 1255.3 528.75 / 528.75
Review of Systems
-
All other systems: Reviewed and negative
Physical Exam
-
General: Well Developed, Well Nourished and No Apparent Distress
HEENT: Normocephalic and Atraumatic; Negative Oxygen
Respiratory: Clear to Auscultation; Negative Wheezes or Rhonchi
Cardiac: Regular Rhythm and S1/S2; Negative Murmur
GI: Soft, Nontender, Nondistended and Normal Bowel Sounds
Genito-urinary: Clear Urine and Joel
Musculoskeletal: No Clubbing, No Cyanosis and No Edema
Neuro: Awake and Alert
Psych: Calm
--- NOTE | 2024-11-22 10:44 | W.PN.ID1 ---
Date of Service
Date of Service: November 22, 2024
Today's Communication
Continue antibiotics.
Assessment / Plan
Clinical sepsis
Bacteremia with ESBL E. coli
Complicated urinary tract infection; possible pyelonephritis
Leukocytosis
Hyponatremia
FERNANDO
Lactic acidosis
Intellectual disability (chronically nonverbal)
Tardive dyskinesia
A-fib (on Eliquis)
B12 deficiency
Ambulatory dysfunction
HTN
GERD
Constipation
BPH
Hypothyroidism
Recommendations:
ESBL E. coli identified by PCR methodology. Await final susceptibility data.
Continue on meropenem for the present. Dose is appropriate for renal insufficiency.
Repeat blood cultures pending.
Monitor white count and temperature curve.
Monitor creatinine and est. CrCl to guide further antibiotic dosing adjustment.
Continue with supportive measures.
Further recommendations as additional data is returned.
Chief Complaint
-: Bacteremia
Subjective / Review of Systems
Review of Systems: Fever
Vital Signs / Physical Exam
Vital Signs
Vital Signs
Temp Pulse Resp BP Pulse Ox
100.9 F H 94 26 110/99 96
11/22/24 07:51 11/22/24 07:51 11/22/24 07:51 11/22/24 07:51 11/22/24 08:00
Physical Exam
Constitutional: Comfortable, Chronically Ill and Non-toxic
Eyes: Sclera Anicteric
Cardiovascular: S1/S2; Negative S3/S4
Pulmonary: Clear and Non Labored
Gastrointestinal: Soft, Non Distended, Normal Bowel Sounds and No Rebound
Genito-Urinary: Negative CVA Tenderness
Extremities: Edema; Negative Cyanosis or Erythema
Neurological: Awake and Other (Nonverbal for me.)
Psychological: Calm
Objective Data
Lab Data
Lab Results
11/22/24 04:20
11/22/24 04:20
PT 30.1 Sec (11.4-14.6) H 11/21/24 15:57
INR 2.88 11/21/24 15:57
APTT 44.7 Sec (23.4-35.0) H 11/21/24 15:57
Estimated Creat Clear 22 ml/min 11/22/24 04:20
Lactic Acid Cancelled 11/22/24 06:00
Total Bilirubin 0.3 mg/dl (0.2-1.3) 11/22/24 04:20
AST 21 U/L (17-59) 11/22/24 04:20
ALT 14 U/L (0-50) 11/22/24 04:20
Alkaline Phosphatase 73 U/L (38-126) 11/22/24 04:20
Most recent labs reviewed.
Micro Results:
11/20/24 14:52 Blood Culture - Preliminary
Blood/Venous Positive culture in progress
Gram Stain - Preliminary
11/20/24 15:44 Blood Culture - Preliminary
Blood/Venous Escherichia coli - ESBL
Gram Stain - Final
11/20/24 20:11 MRSA Screen - Final
Nose Staph aureus MRSA
11/21/24 15:57 Blood Culture - Pending
Blood/Venous
11/20/24 13:48 Urine Culture - Final
Urine No Significant Growth
Imaging:
11/21/2024 CT abdomen/pelvis without contrast: bilateral perinephric stranding with mild to moderate bilateral hydroureter without overt obstructive uropathy. Findings may reflect ascending urinary tract infection. Focal urinary bladder wall
thickening suspicious for neoplasm. Please see full dictation for additional detail.
Care Review
Plan reviewed with: Physician (Critical Care)
--- NOTE | 2024-11-22 10:46 | CM ---
Patient seen at bedside in ICU with sister present. Patient eating with sister's assistance. Patient seen by therapy 11/21 and recommendation is home vs SNF. Patient sister would like him to return to [facility] with Lily for PT/OT if
possible. CM will continue to follow for discharge planning needs.
Plan; home to [facility] with [facility] vs SNF; IF SNF will need level II.
--- NOTE | 2024-11-22 10:48 | PTCARENOTE ---
Updated assessment, vital signs ongoing and as documented. Follow up trends in critical care ongoing. Updated report and plan of cares in am rounds. Updates with certified green building engineer, infectious disease and critical care team. Continue with teaching for
patient and daughter. Updated plan of cares. Continue with unit cares, skin cares and mobility protocols. 95% breakfast taken. Continue aspiration precautions continue. Emotional support and supportive cares ongoing.
--- NOTE | 2024-11-22 11:27 | W.PN.NEPH.PH ---
Today's Communication / Plan
-
Continue IV fluid, pressor, Chen cath
Assessment/Plan
-
Impression:
Sepsis/gram-negative devi bacteremia suspected due to underlying UTI
Acute kidney injury
Nongap metabolic acidosis
Hyponatremia
Possible underlying bladder neoplasm and/or obstruction with perinephric stranding on CT
Paroxysmal atrial fibrillation
Intellectual disability
Hypothyroidism
Bipolar anxiety depression
GERD
Plan:
Acuity likely due to strong prerenal stimulus in setting of septic physiology with hemodynamic compromise in the setting of E. coli ESBL bacteremia
- Maintain alkaline IV fluids in setting of nongap metabolic acidosis and pressor support to keep MAP at 65 or greater
-Holding antihypertensives
Continue Chen catheter placement for possible underlying obstructive component and will likely need urological follow-up for possible bladder mass noted on CT (but will defer to ),
- No acute dialysis requirement
Continue IV fluids
Nonoliguric
Renal dose all medications for appropriate GFR
Discussed with the sister at bedside
Patient is critically ill with acute renal failure in the setting of sepsis 1 minutes critical care time spent with patient
-
-
Date of Service: November 22, 2024
CC / HPI / ROS
-
Chief Complaint:
FERNANDO
History of Present Illness:
Acute kidney injury septic shock on pressors
Review of Systems:
Patient responsive awake lethargic
Chen nonoliguric
Labs
-
Labs:
WBC 19.6 10^3/uL (4.8-10.8) H 11/22/24 04:20
RBC 2.96 10^6/uL (4.70-6.10) L 11/22/24 04:20
Hgb 9.2 g/dL (13.0-18.0) L 11/22/24 04:20
Hct 26.2 % (39.0-52.0) L 11/22/24 04:20
Plt Count 174 10^3/uL (130-400) 11/22/24 04:20
Sodium 131 mmol/L (135-145) L 11/22/24 04:20
Potassium 3.6 mmol/L (3.5-5.1) 11/22/24 04:20
Chloride 101 mmol/L (98-107) 11/22/24 04:20
Carbon Dioxide 26 mmol/L (22-30) 11/22/24 04:20
BUN 38 mg/dl (9-20) H 11/22/24 04:20
Creatinine 2.4 mg/dL (0.7-1.3) H 11/22/24 04:20
eGFR 28.85 11/22/24 04:20
Glucose 107 mg/dl (70-99) H 11/22/24 04:20
Calcium 8.2 mg/dl (8.4-10.2) L 11/22/24 04:20
Phosphorus 2.7 mg/dl (2.5-4.5) 11/22/24 04:20
Albumin 2.3 g/dl (3.5-5.0) L 11/22/24 04:20
Physical Exam
-
Vital Signs:
Vital Signs
Temp Pulse Resp BP Pulse Ox
100.9 F H 85 19 90/37 97
11/22/24 07:51 11/22/24 10:45 11/22/24 10:45 11/22/24 10:30 11/22/24 10:51
[2024-11-22 12:22] LABS: Cortisol, Random 31.8 ug/dl
[2024-11-22] MEDS: LEVOPHED 250 IV (12:35)
[2024-11-22] MEDS: MERREM 500 MG IV (12:36)
[2024-11-22] MEDS: STERILE WATER FOR INJECTION 10 ML IV (12:36)
[2024-11-22] MEDS: NSS 1000 IV (12:47)
[2024-11-22] MEDS: ERYTHROMYCIN 0.5% OPHTHALMIC OINTMENT 1 APPLIC BOTH EYES (21:10)
[2024-11-22] MEDS: REMERON 30 MG PO (21:10)
[2024-11-23] VITALS (17 sets, daily range): BP systolic 94–154; BP diastolic 48–78; BMI 27.1
--- NOTE | 2024-11-23 00:02 | PTCARENOTE ---
Pt on/off norepi 2mcg.
Caregiver bedside plan of care explained.
See assessment flow sheet for further details.
[2024-11-23] MEDS: STERILE WATER FOR INJECTION 10 ML IV ×2 (01:40→09:18)
[2024-11-23] MEDS: MERREM 500 MG IV ×2 (01:40→09:10)
[2024-11-23] MEDS: NSS 1000 IV (01:41)
--- NOTE | 2024-11-23 02:30 | PTCARENOTE ---
No change in patient assessment
[2024-11-23 04:53] LABS: Hematocrit 26.5 % (39.0-52.0); Hemoglobin 9.3 g/dL (13.0-18.0); Mean Corp Hgb Conc. 35.1 g/dL (33.0-37.0); Mean Corpuscular Volume 89.8 fL (80.0-94.0); Nucleated Red Blood Cells % 0 % (-); Platelet Count 208 10^3/uL (130-400); Red Cell Dist. Width 13.2 % (11.5-14.5)
--- NOTE | 2024-11-23 05:16 | PTCARENOTE ---
Norepi remains off, no further change in assessment.
[2024-11-23 05:20] LABS: ALT (SGPT) 28 U/L (0-50); AST (SGOT) 54 U/L (17-59); Albumin 2.4 g/dl (3.5-5.0); Alkaline Phosphatase 126 U/L (38-126); Blood Urea Nitrogen 37 mg/dl (9-20); Calcium 8.9 mg/dl (8.4-10.2); Carbon Dioxide 24 mmol/L (22-30); Chloride 108 mmol/L (98-107); Estimated Creatinine Clearance 27 ml/min; Glucose 116 mg/dl (70-99); Magnesium 2.0 mg/dl (1.6-2.3); Potassium 4.6 mmol/L (3.5-5.1); Sodium 138 mmol/L (135-145); Total Protein 5.0 g/dl (6.3-8.2); eGFR 35.91
[2024-11-23] MEDS: SYNTHROID 75 MCG PO (05:38)
--- NOTE | 2024-11-23 07:41 | W.PN.URO.CBU ---
Today's Communication / Plan
-
s/p cystoscopy in 2022 => no bladder pathology noted
Maintain Chen to drainage - will likely require long-term indwelling catheter (inability to perform CIC)
Trend Cr
F/U in 1 mo for catheter change and cystoscopy
Assessment / Plan
-
Urosepsis
Bacteremia
Acute on chronic urinary retention
FERNANDO
Suspected neurogenic bladder dysfunction
H/o BPH s/p TURP ([facility])
H/o subsequent bladder neck contracture s/p dilation ([facility])
Diagnosis
-
Date of Service: November 23, 2024
-
Patient Diagnosis:
Urosepsis
Bacteremia
Acute on chronic urinary retention
FERNANDO
Suspected neurogenic bladder dysfunction
H/o BPH s/p TURP ([facility])
H/o subsequent bladder neck contracture s/p dilation ([facility])
Subjective
-
Chen catheter draining well.
Patient responsive (h/o intellectual disability).
Objective
-
Vital Signs
Temp Pulse Resp BP Pulse Ox
98.8 F 105 27 154/78 91
11/23/24 03:29 11/23/24 07:00 11/23/24 07:00 11/23/24 07:00 11/23/24 07:00
Intake and Output
11/22/24 11/23/24 11/24/24
06:59 06:59 06:59
Intake Total 2767.8 / 2905.3 2696.25 / 2766.25 70 / 70
Output Total 1650 / 1650 1810 / 1810
Balance 1117.8 / 1255.3 886.25 / 956.25 70 / 70
Intake:
Oral fluids 180 / 240 960 / 960
IV fluids (Total) 2587.8 / 2665.3 1736.25 / 1806.25 70 / 70
0.45%NaCl 1,000 ml @ 100 mls/hr 1600 / 1600
IV .[id number] SADE with Sodium
Bicarbonate 75 Meq Rx#:[id number]
Levophed 427.8 / 435.3 116.25 / 116.25
Nss 1,000 ml @ 70 mls/hr IV . 560 / 630 1620 / 1690 70 / 70
[id number] SADE Rx#:[id number]
Output:
Urine, Chen 1050 / 1050 1810 / 1810
Urine, Voided 600 / 600
Laboratory Results
11/23/24 04:29
11/23/24 04:29
Review of Systems
-
Unable to obtain full review of systems at this time due to: Acuity
Physical Exam
-
General - no acute distress
Abdomen - soft, non-tender, non-distended
Skin - warm & dry with no rash
Extremities - no clubbing, no cyanosis, no edema
Care Review
Data Reviewed
Discussed with: Hospitalist
CT Scan: Report Pers Reviewed and Image Pers Reviewed
Total Time Spent with Patient (in minutes): 15
--- NOTE | 2024-11-23 08:18 | W.PN.INTV ---
Today's Communication / Plan
Recommendations
- Downgrade to tele today
- 2.5mg midodrine tid, then stop tmrw
- Convert meropenem to ertapenem
- Outpt urology followup for cystoscopy
Assessment
-
Patient is a 68yo M with a PMH of intellectual disability with suspected autism, BPH s/p TURP, anxiety, history of aspiration pneumonia, hypertension, hypothyroidism, bipolar disorder, history of atrial flutter, history of hemorrhoids and bilateral
blepharitis who presents with altered mental status and generalized weakness. He was febrile and hypotensive in the ER, with initial BP 101/51 with heart rate 91 and SpO2 98% on room air. Temperature initially 98.4 �F which increased to 102.9 �F
via rectal temperature. Labs pertinent for elevated WBC at 25.5, Hb 12.1, sodium 129, creatinine 3.3, lactate 3.1, TSH 1.07, and urinalysis positive with +3 leukocyte esterase and >100 urine WBC. Blood and urine cultures collected. CXR showed
bibasilar parenchymal opacities with left perihilar interstitial thickening suggestive of pneumonia. CT abdomen/pelvis showed bilateral perinephric stranding with mild�moderate bilateral hydroureter without overt obstructive uropathy, and a focal
urinary bladder wall thickening suspicious for neoplasm. This hyperattenuating lesion is new compared to prior CT A/P from April 2023. In the ER he was given 2 L of NS 0.9% + Ofirmev, and he was admitted to IMU. He received another 2L of IVF
however remained hypotensive, prompting levophed to be started. Patient then transferred to the ICU and Therapy Manager services consulted for additional management/recommendations. Plan as below.
#Septic shock, suspect secondary to UTI/pyelonephritis
#Complicated UTI/pyelonephritis with mild�moderate bilateral hydroureter without overt obstructive uropathy
Blood cultures (11/20) positive for ESBL E. coli. Susceptibilities returned (see report). 11/21 blood cx with no growth 24hr. MRSA swab positive. Urine and cx without growth. Random cortisol 31.8; intermediate.
Today: pressors � none. BP: 141/68; MAP 87.
WBC downtrending (19.6>11.8). Afebrile.
- Convert meropenem to ertapenem, per ID
- ID following, appreciate recs
- Follow 11/21 blood cx at 48hr
- Keep MAP >65
- Midodrine 2.5mg tid until tomorrow
- Holding home antihypertensives
- PT/OT
#Hypoalbuminemia
4.1>2.8>2.3>2.1; downtrending.
- BP stable, will hold on supplemental albumin today
#Severe FERNANDO, improving
#Lactic acidosis due to septic shock, normalized
#Metabolic acidosis with preserved anion gap (due to FERNANDO + lactic acidosis)
Cr: 3.3>>2.7>>2.4>2.0. Last lactate 1.9.
- S/p alkaline IV fluids
- No acute dialysis requirement
- Trend Cr and UOP
- Avoid nephrotoxic agents and renally dose all meds/Abx
- Replete electrolytes with K>4, Mg>2
- Nephrology following, appreciate recs
#Focal urinary bladder wall thickening - differential includes neoplasm vs hemorrhage
CT a/p 11/21: 'hypoattenuating focal region along the left lateral wall measuring 4.6 x 2.5 cm, not seen previously.' Follows w Dr. Shelby urology outpatient (last visit 04/10/2024). Last flex sig (July 2022): no mention of abnormal masses or bladder
neck contracture/BOJORQUEZ.
- Continue Chen catheter placement for possible underlying obstructive component
- Urology f/u outpatient for cystoscopy eval of possible bladder mass noted on CT (Dr. Shelby)
#Acute on chronic anemia
Hgb 9.3 today, down from baseline 11-12. Stable from last few days.
- Trend H/H and transfuse if needed to keep Hb>7g/dL
#Hypotonic hyponatremia
Na 138, normalized.
- Continue to monitor
#Chronic
-Baseline intellectual disability
-BPH status post TURP
-Anxiety; bipolar
-Cataracts
-Dementia
-GERD
-HTN
-Hypothyroid
-Tardive dyskinesia; pseudobulbar affect
-Bilateral blepharitis
-Atrial flutter
-Hemorrhoids
#Global
- DVT ppx: eliquis
- GI ppx: famotidine
- Diet: iddsi4
- Code: DNR/DNI
- Dispo: downgrade to tele
Subjective Dataa
Subjective Data
Date of Service:
Date of Service: November 23, 2024
Chief Complaint: Therapy Manager Follow Up
Subjective:
Sister at bedside says patient is a bit more out of it than usual this morning. However, he likely has sleep apnea and was with lower than typical respiratory movement overnight. This morning, breathing comfortably on room air with normal RR and
normal oxygen saturation. Says hilda, does not seem to be in any distress.
Review of Systems
General: Unobtainable - Pat Unresp
Objective Data
Data Reviewed
Vital Signs / I&O / Oxygen:
Vital Signs
Temp Pulse Resp BP Pulse Ox
98.8 F 100 19 141/68 93
11/23/24 03:29 11/23/24 08:00 11/23/24 08:00 11/23/24 08:00 11/23/24 08:00
Intake and Output
11/22/24 11/23/24 11/24/24
06:59 06:59 06:59
Intake Total 2767.8 / 2905.3 2696.25 / 2766.25 140 / 140
Output Total 1650 / 1650 1810 / 1810
Balance 1117.8 / 1255.3 886.25 / 956.25 140 / 140
SaO2 93
Physical Exam
General: Respiratory Distress (negative) and Comfortable
HEENT: Normocephalic and Anicteric
Cardiovascular: S1-S2
Respiratory: Non-Labored Respirations
GI: Soft, Non Distended and Non Tender
Neurology: Lethargic
Skin: Warm and Dry
Labs/Micro/Reports
Lab Data
11/23/24 04:29
11/23/24 04:29
Microbiology
11/20/24 14:52 Blood/Venous Blood Culture - Preliminary
Escherichia coli - ESBL
11/20/24 14:52 Blood/Venous Gram Stain - Final
11/20/24 15:44 Blood/Venous Blood Culture - Preliminary
Escherichia coli - ESBL
11/20/24 15:44 Blood/Venous Gram Stain - Final
11/21/24 15:57 Blood/Venous Blood Culture - Preliminary
No Growth in 24 hours- Final report to follow
11/20/24 20:11 Nose MRSA Screen - Final
Staph aureus MRSA
11/20/24 13:48 Urine Urine Culture - Final
No Significant Growth
--- NOTE | 2024-11-23 08:32 | W.PN.ID1 ---
Addendum entered and electronically signed by Avelino Crawford DO 11/23/24 09:50:
I personally saw and evaluated the patient. I reviewed the resident�s note and agree with findings and plan as documented in the resident�s note.
White count improved. Renal insufficiency/FERNANDO improving although slowly. Admitted off pressors.
De-escalate to once daily ertapenem dosed for current renal insufficiency.
Monitor repeat blood cultures.
Follow for clinical improvement.
Original Note:
Date of Service
Date of Service: November 23, 2024
Today's Communication
De-escalating from Meropenem to Ertapenem
Continue supportive measures
Assessment / Plan
#Clinical sepsis
#Bacteremia with ESBL E. coli
#Complicated urinary tract infection; possible pyelonephritis
#Lactic acidosis
-No fevers, clinically appearing better.
-Flat affect may be due to just waking up in the morning.
#Leukocytosis
-Trending down
#Hyponatremia
-Resolved
#FERNANDO
-Resolving
Intellectual disability (chronically nonverbal)
Tardive dyskinesia
A-fib (on Eliquis)
B12 deficiency
Ambulatory dysfunction
HTN
GERD
Constipation
BPH
Hypothyroidism
Recommendations:
ESBL E. coli identified, sensitives back
Will De-escalate from Meropenem to Ertapenem as per sensitivities
Repeat blood cultures negative
Continue to monitor white count and temperature curve.
Continue monitoring creatinine and dose abx as per creatinine clearance
Chief Complaint
-: Bacteremia
Subjective / Review of Systems
Patient seen this morning with sister present. Sister says that patient has been pretty lethargic and having a flat affect similar to how he presented when he first came in. Otherwise he is doing a lot better, off of the Levophed, blood pressure
has been stable. No other acute concerns related today.
Review of Systems: No Fever, No Chills, No Headache, No Chest Pain, No Abdominal Pain, No Nausea, No Vomiting and No Dysuria
Vital Signs / Physical Exam
Vital Signs
Vital Signs
Temp Pulse Resp BP Pulse Ox
98.8 F 100 19 141/68 93
11/23/24 03:29 11/23/24 08:00 11/23/24 08:00 11/23/24 08:00 11/23/24 08:00
Physical Exam
Constitutional: No Acute Distress, Comfortable and Chronically Ill
Head: Normocephalic
Cardiovascular: Regular Rate and S1/S2
Pulmonary: Clear and Non Labored
Gastrointestinal: Soft, Non Tender and Non Distended
Extremities: Negative Edema, Clubbing, Cyanosis or Erythema
Skin: Warm and Dry
Neurological: Awake and Alert
Psychological: Calm and Other (Mildly somnolent)
Objective Data
Lab Data
Lab Results
11/23/24 04:29
11/23/24 04:29
PT 30.1 Sec (11.4-14.6) H 11/21/24 15:57
INR 2.88 11/21/24 15:57
APTT 44.7 Sec (23.4-35.0) H 11/21/24 15:57
Estimated Creat Clear 27 ml/min 11/23/24 04:29
Lactic Acid Cancelled 11/22/24 06:00
Total Bilirubin 0.5 mg/dl (0.2-1.3) 11/23/24 04:29
AST 54 U/L (17-59) 11/23/24 04:29
ALT 28 U/L (0-50) 11/23/24 04:29
Alkaline Phosphatase 126 U/L (38-126) 11/23/24 04:29
Most recent labs reviewed.
Microbiology: Report Reviewed
Micro Results:
11/20/24 14:52 Blood Culture - Preliminary
Blood/Venous Escherichia coli - ESBL
Gram Stain - Final
11/20/24 15:44 Blood Culture - Preliminary
Blood/Venous Escherichia coli - ESBL
Gram Stain - Final
11/21/24 15:57 Blood Culture - Preliminary
Blood/Venous No Growth in 24 hours- Final report to follow
11/20/24 20:11 MRSA Screen - Final
Nose Staph aureus MRSA
11/20/24 13:48 Urine Culture - Final
Urine No Significant Growth
Imaging:
11/21/2024 CT abdomen/pelvis without contrast: bilateral perinephric stranding with mild to moderate bilateral hydroureter without overt obstructive uropathy. Findings may reflect ascending urinary tract infection. Focal urinary bladder wall
thickening suspicious for neoplasm. Please see full dictation for additional detail.
CT Scan: Report Reviewed
[2024-11-23] MEDS: BUSPAR 15 MG PO ×2 (08:34→20:17)
[2024-11-23] MEDS: MIRALAX 17 GRAMS PO (08:37)
[2024-11-23] MEDS: ELIQUIS 5 MG PO ×2 (08:37→20:17)
[2024-11-23] MEDS: MURO 5% OPHTHALMIC OINTMENT 1 APPLIC RIGHT EYE ×2 (08:41→20:19)
--- NOTE | 2024-11-23 09:19 | PTCARENOTE ---
Pt rec'd from night RN this am 07:15, sleeping. Pt awakened around 0900, plan discussed with care team and sister at bedside. Pt drowsy, arousable, one word responses, (baseline) and cooperative with all cares. Quiet, childlike demeanor. Pt took all
medications crushed in applesauce and drank miralax with straw, no issues with swallowing. Pt did not meet parameters for Midodrine administration this am due to SBP of 141. Dr. Arvizu stated that pt will be downgraded from ICU level of care,
will stop IVF, and enc oob. VSS, safe environment ongoing. Call moon in reach.
[2024-11-23 11:28] LABS: Glycohemoglobin (HgbA1c) 5.4 % (4.0-5.6)
--- NOTE | 2024-11-23 11:57 | W.PN.NEPH.PH ---
Today's Communication / Plan
-
Maintain Chen catheter
Assessment/Plan
-
Impression:
Sepsis/gram-negative devi bacteremia suspected due to underlying UTI
Acute kidney injury
Nongap metabolic acidosis
Hyponatremia
Possible underlying bladder neoplasm and/or obstruction with perinephric stranding on CT
Paroxysmal atrial fibrillation
Intellectual disability
Hypothyroidism
Bipolar anxiety depression
GERD
Plan:
Acuity likely due to strong prerenal stimulus in setting of septic physiology with hemodynamic compromise in the setting of E. coli ESBL bacteremia
- Maintain alkaline IV fluids in setting of nongap metabolic acidosis and pressor support to keep MAP at 65 or greater
-Holding antihypertensives
Continue Chen catheter placement for possible underlying obstructive component and will likely need urological follow-up for possible bladder mass noted on CT (but will defer to ),
- No acute dialysis requirement
Nonoliguric
Renal dose all medications for appropriate GFR
Discussed with the sister at bedside
Creatinine stable at 2
-
-
Date of Service: November 23, 2024
CC / HPI / ROS
-
Chief Complaint:
FERNANDO
History of Present Illness:
Acute kidney injury septic shock on pressors
Review of Systems:
Patient responsive awake lethargic
Chen nonoliguric
Labs
-
Labs:
WBC 11.8 10^3/uL (4.8-10.8) H 11/23/24 04:29
RBC 2.95 10^6/uL (4.70-6.10) L 11/23/24 04:29
Hgb 9.3 g/dL (13.0-18.0) L 11/23/24 04:29
Hct 26.5 % (39.0-52.0) L 11/23/24 04:29
Plt Count 208 10^3/uL (130-400) 11/23/24 04:29
Sodium 138 mmol/L (135-145) 11/23/24 04:29
Potassium 4.6 mmol/L (3.5-5.1) D 11/23/24 04:29
Chloride 108 mmol/L (98-107) H 11/23/24 04:29
Carbon Dioxide 24 mmol/L (22-30) 11/23/24 04:29
BUN 37 mg/dl (9-20) H 11/23/24 04:29
Creatinine 2.0 mg/dL (0.7-1.3) H 11/23/24 04:29
eGFR 35.91 11/23/24 04:29
Glucose 116 mg/dl (70-99) H 11/23/24 04:29
Calcium 8.9 mg/dl (8.4-10.2) 11/23/24 04:
Phosphorus 2.6 mg/dl (2.5-4.5) 11/23/24 04:29
Albumin 2.4 g/dl (3.5-5.0) L 11/23/24 04:29
Physical Exam
-
Vital Signs:
Vital Signs
Temp Pulse Resp BP Pulse Ox
98.3 F 87 23 114/58 96
11/23/24 08:00 11/23/24 10:00 11/23/24 10:00 11/23/24 10:00 11/23/24 10:00
Respiratory:: Bilateral: Coarse
Lung Excursion:: Normal
Abdomen:: Soft
Bowel Sounds:: Normal
Extremity Edema:: None: Bilateral:
[2024-11-23] MEDS: INVANZ 55 MG IV (12:27)
--- NOTE | 2024-11-23 13:03 | W.PN.HOSP.TC ---
Today's Communication/Plan
-
PT/OT
d/c planning
cont ertapenem for now
Assessment / Plan
Assessment / Plan
pt is a 68 year old male
Septic shock with lactic acidosis secondary to ESBL bacteremia with prersumed UTI even if urine culture no growth--resolved--CT scan with ascending UTI findings with possible bladder neoplasm--WBC count improving--repeat blood cultures negative
--IVF and pressors off-- apprec float nurse--changed rocephin to cefepime and now on ertapenem--apprec ID--would cont flomax---Tylenol as needed fever
anemia--HGB dropped from 12 to 9 and stabilized--suspect dilutional from IVF--no bleeding noted
Essential HTN�-Hold lisinopril 5 mg daily, restart metoprolol succinate 25 mg daily--creat not yet at baseline
FERNANDO in setting of septic shock/UTI/History of urinary retention/BPH status post TURP 2019--apprec renal--creat 3.3 and down to 2.0 but baseline 0.7 in 06/2024- Renal/bladder ultrasound WNL-- hold lisinopril due to FERNANDO--cont joel with flomax
Acute hyponatremia likely hypovolemic--sodium 131--apprec renal--cont IVF-- TSH WNL, cortisol WNL--resolved
Intellectual disability/autism since age 3--Chronic nonverbal since age 3 except will say 1 word at a time asking for things--Pseudobulbar affect/tardive dyskinesia
Paroxysmal A-fib--Patient on Eliquis
Hypothyroidism--TSH WNL--Continue levothyroxine 75 mcg p.o. daily
Bipolar disorder/anxiety/depression--Continue BuSpar 15 mg p.o. twice daily, mirtazapine 30 mg at bedtime
GERD--History of esophageal dilation 2009--Continue famotidine 20 mg twice daily
History of constipation--Continue docusate sodium 100 mg twice daily as needed if no bowel movement by secondary
vitamin B12 deficiency--cont supplement
esophageal dilation 2009--aspiration pneumo
positive MRSA screen
DVT prophylaxis--Eliquis
code status--spoke with sister this AM--DNR/DNI
transfer to med/surg
Anticipated Discharge: 24 - 48 hours
Subjective/Interval History
-
Date of Service: November 23, 2024
pt doing better--off pressors since midnight
Objective Data
-
Labs:
Laboratory Results
11/23/24
04:29
WBC 11.8 H
Hgb 9.3 L
Hct 26.5 L
Plt Count 208
Sodium 138
Potassium 4.6 D
Chloride 108 H
Carbon Dioxide 24
BUN 37 H
Creatinine 2.0 H
Glucose 116 H
Calcium 8.9
Total Bilirubin 0.5
AST 54
ALT 28
Alkaline Phosphatase 126
Vital Signs:
max temp for 24 hours
11/23/24
03:29
Temp 98.8 F
Vital Signs
Temp Pulse Resp BP Pulse Ox
97.9 F 87 19 123/59 96
11/23/24 12:18 11/23/24 12:00 11/23/24 12:00 11/23/24 12:00 11/23/24 12:00
I&O
11/22/24 11/23/24 11/24/24
06:59 06:59 06:59
Intake Total 2767.8 / 2905.3 2696.25 / 2766.25 849 / 849
Output Total 1650 / 1650 1810 / 1810 325 / 325
Balance 1117.8 / 1255.3 886.25 / 956.25 524 / 524
Review of Systems
-
All other systems: Reviewed and negative
Physical Exam
-
General: Well Developed, Well Nourished and No Apparent Distress
HEENT: Normocephalic and Atraumatic; Negative Oxygen
Respiratory: Clear to Auscultation; Negative Wheezes or Rhonchi
Cardiac: Regular Rhythm and S1/S2; Negative Murmur
GI: Soft, Nontender, Nondistended and Normal Bowel Sounds
Musculoskeletal: No Clubbing, No Cyanosis and No Edema
Neuro: Awake
Psych: Calm
--- NOTE | 2024-11-23 14:36 | CM ---
Addendum entered by Ivon Wright 11/23/24 16:15:
[facility] [place] staff to come tomorrow to do assessment and will be material control associate available thru [phone] if needed over weekend.
Original Note:
Patient seen at bedside in ICU with physician. Patient doing better per nursing. Patient possible for transfer out of unit today. [facility] [place] phone number is [phone]; left requesting call back to confirm [facility] VN/PT prior to admission and plan
for discharge home. CM called to Izaiah Mejía at [phone]. VM left. CM will send referral to [facility] for [facility] pending therapy continued recommendation for home health. CM will continue to follow for discharge planning needs.
Plan; home [facility] with [facility] vs SNF; pending therapy recommendations.
--- NOTE | 2024-11-23 17:44 | PTCARENOTE ---
Report called to [address] [place] [facility], pt will be transfered to [id number] when room is cleaned.
--- NOTE | 2024-11-23 18:43 | PTCARENOTE ---
Patient arrived from ICU. Assisted x2 in chair. VS documented. Bed and chair alarm in place. call moon within reach. Plan of care ongoing. No s/s of distress noted at this time.
[2024-11-23] MEDS: PEPCID 20 MG PO (20:18)
[2024-11-23] MEDS: FLOMAX 0.4 MG PO (20:18)
[2024-11-23] MEDS: REMERON 30 MG PO (21:33)
[2024-11-23] MEDS: ERYTHROMYCIN 0.5% OPHTHALMIC OINTMENT 1 APPLIC BOTH EYES (21:33)
[2024-11-24] MEDS: SYNTHROID 75 MCG PO (05:36)
[2024-11-24 06:00] VITALS: BMI 27.7
[2024-11-24 06:16] LABS: Hematocrit 28.6 % (39.0-52.0); Hemoglobin 9.5 g/dL (13.0-18.0); Mean Corp Hgb Conc. 33.2 g/dL (33.0-37.0); Mean Corpuscular Volume 91.4 fL (80.0-94.0); Nucleated Red Blood Cells % 0 % (-); Platelet Count 209 10^3/uL (130-400); Red Cell Dist. Width 13.5 % (11.5-14.5)
[2024-11-24 06:39] LABS: ALT (SGPT) 55 U/L (0-50); AST (SGOT) 75 U/L (17-59); Albumin 2.6 g/dl (3.5-5.0); Alkaline Phosphatase 160 U/L (38-126); Blood Urea Nitrogen 35 mg/dl (9-20); Calcium 8.8 mg/dl (8.4-10.2); Carbon Dioxide 25 mmol/L (22-30); Chloride 107 mmol/L (98-107); Estimated Creatinine Clearance 31 ml/min; Glucose 96 mg/dl (70-99); Magnesium 1.9 mg/dl (1.6-2.3); Potassium 5.0 mmol/L (3.5-5.1); Sodium 136 mmol/L (135-145); Total Protein 5.3 g/dl (6.3-8.2); eGFR 43.64
[2024-11-24 07:00] VITALS: BP 127/60
[2024-11-24] MEDS: BUSPAR 15 MG PO ×2 (08:27→20:08)
[2024-11-24] MEDS: ELIQUIS 5 MG PO ×2 (08:27→20:08)
[2024-11-24] MEDS: TOPROL XL 25 MG PO (08:28)
[2024-11-24] MEDS: FLOMAX 0.4 MG PO ×2 (08:28→20:08)
[2024-11-24] MEDS: MURO 5% OPHTHALMIC OINTMENT 1 APPLIC RIGHT EYE ×2 (08:31→20:09)
[2024-11-24] MEDS: MIRALAX 17 GRAMS PO (08:31)
--- NOTE | 2024-11-24 08:38 | W.PN.ID1 ---
Addendum entered and electronically signed by Saba Hill MD 11/24/24 12:31:
I saw and evaluated the patient. I reviewed the resident�s note and agree with findings and plan as documented in the resident�s note.
Caregiver and nephew in room.
Pt feeling better.
A/P:
# Complicated UTI with ESBL-Ecoli bacteremia
# s/p septic shock
# FERNANDO improving
- Continue Ertapenem 1g IV q24 x 14d through
- Follow weekly CBC, CMP while on abx.
- Place midline
- Infusion sheet submitted to community case manager.
Original Note:
Date of Service
Date of Service: November 24, 2024
Today's Communication
Continuing Ertapenem 14 day total course
Ordering Midline
Assessment / Plan
#Clinical sepsis
#Bacteremia with ESBL E. coli
#Complicated urinary tract infection; possible pyelonephritis
#Lactic acidosis
-No fevers, clinically appearing better.
#Leukocytosis
-Resolved
#Hyponatremia
-Resolved
#FERNANDO
-Improving further
Intellectual disability (chronically nonverbal)
Tardive dyskinesia
A-fib (on Eliquis)
B12 deficiency
Ambulatory dysfunction
HTN
GERD
Constipation
BPH
Hypothyroidism
Recommendations:
-ESBL E. coli identified, sensitives back
-Continuing Ertapenem (Day 4 Carbapenem treatment) as per sensitivities
-Repeat blood cultures negative
-14 day total course of Ertapenem
-Continue to monitor white count and temperature curve.
-Continue monitoring creatinine and dose abx as per creatinine clearance
Chief Complaint
-: Bacteremia
Subjective / Review of Systems
Patient seen while he was sitting in the chair, as per sister he has been feeling a little bit better. A little more awake today than yesterday. Overall has no complaints except for right upper extremity swelling without any pain. No difficulty
breathing, chest pain, lower extremity pain or any nausea or vomiting.
Review of Systems: No Fever, No Chills, No Headache, No Chest Pain, No Abdominal Pain, No Nausea, No Vomiting and No Dysuria
Vital Signs / Physical Exam
Vital Signs
Vital Signs
Temp Pulse Resp BP Pulse Ox
97.9 F 79 18 94/60 97
11/23/24 23:00 11/23/24 23:00 11/23/24 23:00 11/23/24 23:00 11/24/24 02:03
Physical Exam
Constitutional: No Acute Distress, Comfortable and Chronically Ill
Head: Normocephalic
Cardiovascular: Regular Rate and S1/S2
Pulmonary: Clear and Non Labored
Gastrointestinal: Soft, Non Tender and Non Distended
Genito-Urinary: Chen; Negative CVA Tenderness
Extremities: Edema (Right upper extremity edema, no tenderness or pain. Pulses in tact); Negative Clubbing, Cyanosis or Erythema
Skin: Warm and Dry
Neurological: Awake and Alert
Psychological: Calm
Objective Data
Lab Data
Lab Results
11/24/24 05:54
11/24/24 05:54
PT 30.1 Sec (11.4-14.6) H 11/21/24 15:57
INR 2.88 11/21/24 15:57
APTT 44.7 Sec (23.4-35.0) H 11/21/24 15:57
Estimated Creat Clear 31 ml/min 11/24/24 05:54
Lactic Acid Cancelled 11/22/24 06:00
Total Bilirubin 0.5 mg/dl (0.2-1.3) 11/24/24 05:54
AST 75 U/L (17-59) H 11/24/24 05:54
ALT 55 U/L (0-50) H 11/24/24 05:54
Alkaline Phosphatase 160 U/L (38-126) H 11/24/24 05:54
Most recent labs reviewed.
Micro Results:
11/21/24 15:57 Blood Culture - Preliminary
Blood/Venous No Growth in 48 hours- Final report to follow
11/20/24 15:44 Blood Culture - Final
Blood/Venous Escherichia coli - ESBL
Gram Stain - Final
11/20/24 14:52 Blood Culture - Final
Blood/Venous Escherichia coli - ESBL
Gram Stain - Final
11/20/24 20:11 MRSA Screen - Final
Nose Staph aureus MRSA
11/20/24 13:48 Urine Culture - Final
Urine No Significant Growth
Imaging:
11/21/2024 CT abdomen/pelvis without contrast: bilateral perinephric stranding with mild to moderate bilateral hydroureter without overt obstructive uropathy. Findings may reflect ascending urinary tract infection. Focal urinary bladder wall
thickening suspicious for neoplasm. Please see full dictation for additional detail.
--- NOTE | 2024-11-24 08:40 | CM ---
Addendum entered by Ivon Wright 11/24/24 15:27:
Following extensive discussions. Patient will be going home with patient sister to [place] with [facility] providing IV antibiotic supports and [facility] providing the medications for delivery tomorrow pm. Patient nephew was given teaching with patient
mother on video call watching. Patient will need IMM to review with patient nephew and sister. Patient for transport home with family tomorrow. CM will continue to follow for discharge planning needs.
Plan; home to sister in [place]; [address] Michael Arshad with [facility]/ and [facility]
Original Note:
Patient moved to [address] [place], Patient now for IV antibiotics per ID. CM called to [facility] and left message for Liaison and requested call back to confirm agency that they would like to use. CM will continue to follow for discharge planning needs.
Plan; return to [facility] halfway; IV antibiotics vs SNF
--- NOTE | 2024-11-24 09:43 | W.PN.HOSP.TC ---
Today's Communication/Plan
-
US arm
D/C planning
IV ertapenem through 12/04/24
Assessment / Plan
Assessment / Plan
pt is a 68 year old male
Septic shock with lactic acidosis secondary to ESBL bacteremia with prersumed UTI even if urine culture no growth--resolved--CT scan with ascending UTI findings with possible bladder neoplasm--WBC count improving--repeat blood cultures negative
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
swollen right arm--PICC arm--check US
anemia--HGB dropped from 12 to 9 and stabilized--suspect dilutional from IVF--no bleeding noted
Essential HTN�-Hold lisinopril 5 mg daily, restart metoprolol succinate 25 mg daily--creat not yet at baseline
FERNANDO in setting of septic shock/UTI/History of urinary retention/BPH status post TURP 2019--apprec renal--creat 3.3 and down to 2.0 but baseline 0.7 in 06/2024- Renal/bladder ultrasound WNL-- hold lisinopril due to FERNANDO--cont joel with flomax
Acute hyponatremia likely hypovolemic--sodium 131--apprec renal--cont IVF-- TSH WNL, cortisol WNL--resolved
Intellectual disability/autism since age 3--Chronic nonverbal since age 3 except will say 1 word at a time asking for things--Pseudobulbar affect/tardive dyskinesia
Paroxysmal A-fib--Patient on Eliquis
Hypothyroidism--TSH WNL--Continue levothyroxine 75 mcg p.o. daily
Bipolar disorder/anxiety/depression--Continue BuSpar 15 mg p.o. twice daily, mirtazapine 30 mg at bedtime
GERD--History of esophageal dilation 2009--Continue famotidine 20 mg twice daily
History of constipation--Continue docusate sodium 100 mg twice daily as needed if no bowel movement by secondary
vitamin B12 deficiency--cont supplement
esophageal dilation 2009--aspiration pneumo
positive MRSA screen
DVT prophylaxis--Eliquis
code status--spoke with sister this AM--DNR/DNI
d/c planning
Anticipated Discharge: Within 24 hours
Subjective/Interval History
-
Date of Service: November 24, 2024
pt sitting in the chair--more awake
Objective Data
-
Labs:
Laboratory Results
11/24/24
05:54
WBC 10.5
Hgb 9.5 L
Hct 28.6 L
Plt Count 209
Sodium 136
Potassium 5.0
Chloride 107
Carbon Dioxide 25
BUN 35 H
Creatinine 1.7 H
Glucose 96
Calcium 8.8
Total Bilirubin 0.5
AST 75 H
ALT 55 H
Alkaline Phosphatase 160 H
Vital Signs:
max temp for 24 hours
11/23/24
15:48
Temp 98.8 F
Vital Signs
Temp Pulse Resp BP Pulse Ox
99.1 F 92 16 127/60 94
11/24/24 07:00 11/24/24 08:28 11/24/24 07:00 11/24/24 08:28 11/24/24 07:00
I&O
11/23/24 11/24/24 11/25/24
06:59 06:59 06:59
Intake Total 2696.25 / 2766.25 1779 / 1779
Output Total 1810 / 1810 2600 / 2600
Balance 886.25 / 956.25 -821 / -821
Review of Systems
-
All other systems: Reviewed and negative
Physical Exam
-
General: Well Developed, Well Nourished and No Apparent Distress
HEENT: Normocephalic and Atraumatic
Respiratory: Clear to Auscultation; Negative Wheezes or Rhonchi
Cardiac: Regular Rhythm and S1/S2; Negative Murmur
GI: Soft, Nontender, Nondistended and Normal Bowel Sounds
Musculoskeletal: No Clubbing and No Cyanosis; Negative No Edema (swelling right arm--PICC in right arm)
Skin: Warm
Neuro: Awake
Psych: Calm
--- NOTE | 2024-11-24 09:52 | W.PN.NEPH.PH ---
Today's Communication / Plan
-
Follow BMP
Holding antihypertensive
Assessment/Plan
-
Impression:
Sepsis/gram-negative devi bacteremia suspected due to underlying UTI
Acute kidney injury
Nongap metabolic acidosis
Hyponatremia
Possible underlying bladder neoplasm and/or obstruction with perinephric stranding on CT
Paroxysmal atrial fibrillation
Intellectual disability
Hypothyroidism
Bipolar anxiety depression
GERD
Plan:
Acuity likely due to strong prerenal stimulus in setting of septic physiology with hemodynamic compromise in the setting of E. coli ESBL bacteremia
-Creatinine improved down to 1.7, remains grossly
-Holding antihypertensives, patient still hypotensive
Continue Chen catheter placement for possible underlying obstructive component and will likely need urological follow-up for possible bladder mass noted on CT (but will defer to ),
- No acute dialysis requirement
-
-
Date of Service: November 24, 2024
CC / HPI / ROS
-
Chief Complaint:
FERNANDO
History of Present Illness:
Acute kidney injury septic shock on pressors
Remains on ertapenem for bacteremia (ESBL)
Review of Systems:
Patient responsive awake lethargic
Chen nonoliguric
Labs
-
Labs:
WBC 10.5 10^3/uL (4.8-10.8) 11/24/24 05:54
RBC 3.13 10^6/uL (4.70-6.10) L 11/24/24 05:54
Hgb 9.5 g/dL (13.0-18.0) L 11/24/24 05:54
Hct 28.6 % (39.0-52.0) L 11/24/24 05:54
Plt Count 209 10^3/uL (130-400) 11/24/24 05:54
Sodium 136 mmol/L (135-145) 11/24/24 05:54
Potassium 5.0 mmol/L (3.5-5.1) 11/24/24 05:54
Chloride 107 mmol/L (98-107) 11/24/24 05:54
Carbon Dioxide 25 mmol/L (22-30) 11/24/24 05:54
BUN 35 mg/dl (9-20) H 11/24/24 05:54
Creatinine 1.7 mg/dL (0.7-1.3) H 11/24/24 05:54
eGFR 43.64 11/24/24 05:54
Glucose 96 mg/dl (70-99) 11/24/24 05:54
Calcium 8.8 mg/dl (8.4-10.2) 11/24/24 05:54
Phosphorus 2.6 mg/dl (2.5-4.5) 11/23/24 04:29
Albumin 2.6 g/dl (3.5-5.0) L 11/24/24 05:54
Physical Exam
-
Vital Signs:
Vital Signs
Temp Pulse Resp BP Pulse Ox
99.1 F 92 16 127/60 94
11/24/24 07:00 11/24/24 08:28 11/24/24 07:00 11/24/24 08:28 11/24/24 07:00
Respiratory:: Bilateral: Coarse
Lung Excursion:: Normal
Abdomen:: Soft
Bowel Sounds:: Normal
Extremity Edema:: None: Bilateral:
Chen Catheter: Yes
[2024-11-24] MEDS: INVANZ 55 MG IV (13:30)
[2024-11-24 15:00] VITALS: BP 121/64
--- NOTE | 2024-11-24 17:23 | W.DCSUMMARY ---
Discharge Summary
Discharge Data
Date of Admission: 11/20/24
Date of Discharge: 11/25/24
-
Pending Results: No
Hospital Course
Primary care physician : Bryan Cardona
Principal Discharge diagnosis : Septic shock with lactic acidosis secondary to ESBL E. coli bacteremia with presumed urinary tract infection, acute kidney injury with benign prostatic hyperplasia/urinary retention/possible bladder mass, acute
hyponatremia, brachial DVT in the right arm
Chronic Discharge diagnosis : Essential hypertension, intellectual disability/autism since age 3, paroxysmal atrial fibrillation, hypothyroidism, bipolar disorder/anxiety/depression, gastroesophageal reflux disease, vitamin B12 deficiency, history
of constipation, positive MRSA screen
Hospital Course : Patient was a 68-year-old male from a long term who is noted to be lethargic, weak, and tired more than usual. He was noted to be febrile on admission of 202.9 and hypotensive with blood pressures 90s over 30s. Workup in the
emergency department revealed him to have a urinary tract infection, hyponatremia and acute kidney injury. Has a history of urinary retention and BPH with a TURP in 2019. Patient was admitted.
Problem #1: Septic shock with lactic acidosis secondary to ESBL E. coli bacteremia with presumed urinary tract infection. Patient was admitted to the intensive care unit and seen by the pigment processor, assistant warehouse manager, and infectious disease. CAT scan
of the abdomen and pelvis showed a ascending urinary tract infection findings with possible bladder neoplasm. Patient's white blood cell count was 25,000 and he was started on IV fluids, pressors, and broad-spectrum antibiotics. White count has
returned to normal. Urinalysis was positive. Blood cultures showed ESBL E. coli with repeat cultures negative. Urine culture showed no significant growth. Also of note, patient's MRSA screen was positive. Antibiotics were changed from Rocephin
to cefepime and then to meropenem with final decision on ertapenem daily through December 04, 2024. Patient was weaned off pressors and repeat blood cultures were negative as mentioned.
Problem #2: Acute kidney injury with benign prostatic hyperplasia/urinary retention/possible bladder mass. Patient's creatinine was 3.3 on admission and down to approximately 1.7 however his baseline is 0.7 and he is not yet there. Joel catheter
was placed. Renal and bladder ultrasound were within normal limits. Medications that were nephrotoxic were held. Joel catheter was placed and Flomax was started. Urology was consulted. Patient did have a cystoscopy in 2022 and at that time no
bladder pathology was noted. Patient will be discharged home with a Joel catheter to drainage and he will likely require a long-term indwelling catheter due to his inability to perform chronic intermittent catheterizations. Recommendations are to
follow up in 1 month for catheter change and cystoscopy. Creatinine continues to improve but is not yet at baseline.
Problem #3: Acute hyponatremia. Sodium on admission was 131. This was thought to be due to to hypovolemic hyponatremia. He was continued on IV fluids. Renal was consulted. TSH and cortisol were within normal limits. Sodium has returned to
baseline.
Problem #4: Brachial DVT in the right arm. Ultrasound shows nonocclusive clot along the midline/PICC line. This has been removed from the right arm with replacement of a midline to the left arm to complete his course of antibiotics through November
2024.
Problem #5: All other medical issues. These include Essential hypertension, intellectual disability/autism since age 3, paroxysmal atrial fibrillation, hypothyroidism, bipolar disorder/anxiety/depression, gastroesophageal reflux disease, vitamin
B12 deficiency, history of constipation, positive MRSA screen. These medical issues were stable during his hospitalization. Medications were continued as able.
Patient is stable to go to his sisters house to complete his IV antibiotics prior to him returning to his long term. If there are any questions regarding this dictation or his hospital stay, please not hesitate to call. Our office number is
[phone].
Time for discharge 42 minutes.
Important imaging findings :
CT SCAN ABDOMEN/PELVIS IMPRESSION:
Bilateral perinephric stranding with mild to moderate bilateral hydroureter without overt obstructive uropathy. Findings may reflect ascending urinary tract infection.
Focal urinary bladder wall thickening suspicious for neoplasm, new from prior. Recommend direct visualization.
RENAL US IMPRESSION: Normal sonographic appearance of both kidneys.
Joel catheter is present within the bladder and the bladder is decompressed.
PERIPHERAL US FINDINGS/IMPRESSION:
Nonocclusive thrombus in the mid brachial vein along the course of the peripheral catheter.
The right internal jugular, subclavian, axillary, basilic, and cephalic veins are patent.
Discharge Plan
-
Patient Disposition: Home with Home Care
Discharge Diagnosis/Procedures: Septic shock with lactic acidosis secondary to ESBL Escherichia coli presumed urinary tract infection, anemia, essential hypertension, acute kidney injury in the setting of septic shock with urinary retention, benign
prostatic hyperplasia and possible bladder mass, acute hyponatremia, intellectual disability/autism, paroxysmal atrial fibrillation, hypothyroidism, bipolar disorder/anxiety/depression, gastroesophageal reflux disease, history of constipation,
vitamin B12 deficiency, positive MRSA screen
Condition: Good
Diet: Other diet
Additional Diets: Pur�ed diet with thin liquids
Activity: As tolerated
Driving Restrictions: No driving
Bathing Restrictions: None
Other Services: VN, PT and OT
Activity Restrictions/Additional Instructions:
joel catheter to stay in at discharge
Referrals:
Bryan Cardona DO [Non-Admitting Privileges, Internal Medicine] - in less than 1 week
Jhonny Garcia DO [Active, Nephrology] - in two to three weeks
Edin Trujillo MD [Active, Urology] - in one month
Prescriptions:
No Action
loperamide 2 MG capsule
2 mg PO Q4HPRN PRN (Reason: loose stool)
famotidine [Acid Controller] 20 MG tablet
20 mg PO BID
magnesium hydroxide 30 ML suspension
30 ml PO [id number] PRN (Reason: constipation)
tamsulosin 0.4 MG capsule
0.4 mg PO BID
mirtazapine 30 MG tablet
30 mg PO HS
lisinopril 5 MG tablet
5 mg PO DAILY
buspirone 15 MG tablet
15 mg PO BID
ketoconazole 2 % shampoo
1 applic TOPICAL MOTH
dextromethorphan-guaifenesin [Chest Congestion Relief DM] 10-100 mg/5 mL Syrup
10 ml PO Q6HPRN PRN (Reason: cough/congestion)
sodium chloride [Stacey 128] 5 % ointment
1 applic RIGHT EYE BID
Debrox 6.5 % Drops
4 drp EACH EAR MONTHLY
Rx Instructions:
Instill 4 drps in both ears at bedtime on the 1st day of each month
metoprolol succinate 25 mg tablet extended release 24 hr
25 mg PO DAILY
olopatadine 0.2 % Drops
1 drp BOTH EYES DAILYPRN PRN (Reason: allergic symptoms/itching)
Desitin Daily Defense 13 % Cream
1 applic TOPICAL DAILYPRN PRN (Reason: apply to groin/buttocks)
Nuedexta 20-10 mg capsule
1 cap PO DAILY
apixaban 5 mg Tablet
5 mg PO BID
acetaminophen 325 mg Tablet
650 mg PO Q4HPRN PRN (Reason: MILD pain, headache, temp>100.4)
erythromycin 5 mg/gram (0.5 %) ointment
1 applic BOTH EYES HS
Rx Instructions:
1/2 INCH RIBBON INTO LOWER EYELID OF BOTH EYES
levothyroxine [Synthroid] 75 mcg Tablet
75 mcg PO DAILY
triamcinolone acetonide 0.1 % Ointment
1 applic TOPICAL BIDPRN PRN (Reason: RASH)
Hemorrhoidal 0.25-3-12 % Cream
1 applic MN Q4HPRN PRN (Reason: HEMORRHOIDAL)
Triple Antibiotic 3.5-400-5,000 ze-illi-snkl Ointment In Packet
1 applic TOPICAL BIDPRN PRN (Reason: RASH)
Triple Antibiotic 3.5-400-5,000 tx-phop-oxon Ointment In Packet
1 applic TOPICAL QIDPRN PRN (Reason: SCRAPES,ABRASIONS)
docusate sodium 50 mg/5 mL liquid
100 mg PO BIDPRN PRN (Reason: IF NO BM BY 2ND DAY)
sennosides [senna] 8.6 mg tablet
17.2 mg PO HSPRN PRN (Reason: IF NO BM BY 3RD DAY)
bisacodyl 10 mg suppository
10 mg MN DAILYPRN PRN (Reason: IF NO BM BY 4TH DAY)
polyethylene glycol 3350 17 gram/dose powder
17 g PO DAILY
Discharge Date and Time
Print Language: FAROESE
--- NOTE | 2024-11-24 18:37 | PTCARENOTE ---
Bed alarm went off. Patient's sister had gotten him from the bed to the chair. Sister was reattaching joel bag tubing to the joel catheter with her bare hands.
--- NOTE | 2024-11-24 19:27 | PTCARENOTE ---
patient with r arm midline, +dvt. per , midline removed. no bleeding noted. mad request for midline to be placed in L arm for 10 days abx. pt uncooperative with staff assisting and family attempting to soothe patient. unsafe at this time to
attempt to place midline. md manley aware and gilberto SHOOK. per md manley, attempt placement tomorrow. pt resting, family at bedside
[2024-11-24] MEDS: REMERON 30 MG PO (21:25)
[2024-11-24] MEDS: ERYTHROMYCIN 0.5% OPHTHALMIC OINTMENT 1 APPLIC BOTH EYES (21:25)
[2024-11-24 23:06] VITALS: BP 132/70
[2024-11-25] MEDS: SYNTHROID 75 MCG PO (05:19)
[2024-11-25 06:00] VITALS: BMI 27.3
[2024-11-25 07:00] VITALS: BP 102/58
--- NOTE | 2024-11-25 07:32 | W.PN.HOSP.TC ---
Today's Communication/Plan
-
see plan
Assessment / Plan
Assessment / Plan
Gen: NAD, Awake and alert
Eyes: EOMI, PERRLA, no scleral icterus.
Neck: supple.
CV: RRR, +S1/S2, no m/r/g.
Resp: CTAB, no rales, wheezes, or rhonchi.
Abd: +BS, soft, NT, ND
Skin: No rashes.
Neuro: CN 2-12 intact, non-focal.
Psych: Normal mood and affect.
11/21/24 15:57 Blood/Venous Blood Culture - Preliminary
No Growth in 72 hours- Final report to follow
11/20/24 15:44 Blood/Venous Blood Culture - Final
Escherichia coli - ESBL
11/20/24 15:44 Blood/Venous Gram Stain - Final
11/20/24 14:52 Blood/Venous Blood Culture - Final
Escherichia coli - ESBL
11/20/24 14:52 Blood/Venous Gram Stain - Final
11/20/24 20:11 Nose MRSA Screen - Final
Staph aureus MRSA
11/20/24 13:48 Urine Urine Culture - Final
No Significant Growth
CT A/P: Bilateral perinephric stranding with mild to moderate bilateral hydroureter without overt obstructive uropathy. Findings may reflect ascending urinary tract infection. Focal urinary bladder wall thickening suspicious for neoplasm, new from
prior. Recommend direct visualization.
RUE U/S: Nonocclusive thrombus in the mid brachial vein along the course of the peripheral catheter. The right internal jugular, subclavian, axillary, basilic, and cephalic veins are patent.
Renal U/S: Normal sonographic appearance of both kidneys. Joel catheter is present within the bladder and the bladder is decompressed.
Septic shock:
-CT A/P above
-secondary to ESBL bacteremia with presumed UTI (even if UCx NG)
-was on vasopressors, now off
-repeat BCxs NG
-s/p IVFs (lactic acidosis resolved)
-lactic acidosis and leukocytosis have resolved
-cont Invanz through 12/04/24 as per ID
Focal urinary bladder wall thickening:
-concern for neoplasm
-pt seen by urology
-for joel catheter change and cystoscopy in 1 month
Acute RUE DVT:
-imaging above
-currently on Eliquis for PAF
-c/s heme with question of whether this is an Eliquis failure
FERNANDO:
-due to septic shock in the setting of urinary retention/BPH s/p TURP 2019
-Renal U/S unremarkable
-renal saw in c/s
-ACEi on hold
Normocytic anemia:
-drop in Hb was dilutional
-check Fe/TIBC/ferritin
Other problems:
Essential HTN: cont BB
Hyponatremia, resolved
Intellectual disability/autism since age 3: Chronically nonverbal since age 3 except will say 1 word at a time asking for things, Pseudobulbar affect/tardive dyskinesia
PAF: Cont Eliquis/BB (noting Eliquis may need to be replaced as above)
Hypothyroidism: Cont levothyroxine
Bipolar disorder/anxiety/depression: cont BuSpar/mirtazapine
GERD: cont Pepcid
h/o esophageal dilation 2009
Eliquis/DNR/DNI
Total time spent on today's encounter was 50 minutes which included time spent in counseling the patient/family regarding diagnosis and treatment plan as listed above, goals of care, and symptom management. Case was discussed with nursing staff,
specialists, and care coordinators/case management. All labs and imaging personally reviewed by me. Remainder the time spent in detailed review of previous records, lab data, imaging, and other medical provider documentation.
Anticipated Discharge: Within 24 hours
Subjective/Interval History
-
Date of Service: November 25, 2024
Pt unable to provide subjective hx due to intellectual disability.
Objective Data
-
Labs:
Laboratory Results
11/25/24
06:51
WBC Pending
Hgb Pending
Hct Pending
Plt Count Pending
Sodium Pending
Potassium Pending
Chloride Pending
Carbon Dioxide Pending
BUN Pending
Creatinine Pending
Glucose Pending
Calcium Pending
Vital Signs:
Vital Signs
Temp Pulse Resp BP Pulse Ox
98.0 F 81 19 132/70 98
11/24/24 23:06 11/24/24 23:06 11/24/24 23:06 11/24/24 23:06 11/24/24 23:06
I&O
11/24/24 11/25/24 11/26/24
06:59 06:59 06:59
Intake Total 1779 / 1779 390 / 390
Output Total 2600 / 2600 1550 / 2900 1650 / 1650
Balance -821 / -821 -1160 / -2510 -1650 / -1650
[2024-11-25 07:35] LABS: Hematocrit 27.8 % (39.0-52.0); Hemoglobin 9.2 g/dL (13.0-18.0); Mean Corp Hgb Conc. 33.1 g/dL (33.0-37.0); Mean Corpuscular Volume 92.7 fL (80.0-94.0); Platelet Count 245 10^3/uL (130-400); Red Cell Dist. Width 13.5 % (11.5-14.5)
[2024-11-25 08:22] LABS: Blood Urea Nitrogen 40 mg/dl (9-20); Calcium 9.2 mg/dl (8.4-10.2); Carbon Dioxide 28 mmol/L (22-30); Chloride 105 mmol/L (98-107); Estimated Creatinine Clearance 33 ml/min; Glucose 91 mg/dl (70-99); Magnesium 1.9 mg/dl (1.6-2.3); Potassium 5.1 mmol/L (3.5-5.1); Sodium 138 mmol/L (135-145); eGFR 46.93
[2024-11-25 08:27] LABS: Iron 28 ug/dl (49-181)
--- NOTE | 2024-11-25 08:33 | W.PN.NEPH.PH ---
Today's Communication / Plan
-
stable for discharge
Assessment/Plan
-
Impression:
Sepsis/gram-negative devi bacteremia suspected due to underlying UTI
Acute kidney injury
Nongap metabolic acidosis
Hyponatremia
Possible underlying bladder neoplasm and/or obstruction with perinephric stranding on CT
Paroxysmal atrial fibrillation
Intellectual disability
Hypothyroidism
Bipolar anxiety depression
GERD
Plan:
creatinine down to 1.6
stable for discharge
would discharge off CINDY
Continue Chen catheter placement for possible underlying obstructive component and will likely need urological follow-up for possible bladder mass noted on CT (but will defer to ),
-
-
Date of Service: November 25, 2024
CC / HPI / ROS
-
Chief Complaint:
FERNANDO
History of Present Illness:
Acute kidney injury resolving
hemodynamically stable
Review of Systems:
Patient responsive awake lethargic
Chen nonoliguric
Labs
-
Labs:
WBC 9.2 10^3/uL (4.8-10.8) 11/25/24 06:51
RBC 3.00 10^6/uL (4.70-6.10) L 11/25/24 06:51
Hgb 9.2 g/dL (13.0-18.0) L 11/25/24 06:51
Hct 27.8 % (39.0-52.0) L 11/25/24 06:51
Plt Count 245 10^3/uL (130-400) 11/25/24 06:51
Sodium 138 mmol/L (135-145) 11/25/24 06:51
Potassium 5.1 mmol/L (3.5-5.1) 11/25/24 06:51
Chloride 105 mmol/L (98-107) 11/25/24 06:51
Carbon Dioxide 28 mmol/L (22-30) 11/25/24 06:51
BUN 40 mg/dl (9-20) H 11/25/24 06:51
Creatinine 1.6 mg/dL (0.7-1.3) H 11/25/24 06:51
eGFR 46.93 11/25/24 06:51
Glucose 91 mg/dl (70-99) 11/25/24 06:51
Calcium 9.2 mg/dl (8.4-10.2) 11/25/24 06:51
Phosphorus 2.6 mg/dl (2.5-4.5) 11/23/24 04:29
Albumin 2.6 g/dl (3.5-5.0) L 11/24/24 05:54
Physical Exam
-
Vital Signs:
Vital Signs
Temp Pulse Resp BP Pulse Ox
98.0 F 81 19 132/70 98
11/24/24 23:06 11/24/24 23:06 11/24/24 23:06 11/24/24 23:06 11/24/24 23:06
Respiratory:: Bilateral: Coarse
Lung Excursion:: Normal
Abdomen:: Soft
Bowel Sounds:: Normal
Extremity Edema:: None: Bilateral:
Chen Catheter: Yes
[2024-11-25 08:43] LABS: Total Iron Binding Capacity 208 ug/dl (261-462)
[2024-11-25] MEDS: FLOMAX 0.4 MG PO ×2 (09:14→19:31)
[2024-11-25] MEDS: BUSPAR 15 MG PO ×2 (09:14→19:30)
[2024-11-25] MEDS: ELIQUIS 5 MG PO ×2 (09:14→19:29)
[2024-11-25] MEDS: MIRALAX PO (09:14)
[2024-11-25] MEDS: MURO 5% OPHTHALMIC OINTMENT 1 APPLIC RIGHT EYE ×2 (09:15→19:31)
[2024-11-25] MEDS: TOPROL XL PO ×2 (09:25→09:39)
--- NOTE | 2024-11-25 09:26 | W.PN.ID1 ---
Date of Service
Date of Service: November 25, 2024
Today's Communication
Continue ertapenem.
Assessment / Plan
# s/p Clinical sepsis
#Bacteremia with ESBL E. coli
#Complicated urinary tract infection; possible pyelonephritis
#Lactic acidosis
#Leukocytosis -Resolved
#FERNANDO-Improving further
Intellectual disability (chronically nonverbal)
Tardive dyskinesia
A-fib (on Eliquis)
B12 deficiency
Ambulatory dysfunction
HTN
GERD
Constipation
BPH
Hypothyroidism
Recommendations:
-Repeat blood cultures negative
-ESBL E. coli identified, sensitives back
-Continuing Ertapenem 1g IV q24 through 12/04/24
- Follow weekly CMP, CBC while on IV abx.
- Pt will go to sister's house for home IV abx, then return to [facility].
Chief Complaint
-: Bacteremia
Vital Signs / Physical Exam
Vital Signs
Vital Signs
Temp Pulse Resp BP Pulse Ox
98.0 F 71 19 102/58 98
11/24/24 23:06 11/25/24 09:25 11/24/24 23:06 11/25/24 09:25 11/24/24 23:06
Physical Exam
Constitutional: No Acute Distress, Comfortable and Chronically Ill
Cardiovascular: Regular Rate and S1/S2
Pulmonary: Clear and Non Labored
Gastrointestinal: Soft, Non Tender and Non Distended
Genito-Urinary: Chen and Clear Urine; Negative CVA Tenderness
Extremities: Edema (Right upper extremity edema, no tenderness or pain. Pulses in tact)
Neurological: Awake and Alert
Psychological: Calm
Objective Data
Lab Data
Lab Results
11/25/24 06:51
11/25/24 06:51
PT 30.1 Sec (11.4-14.6) H 11/21/24 15:57
INR 2.88 11/21/24 15:57
APTT 44.7 Sec (23.4-35.0) H 11/21/24 15:57
Estimated Creat Clear 33 ml/min 11/25/24 06:51
Lactic Acid Cancelled 11/22/24 06:00
Total Bilirubin 0.5 mg/dl (0.2-1.3) 11/24/24 05:54
AST 75 U/L (17-59) H 11/24/24 05:54
ALT 55 U/L (0-50) H 11/24/24 05:54
Alkaline Phosphatase 160 U/L (38-126) H 11/24/24 05:54
Most recent labs reviewed.
Micro Results:
11/21/24 15:57 Blood Culture - Preliminary
Blood/Venous No Growth in 72 hours- Final report to follow
11/20/24 15:44 Blood Culture - Final
Blood/Venous Escherichia coli - ESBL
Gram Stain - Final
11/20/24 14:52 Blood Culture - Final
Blood/Venous Escherichia coli - ESBL
Gram Stain - Final
11/20/24 20:11 MRSA Screen - Final
Nose Staph aureus MRSA
11/20/24 13:48 Urine Culture - Final
Urine No Significant Growth
Imaging:
11/21/2024 CT abdomen/pelvis without contrast: bilateral perinephric stranding with mild to moderate bilateral hydroureter without overt obstructive uropathy. Findings may reflect ascending urinary tract infection. Focal urinary bladder wall
thickening suspicious for neoplasm. Please see full dictation for additional detail.
--- NOTE | 2024-11-25 10:58 | CON.ONC ---
Consultation
-
Date Consultation Requested: 11/25/24
Date Consultation Performed: 11/25/24
Requesting Provider: Lashell
Performing Provider: Teddy
Reason for Consultation: PICC associated UE DVT
Impression
Impression
Catheter associated right upper extremity DVT
Septic shock
Intellectual disability/autism since age 3: Chronically nonverbal since age 3 except will say 1 word at a time asking for things, Pseudobulbar affect/tardive dyskinesia
PAF: On Eliquis
Bipolar disorder/anxiety/depression: cont BuSpar/mirtazapine
Anemia likely related to hospitalization and FERNANDO excetra. Should resolve with time.
Plan
Plan
In my opinion this does not represent an Eliquis failure as catheter associated thrombosis are often related to structural physical obstruction in the lumen and removal of the catheter is often required.
Hopefully another catheter will be able to be inserted to complete what ever antibiotic therapy is needed.
Regarding anticoagulation management, continue Eliquis long-term for treatment of paroxysmal atrial fibrillation. The catheter associated thrombosis should resolve with both Eliquis and with the removal of the catheter.
On exam today after catheter removal, the right hand swelling which led to this diagnosis and imaging has resolved.
At this point, no need for long-term hematology follow-up. Please reach out to us if needed for future hematologic issues.
Patient History
History of Present Illness
68-year-old man with intellectual disability he lives in a assisted admitted with lethargy, weakness. He has chronic dementia (intellectual disability and autism since age 3) and is nonverbal at baseline. On admission he was febrile to 103 and
hypotensive. He was diagnosed with a UTI. Patient has a right upper extremity midline catheter for prolonged antibiotic and has developed some right hand swelling yesterday prompting a Doppler ultrasound which was positive for catheter associated
upper extremity DVT. RUE U/S: Nonocclusive thrombus in the mid brachial vein along the course of the peripheral catheter. The right internal jugular, subclavian, axillary, basilic, and cephalic veins are patent. Patient is on Eliquis 5 mg PO BID
for atrial fibrillation and the question is whether or not this represents an Eliquis failure. Midline catheter was removed and a contralateral midline catheter was attempted to to be placed but unfortunately they were unsuccessful.
Past-Medical/Surgical History
PMH:
chronic nonverbal but does say 1 word commands/intellectual disability/autism since age 3/dementia,/encephalopathy, pseudobulbar affect, tardive dyskinesia, A-fib on Eliquis, vitamin B12 deficiency, esophageal dilation 2009, aspiration pneumonia,
ambulatory dysfunction, HTN, GERD, constipation, BPH status post TURP 2019, urinary retention, hypothyroidism, bipolar disorder/anxiety/depression
Past Surgical History:
TURP 2019
Social History
Tobacco: Non-smoker
Alcohol: None
Drug: None
Personal: Single
Living: Other (long-term [facility])
Employment: Disabled
Patient Medication
�Medication �Instructions �Recorded �Confirmed �Last Taken �Type
buspirone 15 mg tablet 15 mg PO BID Mental Health/Anxiety 07/17/21 11/20/24 07/21/21 07:00 History
famotidine 20 mg tablet (Acid 20 mg PO BID Gastrointestinal Issue 07/17/21 11/20/24 Unknown History
Controller)
lisinopril 5 mg tablet 5 mg PO DAILY Blood Pressure 07/17/21 11/20/24 07/20/21 20:00 History
loperamide 2 mg capsule 2 mg PO Q4HPRN PRN loose stool 07/17/21 11/20/24 Unknown History
magnesium hydroxide 400 mg/5 mL 30 ml PO [id number] PRN constipation 07/17/21 11/20/24 Unknown History
oral suspension
mirtazapine 30 mg tablet 30 mg PO HS Mental Health/Anxiety 07/17/21 11/20/24 07/20/21 20:00 History
tamsulosin 0.4 mg capsule 0.4 mg PO BID Urinary Issue 07/17/21 11/20/24 07/21/21 07:00 History
apixaban 5 mg tablet 5 mg PO BID Blood Clot 04/29/23 11/20/24 Unknown History
Prevention/Tx
carbamide peroxide 6.5 % ear drops 4 drp EACH EAR MONTHLY ear problem 04/29/23 11/20/24 Unknown History
(Debrox)
dextromethorphan 20 mg-quinidine 1 cap PO DAILY Congestion 04/29/23 11/20/24 Unknown History
10 mg capsule (Nuedexta)
dextromethorphan-guaifenesin 10 10 ml PO Q6HPRN PRN 04/29/23 11/20/24 Unknown History
mg-100 mg/5 mL oral syrup (Chest cough/congestion
Congestion Relief DM)
ketoconazole 2 % shampoo 1 applic topical MOTH scalp problem 04/29/23 11/20/24 Unknown History
metoprolol succinate 25 mg 25 mg PO DAILY Heart Failure 04/29/23 11/20/24 Unknown History
tablet,extended release 24 hr
olopatadine 0.2 % eye drops 1 drp BOTH EYES DAILYPRN PRN 04/29/23 11/20/24 Unknown History
allergic symptoms/itching
sodium chloride 5 % eye ointment 1 applic RIGHT EYE BID Eye 04/29/23 11/20/24 Unknown History
(Stacey 128) Condition
zinc oxide 13 % topical cream 1 applic topical DAILYPRN PRN 04/29/23 11/20/24 Unknown History
(Desitin Daily Defense) apply to groin/buttocks
acetaminophen 325 mg tablet 650 mg PO Q4HPRN PRN MILD pain, 07/07/24 11/20/24 Unknown History
headache, temp>100.4
erythromycin 5 mg/gram (0.5 %) eye 1 applic BOTH EYES HS Eye Condition 07/07/24 11/20/24 Unknown History
ointment
bisacodyl 10 mg rectal suppository 10 mg NH DAILYPRN PRN IF NO BM BY 11/20/24 11/20/24 Unknown History
4TH DAY
docusate sodium 50 mg/5 mL oral 100 mg PO BIDPRN PRN IF NO BM BY 11/20/24 11/20/24 Unknown History
liquid 2ND DAY
levothyroxine 75 mcg tablet 75 mcg PO DAILY Thyroid 11/20/24 11/20/24 Unknown History
(Synthroid)
neomycin-bacitracn Zn-polymyxn 3.5 1 applic topical BIDPRN PRN RASH 11/20/24 11/20/24 Unknown History
mg-400 unit-5,000 unit top oint
pkt (Triple Antibiotic)
neomycin-bacitracn Zn-polymyxn 3.5 1 applic topical QIDPRN PRN 11/20/24 11/20/24 Unknown History
mg-400 unit-5,000 unit top oint SCRAPES,ABRASIONS
pkt (Triple Antibiotic)
phenyleph-shark liver 1 applic NH Q4HPRN PRN HEMORRHOIDAL 11/20/24 11/20/24 Unknown History
glu-crgmmx-bwx 0.25 %-3 %-12 %
rectal cream (Hemorrhoidal)
polyethylene glycol 3350 17 17 g PO DAILY Constipation 11/20/24 11/20/24 Unknown History
gram/dose oral powder
sennosides 8.6 mg tablet (senna) 17.2 mg PO HSPRN PRN IF NO BM BY 11/20/24 11/20/24 Unknown History
3RD DAY
triamcinolone acetonide 0.1 % 1 applic topical BIDPRN PRN RASH 11/20/24 11/20/24 Unknown History
topical ointment
Active Medications
Generic Name Dose Route Start Last Admin
Trade Name Freq PRN Reason Stop Dose Admin
Acetaminophen 650 mg 11/23/24 10:47
Acetaminophen 325 Mg Tablet PO 12/21/24 10:46
Q4HPRN PRN
MILD pain, headache, temp>100.4
Apixaban 5 mg 11/20/24 20:00 11/25/24 09:14
Apixaban (Eliquis) 5 Mg Tablet PO 12/18/24 19:59 5 mg
BID SADE Administration
Bisacodyl 10 mg 11/20/24 18:18
Bisacodyl 10 Mg Rectal Suppository RECTAL 12/18/24 18:17
DAILYPRN PRN
IF NO BM BY 4TH DAY
Buspirone HCl 15 mg 11/20/24 20:00 11/25/24 09:14
Buspirone 10 Mg Tablet PO 12/18/24 19:59 15 mg
BID SADE Administration
Carbamide Peroxide 0 drop 12/21/24 08:00
Carbamide Peroxide 6.5% (Otic Solution) 15 Ml Bottle BOTH EARS 01/18/25 07:59
MONTHLY SADE
Docusate Sodium 100 mg 11/21/24 08:56
Docusate Sodium Liquid (100 Mg/10 Ml) Cup PO 12/19/24 08:55
BIDPRN PRN
IF NO BM BY 2ND DAY
Erythromycin 0 applic 11/20/24 22:00 11/24/24 21:25
Erythromycin 0.5% (Ophthalmic Ointment) 1 Gram Tube BOTH EYES 11/30/24 21:59 1 applic
HS SADE Administration
Famotidine 20 mg 11/21/24 20:00 11/23/24 20:18
Famotidine 20 Mg Tablet PO 12/19/24 19:59 20 mg
Q48H SADE Administration
Ertapenem 500 mg/ Sodium 55 mls @ 100 mls/hr 11/23/24 12:00 11/24/24 13:30
Chloride IV 55 mls
Q24H SADE Administration
Levothyroxine Sodium 75 mcg 11/21/24 06:00 11/25/24 05:19
Levothyroxine 75 Mcg Tablet PO 12/19/24 05:59 75 mcg
DAILY@0600 SADE Administration
Magnesium Hydroxide 30 ml 11/20/24 18:18
Milk Of Magnesia 30 Ml Cup PO 12/18/24 18:17
[id number] PRN
constipation
Metoprolol Tartrate 12.5 mg 11/25/24 10:00
Metoprolol 12.5 Mg Regular Release Dose (1/2 Of 25 Mg Tablet) PO 12/23/24 09:59
BID SADE
Mirtazapine 30 mg 11/21/24 22:00 11/24/24 21:25
Mirtazapine 30 Mg Tablet PO 12/19/24 21:59 30 mg
HS SADE Administration
Non-Formulary Medication 1 cap 11/24/24 08:00
Dextromethorphan-Quinidine [Nuedexta] PO 12/22/24 07:59
DAILY SADE
Olopatadine HCl 0 drop 11/21/24 09:24
Olopatadine 0.1% Ophthalmic Solution 5 Ml Bottle OPHTH 12/19/24 09:23
DAILYPRN PRN
allergic symptoms/itching
Ondansetron HCl 4 mg 11/20/24 18:18
Ondansetron 4 Mg/2 Ml Vial IV 12/18/24 18:17
Q6HPRN PRN
nausea and vomiting
Polyethylene Glycol 17 grams 11/22/24 08:00 11/25/24 09:14
Polyethylene Glycol Powder 17 Grams Packet PO 12/20/24 07:59 Not Given
DAILY SADE
Sennosides 17.2 mg 11/21/24 08:56
Sennosides (Senokot) 8.6 Mg Tablet PO 12/19/24 08:55
HSPRN PRN
IF NO BM BY 3RD DAY
Sodium Chloride 0 applic 11/21/24 09:00 11/25/24 09:15
Sodium Chloride 5% (Stacey Ophthalmic Ointment) 3.5 Gram Tube RIGHT EYE 12/19/24 08:59 1 applic
BID SADE Administration
Tamsulosin HCl 0.4 mg 11/23/24 20:00 11/25/24 09:14
Tamsulosin 0.4 Mg Capsule PO 12/21/24 19:59 0.4 mg
BID SADE Administration
Zinc Oxide 1 applic 11/21/24 09:24
Desitin Maximum Strength (Zinc Oxide 40%) Paste TOPICAL 12/19/24 09:23
DAILYPRN PRN
apply to groin/buttocks
Review of Systems
-
Unable to obtain full review of systems at this time due to: Dementia and Patient Non Verbal
Physical Exam
-
General: Appears Chronically Ill; Negative Conversant
Cardiology: S1 and S2
Pulmonary: Clear
Extremities: No C/C/E
Labs
Lab Results
WBC 9.2 10^3/uL (4.8-10.8) 11/25/24 06:51
RBC 3.00 10^6/uL (4.70-6.10) L 11/25/24 06:51
Hgb 9.2 g/dL (13.0-18.0) L 11/25/24 06:51
Hct 27.8 % (39.0-52.0) L 11/25/24 06:51
MCV 92.7 fL (80.0-94.0) 11/25/24 06:51
MCH 30.7 pg (27.0-31.0) 11/25/24 06:51
MCHC 33.1 g/dL (33.0-37.0) 11/25/24 06:51
RDW 13.5 % (11.5-14.5) 11/25/24 06:51
Plt Count 245 10^3/uL (130-400) 11/25/24 06:51
MPV 10.1 fL (7.4-10.4) 11/25/24 06:51
Abs Immat Gran (auto) 0.1 10^3/uL (0-0.05) H 11/24/24 05:54
Absolute Neuts (auto) 7.4 10^3/uL (1.4-6.5) H 11/24/24 05:54
Absolute Lymphs (auto) 0.9 10^3/uL (1.2-3.4) L 11/24/24 05:54
Absolute Monos (auto) 1.9 10^3/uL (0.1-0.6) H 11/24/24 05:54
Absolute Eos (auto) 0.2 10^3/uL (0-0.7) 11/24/24 05:54
Absolute Basos (auto) 0.1 10^3/uL (0-0.2) 11/24/24 05:54
Immature Gran % 1.1 % (0-0.5) H 11/24/24 05:54
Neutrophils % 70.4 % (42.2-75.2) 11/24/24 05:54
Lymphocytes % 8.2 % (20.5-51.1) L 11/24/24 05:54
Monocytes % 17.9 % (1.7-9.3) H 11/24/24 05:54
Eosinophils % 1.8 % (0-6) 11/24/24 05:54
Basophils % 0.6 % (0-2) 11/24/24 05:54
Creatinine 1.6 mg/dL (0.7-1.3) H 11/25/24 06:51
Vital Signs
Vital Signs
Temp Pulse Resp BP Pulse Ox
99 F 71 16 102/58 95
11/25/24 07:00 11/25/24 07:00 11/25/24 07:00 11/25/24 07:00 11/25/24 07:00
[2024-11-25] MEDS: LOPRESSOR 12.5 MG PO ×2 (11:12→19:31)
[2024-11-25 11:47] LABS: Ferritin 126.0 ng/ml (17.9-464.0)
--- NOTE | 2024-11-25 13:00 | PTCARENOTE ---
Patient required 5+ people to have patient cooperate for Midline including security as patient was kicking/moving all over the place. Successful ML placed by VAT RN in E.
[2024-11-25] MEDS: INVANZ 55 MG IV (13:18)
[2024-11-25 15:00] VITALS: BP 139/64
[2024-11-25] MEDS: PEPCID 20 MG PO (19:30)
[2024-11-25] MEDS: REMERON 30 MG PO (22:03)
[2024-11-25] MEDS: ERYTHROMYCIN 0.5% OPHTHALMIC OINTMENT 1 APPLIC BOTH EYES (22:07)
[2024-11-25 23:06] VITALS: BP 162/67
[2024-11-26] MEDS: SYNTHROID 75 MCG PO (05:44)
[2024-11-26 05:54] VITALS: BMI 26.7
[2024-11-26 07:00] VITALS: BP 142/67
[2024-11-26] MEDS: ELIQUIS 5 MG PO (08:04)
[2024-11-26] MEDS: MURO 5% OPHTHALMIC OINTMENT 1 APPLIC RIGHT EYE (08:04)
[2024-11-26] MEDS: MIRALAX 17 GRAMS PO (08:04)
[2024-11-26] MEDS: LOPRESSOR 12.5 MG PO (08:05)
[2024-11-26] MEDS: FLOMAX 0.4 MG PO (08:06)
[2024-11-26] MEDS: BUSPAR 15 MG PO (08:06)
--- NOTE | 2024-11-26 08:16 | W.PN.HOSP.TC ---
Today's Communication/Plan
-
d/c
Assessment / Plan
Assessment / Plan
Gen: remains NAD, Awake and alert
Eyes: EOMI, PERRLA, no scleral icterus.
Neck: supple.
CV: remains RRR, +S1/S2, no m/r/g.
Resp: CTAB, no rales, wheezes, or rhonchi.
Abd: +BS, soft, NT, ND
Skin: No rashes.
Neuro: remains CN 2-12 intact, non-focal.
Psych: Normal mood and affect.
11/21/24 15:57 Blood/Venous Blood Culture - Preliminary
No Growth in 4 days- Final report to follow
11/20/24 15:44 Blood/Venous Blood Culture - Final
Escherichia coli - ESBL
11/20/24 15:44 Blood/Venous Gram Stain - Final
11/20/24 14:52 Blood/Venous Blood Culture - Final
Escherichia coli - ESBL
11/20/24 14:52 Blood/Venous Gram Stain - Final
11/20/24 20:11 Nose MRSA Screen - Final
Staph aureus MRSA
11/20/24 13:48 Urine Urine Culture - Final
No Significant Growth
CT A/P: Bilateral perinephric stranding with mild to moderate bilateral hydroureter without overt obstructive uropathy. Findings may reflect ascending urinary tract infection. Focal urinary bladder wall thickening suspicious for neoplasm, new from
prior. Recommend direct visualization.
RUE U/S: Nonocclusive thrombus in the mid brachial vein along the course of the peripheral catheter. The right internal jugular, subclavian, axillary, basilic, and cephalic veins are patent.
Renal U/S: Normal sonographic appearance of both kidneys. Joel catheter is present within the bladder and the bladder is decompressed.
Septic shock:
-CT A/P above
-secondary to ESBL bacteremia with presumed UTI (even if UCx NG)
-was on vasopressors, now off
-repeat BCxs NG
-s/p IVFs
-lactic acidosis and leukocytosis have resolved
-cont Invanz through 12/04/24 as per ID
Focal urinary bladder wall thickening:
-concern for neoplasm
-pt seen by urology
-for joel catheter change and cystoscopy in 1 month
Acute RUE DVT:
-imaging above
-currently on Eliquis for PAF
-appreciate heme, this does not represent an Eliquis failure
FERNANDO:
-due to septic shock in the setting of urinary retention/BPH s/p TURP 2019
-Renal U/S unremarkable
-renal saw in c/s
-ACEi on hold
Normocytic anemia:
-drop in Hb was dilutional
-check Fe/TIBC/ferritin
Other problems:
Essential HTN: cont BB
Hyponatremia, resolved
Intellectual disability/autism since age 3: Chronically nonverbal since age 3 except will say 1 word at a time asking for things, Pseudobulbar affect/tardive dyskinesia
PAF: Cont Eliquis/BB (noting Eliquis may need to be replaced as above)
Hypothyroidism: Cont levothyroxine
Bipolar disorder/anxiety/depression: cont BuSpar/mirtazapine
GERD: cont Pepcid
h/o esophageal dilation 2009
Eliquis/DNR/DNI
Medically cleared for discharge. Case management aware. The pt requires SNF after discharge.
Total time spent on d/c = 31 min. This included today's physical exam, progress note, review of laboratory and diagnostic data, preparation of discharge documents and prescriptions, and discussions about the pt's hospital course and discharge plan
with the patient and other lpn medical assistant involved in the patient's care.
Anticipated Discharge: Today
Subjective/Interval History
-
Date of Service: November 26, 2024
Pt currently not answering questions.
Objective Data
-
Vital Signs:
Vital Signs
Temp Pulse Resp BP Pulse Ox
97.2 F 64 19 142/67 98
11/25/24 23:06 11/26/24 08:05 11/25/24 23:06 11/26/24 08:05 11/25/24 23:06
I&O
11/25/24 11/26/24 11/27/24
06:59 06:59 06:59
Intake Total 390 / 390 480 / 480
Output Total 1550 / 2900 4650 / 4650
Balance -1160 / -2510 -4170 / -4170
--- NOTE | 2024-11-26 09:36 | W.PN.ID1 ---
Date of Service
Date of Service: November 26, 2024
Today's Communication
Continue Ertapenem.
Assessment / Plan
# s/p Clinical sepsis
#Bacteremia with ESBL E. coli
#Complicated urinary tract infection; possible pyelonephritis
#Leukocytosis -Resolved
#FERNANDO-Improving further
# RUE catheter-associated DVT, midline dc'd
Intellectual disability (chronically nonverbal)
Tardive dyskinesia
A-fib (on Eliquis)
B12 deficiency
Ambulatory dysfunction
HTN
GERD
Constipation
BPH
Hypothyroidism
Recommendations:
-Repeat blood cultures negative
-Continuing Ertapenem 1g IV q24 through 12/04/24
- Follow weekly CMP, CBC while on IV abx.
- Pt will go to sister's house for home IV abx, then return to snf.
Chief Complaint
-: Bacteremia
Subjective / Review of Systems
Family at bedside.
Vital Signs / Physical Exam
Vital Signs
Vital Signs
Temp Pulse Resp BP Pulse Ox
97.2 F 64 16 142/67 97
11/26/24 07:00 11/26/24 08:05 11/26/24 07:00 11/26/24 08:05 11/26/24 07:00
Physical Exam
Constitutional: No Acute Distress and Comfortable
Cardiovascular: Regular Rate and S1/S2
Pulmonary: Clear and Non Labored
Gastrointestinal: Soft, Non Tender and Non Distended
Genito-Urinary: Chen and Clear Urine; Negative CVA Tenderness
Extremities: Edema (Right upper extremity edema, no tenderness or pain. Pulses in tact)
Neurological: Awake and Alert
Psychological: Calm
Lines: Other (LUE midline intact)
Objective Data
Lab Data
Lab Results
11/25/24 06:51
11/25/24 06:51
PT 30.1 Sec (11.4-14.6) H 11/21/24 15:57
INR 2.88 11/21/24 15:57
APTT 44.7 Sec (23.4-35.0) H 11/21/24 15:57
Estimated Creat Clear 33 ml/min 11/25/24 06:51
Lactic Acid Cancelled 11/22/24 06:00
Total Bilirubin 0.5 mg/dl (0.2-1.3) 11/24/24 05:54
AST 75 U/L (17-59) H 11/24/24 05:54
ALT 55 U/L (0-50) H 11/24/24 05:54
Alkaline Phosphatase 160 U/L (38-126) H 11/24/24 05:54
Most recent labs reviewed.
Micro Results:
11/21/24 15:57 Blood Culture - Preliminary
Blood/Venous No Growth in 4 days- Final report to follow
11/20/24 15:44 Blood Culture - Final
Blood/Venous Escherichia coli - ESBL
Gram Stain - Final
11/20/24 14:52 Blood Culture - Final
Blood/Venous Escherichia coli - ESBL
Gram Stain - Final
11/20/24 20:11 MRSA Screen - Final
Nose Staph aureus MRSA
11/20/24 13:48 Urine Culture - Final
Urine No Significant Growth
Imaging:
11/21/2024 CT abdomen/pelvis without contrast: bilateral perinephric stranding with mild to moderate bilateral hydroureter without overt obstructive uropathy. Findings may reflect ascending urinary tract infection. Focal urinary bladder wall
thickening suspicious for neoplasm. Please see full dictation for additional detail.
--- NOTE | 2024-11-26 09:37 | W.PN.NEPH.PH ---
Today's Communication / Plan
-
Stable for discharge from nephrology standpoint
Assessment/Plan
-
Impression:
Sepsis/gram-negative devi bacteremia suspected due to underlying UTI
Acute kidney injury
Nongap metabolic acidosis
Hyponatremia
Possible underlying bladder neoplasm and/or obstruction with perinephric stranding on CT
Paroxysmal atrial fibrillation
Intellectual disability
Hypothyroidism
Bipolar anxiety depression
GERD
Plan:
creatinine down to 1.6
stable for discharge
would discharge off CINDY
Continue Chen catheter placement for possible underlying obstructive component and will likely need urological follow-up for possible bladder mass noted on CT (but will defer to ), 3liters
-
-
Date of Service: November 26, 2024
CC / HPI / ROS
-
Chief Complaint:
FERNANDO
History of Present Illness:
Acute kidney injury resolving, creatinine down to 1 point
hemodynamically stable
Review of Systems:
Patient responsive awake lethargic
Chen nonoliguric
Labs
-
Labs:
WBC 9.2 10^3/uL (4.8-10.8) 11/25/24 06:51
RBC 3.00 10^6/uL (4.70-6.10) L 11/25/24 06:51
Hgb 9.2 g/dL (13.0-18.0) L 11/25/24 06:51
Hct 27.8 % (39.0-52.0) L 11/25/24 06:51
Plt Count 245 10^3/uL (130-400) 11/25/24 06:51
Sodium 138 mmol/L (135-145) 11/25/24 06:51
Potassium 5.1 mmol/L (3.5-5.1) 11/25/24 06:51
Chloride 105 mmol/L (98-107) 11/25/24 06:51
Carbon Dioxide 28 mmol/L (22-30) 11/25/24 06:51
BUN 40 mg/dl (9-20) H 11/25/24 06:51
Creatinine 1.6 mg/dL (0.7-1.3) H 11/25/24 06:51
eGFR 46.93 11/25/24 06:51
Glucose 91 mg/dl (70-99) 11/25/24 06:51
Calcium 9.2 mg/dl (8.4-10.2) 11/25/24 06:51
Phosphorus 2.6 mg/dl (2.5-4.5) 11/23/24 04:29
Albumin 2.6 g/dl (3.5-5.0) L 11/24/24 05:54
Physical Exam
-
Vital Signs:
Vital Signs
Temp Pulse Resp BP Pulse Ox
97.2 F 64 16 142/67 97
11/26/24 07:00 11/26/24 08:05 11/26/24 07:00 11/26/24 08:05 11/26/24 07:00
Respiratory:: Bilateral: Coarse
Lung Excursion:: Normal
Abdomen:: Soft
Bowel Sounds:: Normal
Extremity Edema:: None: Bilateral:
Chen Catheter: Yes
--- NOTE | 2024-11-26 09:57 | W.PN.URO.CBU ---
Today's Communication / Plan
-
[facility]
Assessment / Plan
-
Urosepsis
Bacteremia
Acute on chronic urinary retention
FERNANDO
Suspected neurogenic bladder dysfunction
H/o BPH s/p TURP ([facility])
H/o subsequent bladder neck contracture s/p dilation ([facility])
Diagnosis
-
Date of Service: November 26, 2024
-
Patient Diagnosis:
Post Op Day:
Patient Diagnosis:
Urosepsis
Bacteremia
Acute on chronic urinary retention
FERNANDO
Suspected neurogenic bladder dysfunction
H/o BPH s/p TURP ([facility])
H/o subsequent bladder neck contracture s/p dilation ([facility])
Subjective
-
mothe r staes pt doing better
Objective
-
Vital Signs
Temp Pulse Resp BP Pulse Ox
97.2 F 64 16 142/67 97
11/26/24 07:00 11/26/24 08:05 11/26/24 07:00 11/26/24 08:05 11/26/24 07:00
Intake and Output
11/25/24 11/26/24 11/27/24
06:59 06:59 06:59
Intake Total 390 / 390 480 / 480
Output Total 1550 / 2900 4650 / 4650
Balance -1160 / -2510 -4170 / -4170
Intake:
Oral fluids 390 / 390 480 / 480
Output:
Urine, Chen 1550 / 2900 4350 / 4350
Urine, Voided 300 / 300
Other:
Number of unmeasured liquid
stools
Rectum 1 2
Laboratory Results
11/25/24 06:51
11/25/24 06:51
Review of Systems
-
: Difficulty Voiding
Physical Exam
-
General - well developed, well nourished, no acute distress
Chest - clear bilaterally
Abdomen - soft, non-tender, positive bowel sounds, no CVAT, no incisional pain or distention
Genitalia - normal
Rectal - normal
Skin - warm & dry with no rash
Neuro - AOx3, no motor deficits
Extremities - no clubbing, no cyanosis, no edema
Incision - clean, dry
Dressing - clean, dry, intact
Care Review
Data Reviewed
Discussed with: Family
--- NOTE | 2024-11-26 10:30 | CM ---
CM following re: discharge planning.
Reviewed pt's chart, met with pt and pt's sister Emilie at bedside.
Discharge order noted. Both pt and his sister Herminia are aware, expressed their agreement. IMM reviewed, placed on chart, pt has a copy.
This is just to confirm that pt is a resident of [facility] assisted living facility, will continue to reside there and because pt needs IV antibiotic treatment that cannot be provided at [facility], sister and pt's nephew decided to bring the pt to [facility]'s
house in [place] just for time of IV antibiotic treatment and after pt will return back to [facility] assisted living facility/personal care. Pt's sister made the decision not to send the pt to a SNF. CM spoke to [facility] personal care merchandising representative May
and she confirmed the above.
CM spoke to [facility] merchandising representative Jesse and he confirmed that medications delivered to pt's home yesterday at 3:00 p.m. and teaching provided to both pt's sister and pt's nephew.
CM spoke to Lily SORENSEN merchandising representative Avelino and he confirmed that RN is assigned to pt's care and RN in communication with pt's sister Herminia
Pt needs IV antibiotic Ertapenem 500 mg Q24 hours, will get IV antibiotic treatment at 12:00 p.m. today and pt will be discharged home today. Lily RN will meet with the pt tomorrow for next dose of IV.
Pt's sister stated she is retired RN and she will provide all necessary care to pt (her brother) at home. Pt's sister stated she will stop at pt's pharmacy that [facility] is using to pick pt's prescribed medications up.
Please fax discharge instructions to Lily SORENSEN at [phone]
D/C plan: home temporarily for time of IV antibiotic to [facility] at [address] [address]. Michael Arshad with [facility] IV infusion, Lily SORENSEN and family support. Sister to transport.
[2024-11-26] MEDS: INVANZ 55 MG IV (11:07)
--- NOTE | 2024-11-26 12:31 | W.DCSUMMARY ---
Discharge Summary
Discharge Data
Date of Admission: 11/20/24
Date of Discharge: 11/26/24
-
Pending Results: No
Hospital Course
Primary diagnoses:
Septic shock and ESBL E. coli bacteremia due to acute urinary tract infection
Acute right upper extremity DVT due to midline
Acute kidney injury due to septic shock
Secondary diagnoses:
Focal urinary bladder wall thickening
Iron deficiency anemia
Essential hypertension
Hyponatremia
Intellectual disability/autism since age 3
Paroxysmal atrial fibrillation
Hypothyroidism
Bipolar disorder
Anxiety
Depression
Gastroesophageal reflux disease
h/o esophageal dilation 2009
Consultants:
Urology
Nephrology
Infectious disease
Hematology
Imaging:
CT A/P: Bilateral perinephric stranding with mild to moderate bilateral hydroureter without overt obstructive uropathy. Findings may reflect ascending urinary tract infection. Focal urinary bladder wall thickening suspicious for neoplasm, new from
prior. Recommend direct visualization.
RUE U/S: Nonocclusive thrombus in the mid brachial vein along the course of the peripheral catheter. The right internal jugular, subclavian, axillary, basilic, and cephalic veins are patent.
Renal U/S: Normal sonographic appearance of both kidneys. Joel catheter is present within the bladder and the bladder is decompressed.
68-year-old male presented with multiple chief complaints including weakness, pallor, lethargy, and difficulty participating in physical therapy as outlined in the H&P done on admission. Hospital course per problem list:
Septic shock and ESBL bacteremia due to acute urinary tract infection: On admission the patient was febrile and met sepsis criteria. Imaging above. Urinalysis showed pyuria, 3+ leuk esterase. Patient was given IV fluids and required vasopressors
for blood pressure support. He was started on Rocephin and then transitioned to meropenem. The patient's vasopressors were weaned off. Blood cultures grew ESBL E. coli. He was transitioned to Invanz through 12/04/24 as per ID. Patient's lactic
acidosis and leukocytosis resolved. Repeat blood cultures were negative.
Focal urinary bladder wall thickening: Neoplasm was not a concern. The patient was seen by urology. He will have joel catheter exchange and cystoscopy in 1 month.
Acute RUE DVT: Imaging above. RUE DVT was due to midline. Patient was seen in consultation by hematology. This deep vein thrombosis did not represent Eliquis failure. His right upper extremity midline was removed and replaced in the left upper
extremity.
FERNANDO: This was due to septic shock in the setting of urinary retention/BPH s/p TURP 2020. Renal U/S was unremarkable as above. Patient was seen in consultation by nephrology. His CINDY inhibitor was held.
Discharge Plan
-
Patient Disposition: Home with Home Care
Discharge Diagnosis/Procedures: Septic shock with lactic acidosis secondary to ESBL Escherichia coli presumed urinary tract infection, anemia, essential hypertension, acute kidney injury in the setting of septic shock with urinary retention, benign
prostatic hyperplasia and possible bladder mass, acute hyponatremia, intellectual disability/autism, paroxysmal atrial fibrillation, hypothyroidism, bipolar disorder/anxiety/depression, gastroesophageal reflux disease, history of constipation,
vitamin B12 deficiency, positive MRSA screen
Condition: Good
Diet: Other diet
Additional Diets: Pur�ed diet with thin liquids
Activity: As tolerated
Driving Restrictions: No driving
Bathing Restrictions: None
Other Services: VN, PT and OT
Activity Restrictions/Additional Instructions:
joel catheter to stay in at discharge
Ertapenem through 12/04/24
Referrals:
Bryan Cardona DO [Non-Admitting Privileges, Internal Medicine] - in less than 1 week
Jhonny Garcia DO [Active, Nephrology] - in two to three weeks
Edin Trujillo MD [Active, Urology] - in one month
Referral Note: call dr sr [phone] to discuss nexy=t phase treatment ie remove joel or do urodynamic testing
Prescriptions:
New
Ertapenem [Invanz] 500 MG
0.9% Sodium Chloride [Nss] 50 ML
100 mls/hr IV Q24H
Ordered By: Jens Lobo MD
Last Taken: 11/26/24 11:07 55 mls
metoprolol tartrate 25 mg tablet
12.5 mg PO BID Qty: 30 0RF
ferrous sulfate 325 mg (65 mg iron) tablet
325 mg PO BID Qty: 60 0RF
Continued
loperamide 2 MG capsule
2 mg PO Q4HPRN PRN (Reason: loose stool)
famotidine [Acid Controller] 20 MG tablet
20 mg PO BID
magnesium hydroxide 30 ML suspension
30 ml PO [id number] PRN (Reason: constipation)
tamsulosin 0.4 MG capsule
0.4 mg PO BID
mirtazapine 30 MG tablet
30 mg PO HS
buspirone 15 MG tablet
15 mg PO BID
ketoconazole 2 % shampoo
1 applic TOPICAL MOTH
dextromethorphan-guaifenesin [Chest Congestion Relief DM] 10-100 mg/5 mL Syrup
10 ml PO Q6HPRN PRN (Reason: cough/congestion)
sodium chloride [Stacey 128] 5 % ointment
1 applic RIGHT EYE BID
Debrox 6.5 % Drops
4 drp EACH EAR MONTHLY
Rx Instructions:
Instill 4 drps in both ears at bedtime on the 1st day of each month
olopatadine 0.2 % Drops
1 drp BOTH EYES DAILYPRN PRN (Reason: allergic symptoms/itching)
Desitin Daily Defense 13 % Cream
1 applic TOPICAL DAILYPRN PRN (Reason: apply to groin/buttocks)
Nuedexta 20-10 mg capsule
1 cap PO DAILY
apixaban 5 mg Tablet
5 mg PO BID
acetaminophen 325 mg Tablet
650 mg PO Q4HPRN PRN (Reason: MILD pain, headache, temp>100.4)
erythromycin 5 mg/gram (0.5 %) ointment
1 applic BOTH EYES HS
Rx Instructions:
1/2 INCH RIBBON INTO LOWER EYELID OF BOTH EYES
levothyroxine [Synthroid] 75 mcg Tablet
75 mcg PO DAILY
triamcinolone acetonide 0.1 % Ointment
1 applic TOPICAL BIDPRN PRN (Reason: RASH)
Hemorrhoidal 0.25-3-12 % Cream
1 applic MS Q4HPRN PRN (Reason: HEMORRHOIDAL)
Triple Antibiotic 3.5-400-5,000 [id number]-[id number] Ointment In Packet
1 applic TOPICAL BIDPRN PRN (Reason: RASH)
Triple Antibiotic 3.5-400-5,000 mv-iaqy-fobl Ointment In Packet
1 applic TOPICAL QIDPRN PRN (Reason: SCRAPES,ABRASIONS)
docusate sodium 50 mg/5 mL liquid
100 mg PO BIDPRN PRN (Reason: IF NO BM BY 2ND DAY)
sennosides [senna] 8.6 mg tablet
17.2 mg PO HSPRN PRN (Reason: IF NO BM BY 3RD DAY)
bisacodyl 10 mg suppository
10 mg MS DAILYPRN PRN (Reason: IF NO BM BY 4TH DAY)
polyethylene glycol 3350 17 gram/dose powder
17 g PO DAILY
Discontinued
lisinopril 5 MG tablet
5 mg PO DAILY
metoprolol succinate 25 mg tablet extended release 24 hr
25 mg PO DAILY
Discharge Orders:
Discharge Patient (As Directed); Ordered 11/26/24
Ordered By: Jens Lobo
Discharge Date and Time
Print Language: MOSOTHO
[2024-11-26 13:30] VITALS: BP 153/60
== END 2024-11-26 14:18 | disposition home health service (06) | DRG 871 ==
LOC: 2 NORTH 16:49
PROVIDERS: Clinical Nurse Specialist Family Health; Internal Medicine; Nurse Practitioner Primary Care; Physician Assistant; ADMITTING PHYSICIAN Hospitalist; ATTENDING PHYSICIAN Internal Medicine; CONSULT PHYSICIAN Internal Medicine Critical Care Medicine; CONSULT PHYSICIAN Internal Medicine Hematology & Oncology; CONSULT PHYSICIAN Specialist; CONSULT PHYSICIAN Urology; EMERGENCY PHYSICIAN Emergency Medicine; OTHER PHYSICIAN Internal Medicine Infectious Disease
DX: A41.51 Sepsis due to Escherichia coli [E. coli] (principal); R65.21 Severe sepsis with septic shock; F84.0 Autistic disorder; N13.6 Pyonephrosis; N17.9 Acute kidney failure, unspecified; Z16.12 Extended spectrum beta lactamase (ESBL) resistance; E87.1 Hypo-osmolality and hyponatremia; Z66 Do not resuscitate; E87.20 Acidosis, unspecified; T82.868A Thrombosis due to vascular prosthetic devices, implants and grafts, initial encounter; I82.621 Acute embolism and thrombosis of deep veins of right upper extremity; E03.9 Hypothyroidism, unspecified; E78.00 Pure hypercholesterolemia, unspecified; F31.9 Bipolar disorder, unspecified; F79 Unspecified intellectual disabilities; I48.0 Paroxysmal atrial fibrillation; N40.1 Benign prostatic hyperplasia with lower urinary tract symptoms; K59.00 Constipation, unspecified; K21.9 Gastro-esophageal reflux disease without esophagitis; E53.8 Deficiency of other specified B group vitamins; G24.01 Drug induced subacute dyskinesia; R33.8 Other retention of urine; E86.1 Hypovolemia; D50.9 Iron deficiency anemia, unspecified; N31.9 Neuromuscular dysfunction of bladder, unspecified; F48.2 Pseudobulbar affect; Y84.8 Other medical procedures as the cause of abnormal reaction of the patient, or of later complication, without mention of misadventure at the time of the procedure; Z88.8 Allergy status to other drugs, medicaments and biological substances; Z79.01 Long term (current) use of anticoagulants; Z79.899 Other long term (current) drug therapy; Z79.890 Hormone replacement therapy; Z22.322 Carrier or suspected carrier of Methicillin resistant Staphylococcus aureus; Z79.2 Long term (current) use of antibiotics; Z87.01 Personal history of pneumonia (recurrent); Z90.79 Acquired absence of other genital organ(s)
CPT/HCPCS: 71046; 74176; 76770; 80048; 80053; 81003; 81015; 82533; 82728; 82805; 83036; 83540; 83550; 83605; 83735; 83930; 83935; 84100; 84300; 84443; 85025; 85027; 85610; 85730; 87040; 87070; 87077; 87086; 87147; 87154; 87186; 87205; 92526; 92610; 93005; 93971; 96361; 96374; 97116; 97163; 97167; 97530; 97535; 99285; J1335; J7030

== ENCOUNTER 2025-01-12 07:17 | Inpatient (IN) | payer MEDICARE, MEDICAID, SELFPAY ==
[2025-01-11] VITALS (7 sets, daily range): BP systolic 95–133; BP diastolic 45–69; BMI 26.7
--- NOTE | 2025-01-11 08:45 | ED.GENMED ---
History of Present Illness
<CLYDE Hernandez - Last Filed: 01/11/25 14:50>
General
Chief Complaint: Catheter/Tube Problem
Source: patient
Exam Limitations: none
Time Seen by Provider: 01/11/25 08:26
Nursing documentation reviewed up to this point in time: agreed with
History of Present Illness
History of Present Illness:
69 yr old male with past medical history of hypertension intellectual disability paroxysmal A-fib on Eliquis bipolar anxiety depression reflux bladder stricture with dilation chronic Chen recent admission for septic shock due to ESBL E. coli
bacteremia due to UTI presents to the ER for evaluation of blood in his Chen catheter bag. He is still prescribed the Eliquis 5 mg 1 tablet twice a day. He is not able to give good history. He is from [employer] [facility]. Caregiver at
bedside reports patient typically will pull on his catheter.
Past History
<CLYDE Hernandez - Last Filed: 01/11/25 14:50>
Past History
ED Past Medical History: HTN, Hypercholesterolemia, Psychiatric and Other (nonverbal, ID)
Social History
Tobacco: Non-smoker
Phy Exam
<CLYDE Hernandez - Last Filed: 01/11/25 14:50>
General Physical Exam
General Presentation: no apparent distress
General age: appears stated age
General Skin: warm and dry
General Habitus: normal
General Mental: alert
General Hydration: appears well hydrated
Gastrointestinal Exam
Gastrointestinal Exam: non tender and soft
Genitourinary Exam Male
Exam Male: circumcised
Neurological Exam
Neurological Exam: alert and oriented x3
Musculoskeletal Exam
Musculoskeletal Exam: full ROM
Skin Exam
Skin Exam: normal color and warm/dry
Psychiatric Exam
Psychiatric Exam: normal mood/affect
Course
<CLYDE Hernandez - Last Filed: 01/11/25 14:50>
Orders/Labs/Results
Orders:
Orders
01/11/25 08:49
Chen [Chen Placement- Treatment] ONCE
Reason for insertion: Chronic Chen on Admit
01/11/25 08:50
Bladder Scan- Treatment ONCE
01/11/25 09:40
Complete Blood Count/With Diff Urgent
Comprehensive Metabolic Panel Urgent
01/11/25 13:01
Ketamine [Ketamine HCl] 200 mg IM NOW STA
01/11/25 13:02
Ketamine [Ketamine HCl] 500 mg .ROUTE .STK-MED ONE
01/11/25 13:37
Urinalysis Reflex To Culture Urgent
Date Specimen was Collected: 01/11/25
Time Specimen was Collected: 08:53
Urine Microscopic Reflex Cult Urgent
Urine Culture Urgent
LINN Source: U
Specimen Description:
Date Specimen was Collected: 01/11/25
Time Specimen was Collected: 08:53
Abnormal Lab Results
01/11/25 01/11/25
09:40 13:37
WBC 12.4 H 10^3/uL
(4.8-10.8)
RBC 3.22 L 10^6/uL
(4.70-6.10)
Hgb 9.4 L g/dL
(13.0-18.0)
Hct 31.6 L %
(39.0-52.0)
MCV 98.1 H fL
(80.0-94.0)
MCHC 29.7 L g/dL
(33.0-37.0)
Abs Immat Gran (auto) 0.1 H 10^3/uL
(0-0.05)
Absolute Neuts (auto) 9.2 H 10^3/uL
(1.4-6.5)
Absolute Monos (auto) 1.7 H 10^3/uL
(0.1-0.6)
Immature Gran % 0.6 H %
(0-0.5)
Lymphocytes % 9.9 L %
(20.5-51.1)
Monocytes % 13.6 H %
(1.7-9.3)
Sodium 134 L mmol/L
(135-145)
Glucose 100 H mg/dl
(70-99)
Ur Occult Blood Reflex 4+ A
(Negative)
Leukocyte Esterase Rfl 3+ A
(Negative)
Urine Albumin (Reflex) 3+ A
(Neg - Trace)
01/11/25 09:40
01/11/25 09:40
Vital Signs
Initial and Last Documented VS:
Initial Vital Signs
Temp Pulse Resp BP Pulse Ox
97.9 F 70 19 113/55 98
01/11/25 08:17 01/11/25 08:17 01/11/25 08:17 01/11/25 08:17 01/11/25 08:17
Last Documented Vital Signs
Temp Pulse Resp BP Pulse Ox
97.9 F 84 16 133/69 98
01/11/25 08:17 01/11/25 13:36 01/11/25 13:36 01/11/25 13:36 01/11/25 13:36
Residential Fee Appraiser consulted with Physician
Residential Fee Appraiser consulted with physician?: Yes
Name of Physician Consulted: Jarret
<James Wheat, DO - Last Filed: 01/11/25 11:47>
Orders/Labs/Results
Orders:
Orders
01/11/25 08:49
Chen [Chen Placement- Treatment] ONCE
Reason for insertion: Chronic Chen on Admit
01/11/25 08:50
Bladder Scan- Treatment ONCE
01/11/25 09:40
Complete Blood Count/With Diff Urgent
Comprehensive Metabolic Panel Urgent
01/11/25 13:01
Ketamine [Ketamine HCl] 200 mg IM NOW STA
01/11/25 13:02
Ketamine [Ketamine HCl] 500 mg .ROUTE .STK-MED ONE
01/11/25 13:37
Urinalysis Reflex To Culture Urgent
Date Specimen was Collected: 01/11/25
Time Specimen was Collected: 08:53
Urine Microscopic Reflex Cult Urgent
Urine Culture Urgent
LINN Source: U
Specimen Description:
Date Specimen was Collected: 01/11/25
Time Specimen was Collected: 08:53
Abnormal Lab Results
01/11/25 01/11/25
09:40 13:37
WBC 12.4 H 10^3/uL
(4.8-10.8)
RBC 3.22 L 10^6/uL
(4.70-6.10)
Hgb 9.4 L g/dL
(13.0-18.0)
Hct 31.6 L %
(39.0-52.0)
MCV 98.1 H fL
(80.0-94.0)
MCHC 29.7 L g/dL
(33.0-37.0)
Abs Immat Gran (auto) 0.1 H 10^3/uL
(0-0.05)
Absolute Neuts (auto) 9.2 H 10^3/uL
(1.4-6.5)
Absolute Monos (auto) 1.7 H 10^3/uL
(0.1-0.6)
Immature Gran % 0.6 H %
(0-0.5)
Lymphocytes % 9.9 L %
(20.5-51.1)
Monocytes % 13.6 H %
(1.7-9.3)
Sodium 134 L mmol/L
(135-145)
Glucose 100 H mg/dl
(70-99)
Ur Occult Blood Reflex 4+ A
(Negative)
Leukocyte Esterase Rfl 3+ A
(Negative)
Urine Albumin (Reflex) 3+ A
(Neg - Trace)
01/11/25 09:40
01/11/25 09:40
Vital Signs
Initial and Last Documented VS:
Initial Vital Signs
Temp Pulse Resp BP Pulse Ox
97.9 F 70 19 113/55 98
01/11/25 08:17 01/11/25 08:17 01/11/25 08:17 01/11/25 08:17 01/11/25 08:17
Last Documented Vital Signs
Temp Pulse Resp BP Pulse Ox
97.9 F 84 16 133/69 98
01/11/25 08:17 01/11/25 13:36 01/11/25 13:36 01/11/25 13:36 01/11/25 13:36
<CLYDE Hernandez - Last Filed: 01/11/25 14:50>
MDM/Problems Addressed
Differential Diagnosis Includes:
not limited to :hematuria
MDM/Problems Addressed:
Patient is a 69-year-old male who was sent for with an actual disability was sent for hematuria. Patient is on Eliquis for paroxysmal A-fib. RNs and myself tried multiple times to insert Chen and were not successful.
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 Patient mated to the hospitalist service.
Chronic conditions affecting care:
Intellectual disability chronic Chen catheter enlarged prostate
<CLYDE Hernandez - Last Filed: 01/11/25 14:50>
*Pulse Oximetry
SaO2: 98
Oxygen Mode of Delivery: Room air
Patient hypoxic: no
*Critical Care Note
Total Time (30-74mins, 75-104mins- exclusive of procedures): Not Applicable
<CLYDE Hernandez - Last Filed: 01/11/25 14:50>
Patient Management
Discussion with other providers: Yacht Hand (urology )
ED Attending Note
<CLYDE eHrnandez - Last Filed: 01/11/25 14:50>
-
Portions of this chart may have been created with voice recognition software.� Occasional wrong word or��sound alike� substitutions may have occurred due to the inherent limitations of voice recognition software.
<James Wheat DO - Last Filed: 01/11/25 11:47>
ED Attending Note
Patient seen and examined by attending physician: Yes
I performed the substantive portion of visit, reviewed & personally made and approve the management plan that is documented in note by myself or HUYEN.: Yes
ED Attending Note:
I evaluated patient at bedside. The patient does have evidence of MR and is currently at a detention. Mild leukocytosis. Planned on changing the Chen however we are unable to place a new catheter. We are anticipating starting CBI.
Discharge Plan
Departure
Patient Disposition: Admit
Date of Disposition: 01/11/25
Time of Disposition: 13:54
Admit to: Med/Surg
Admit to doctor: hospitalist
Presentation/result/management discussed w/ accepting MD/DO: Hospitalist
Patient with high blood pressure during this ER visit?: No
Condition: Fair
Covid-19: Not Applicable
Discharge Problem:
Hematuria
Prescriptions:
No Action
loperamide 2 MG capsule
2 mg PO Q4HPRN PRN (Reason: loose stool)
famotidine [Acid Controller] 20 MG tablet
20 mg PO BID
magnesium hydroxide 30 ML suspension
30 ml PO Q12NTYY PRN (Reason: constipation)
tamsulosin 0.4 MG capsule
0.4 mg PO BID
mirtazapine 30 MG tablet
30 mg PO HS
buspirone 15 MG tablet
15 mg PO BID
ketoconazole 2 % shampoo
1 applic TOPICAL MOTH
dextromethorphan-guaifenesin [Chest Congestion Relief DM] 10-100 mg/5 mL Syrup
10 ml PO Q6HPRN PRN (Reason: cough/congestion)
sodium chloride [Stacey 128] 5 % ointment
1 applic RIGHT EYE BID
Debrox 6.5 % Drops
4 drp EACH EAR MONTHLY
Rx Instructions:
Instill 4 drps in both ears at bedtime on the 1st day of each month
olopatadine 0.2 % Drops
1 drp BOTH EYES DAILYPRN PRN (Reason: allergic symptoms/itching)
Desitin Daily Defense 13 % Cream
1 applic TOPICAL DAILYPRN PRN (Reason: apply to groin/buttocks)
Nuedexta 20-10 mg capsule
1 cap PO DAILY
apixaban 5 mg Tablet
5 mg PO BID
acetaminophen 325 mg Tablet
650 mg PO Q4HPRN PRN (Reason: MILD pain, headache, temp>100.4)
erythromycin 5 mg/gram (0.5 %) ointment
1 applic BOTH EYES HS
Rx Instructions:
1/2 INCH RIBBON INTO LOWER EYELID OF BOTH EYES
levothyroxine [Synthroid] 75 mcg Tablet
75 mcg PO DAILY
triamcinolone acetonide 0.1 % Ointment
1 applic TOPICAL BIDPRN PRN (Reason: RASH)
Hemorrhoidal 0.25-3-12 % Cream
1 applic MS Q6HPRN PRN (Reason: HEMORRHOIDAL)
Triple Antibiotic 3.5-400-5,000 mo-ytut-sfna Ointment In Packet
1 applic TOPICAL QIDPRN PRN (Reason: SCRAPES,ABRASIONS)
sennosides [senna] 8.6 mg tablet
17.2 mg PO HSPRN PRN (Reason: IF NO BM BY 3RD DAY)
bisacodyl 10 mg suppository
10 mg MS DAILYPRN PRN (Reason: IF NO BM BY 4TH DAY)
polyethylene glycol 3350 17 gram/dose powder
17 g PO DAILY
docusate sodium [Silace] 50 mg/5 mL Liquid
100 mg PO [id number] PRN (Reason: constipation)
zinc oxide 20 % Ointment
1 applic TOPICAL DAILYPRN PRN (Reason: chela area)
ferrous sulfate 325 mg (65 mg iron) tablet
325 mg PO BID
metoprolol tartrate 25 mg tablet
12.5 mg PO BID
Referrals:
UNKNOWN - PT DOES,NOT KNOW [Family Provider]
Interventions
Interventions:
*Risk Screen - Suicide Last Done: 01/11/25 08:17
*General Assessment Last Done: 01/11/25 08:17
*Neglect/Abuse Screening Last Done: 01/11/25 08:17
*ED- Fall Risk Assessment Last Done: 01/11/25 09:15
*ED COVID-19 Vaccine History Last Done: 01/11/25 09:15
*ED Influenza Vaccine History Last Done: 01/11/25 09:29
PA-Jtvgkq-Vlbnmrogqu Assessment Last Done: 01/11/25 09:15
ED-Male Genitourinary Assessment Last Done: 01/11/25 09:15
Discharge Date and Time
Print Language: KENYAN
[2025-01-11 09:54] LABS: Hematocrit 31.6 % (39.0-52.0); Hemoglobin 9.4 g/dL (13.0-18.0); Mean Corp Hgb Conc. 29.7 g/dL (33.0-37.0); Mean Corpuscular Volume 98.1 fL (80.0-94.0); Nucleated Red Blood Cells % 0 % (-); Platelet Count 334 10^3/uL (130-400); Red Cell Dist. Width 13.8 % (11.5-14.5)
[2025-01-11 10:12] LABS: ALT (SGPT) 12 U/L (0-50); AST (SGOT) 19 U/L (17-59); Albumin 3.7 g/dl (3.5-5.0); Alkaline Phosphatase 59 U/L (38-126); Blood Urea Nitrogen 15 mg/dl (9-20); Calcium 9.4 mg/dl (8.4-10.2); Carbon Dioxide 28 mmol/L (22-30); Chloride 103 mmol/L (98-107); Glucose 100 mg/dl (70-99); Potassium 4.5 mmol/L (3.5-5.1); Sodium 134 mmol/L (135-145); Total Protein 7.6 g/dl (6.3-8.2); eGFR > 60.00
[2025-01-11] MEDS: KETAMINE HCL 200 MG IM (13:05)
--- NOTE | 2025-01-11 14:11 | HPS.HSE ---
Addendum entered and electronically signed by Lisa Santos MD 01/11/25 16:33:
This is an addendum to H&P written by Katie Ramirez on 01/11/2025. �Patient seen and examined independently with [employer] STOCK CLERK.
69-year-old male past medical history of BPH status post TURP with subsequent bladder neck contracture status post dilation with chronic Chen catheter, iron deficiency anemia, hypertension, intellectual disability/autism, paroxysmal atrial
fibrillation on Eliquis, hypothyroidism, bipolar disorder, anxiety, depression, GERD, history of right upper extremity DVT in October 2024, normocytic anemia, presenting with blood in the Chen catheter bag today at custodial.
Vital signs unremarkable.
Labs show leukocytosis of 12. �Hemoglobin 9.4 which is stable.
Patient with hematuria could be secondary to traumatic Chen catheter in the setting of BPH status post TURP. �Urinalysis pending. �Chen catheter was attempted to be replaced by emergency room which was unsuccessful so urology inserted Chen
catheter. �If bleeding improved CBI not necessary as per urology.
Hold Eliquis for now but will need to restart when able with resolution of hematuria given recent DVT right upper extremity from peripheral line.
Original Note:
Family Physician
-
Family Physician: NOT KNOW UNKNOWN - PT DOES
Chief Complaint
-
hematuria
History of Present Illness
Patient is a 69-year-old male with past medical history significant for intellectual disability, dementia, bipolar disorder, tardive dyskinesia, paroxysmal atrial fibrillation, hypertension, GERD, hypothyroidism, and BPH who presented to [facility] ED for
evaluation of hematuria. Patient has h/o subsequent bladder neck contracture s/p dilation (PMDH) with chronic Chen. Facility staff observed hematuria this morning on rounds and brought patient for evaluation. Staff memeber denies any recent known
sickness, fever, chills, cough, shortness of breath, chest pain, nausea or vomiting.
Medical History
Past Medical History
Past Medical History: Reports Other
Additional Past Medical History:
Intellectual disability
Dementia
Bipolar disorder
Pseudobulbar affect
Tardive dyskinesia
Paroxysmal atrial fibrillation on Eliquis
Hypertension
GERD
Hypothyroidism
Vitamin B12 deficiency
Dysphagia
BPH
Nonverbal
H/o subsequent bladder neck contracture s/p dilation (PMDH)
Past Surgical History: Reports Other
Additional Past Surgical History:
TURP (2021)
Esophageal dilation (2009)
Social History
Unable to obtain full social history at this time due to: Dementia
Family History
Family History: Not pertinent
Allergies / Home Medications
Allergies reflects when Allergies were last updated in [employer].
Home Medications with original date entered in [employer]
Allergy/Medication List:
Allergies
Allergy/AdvReac Type Severity Reaction Status Date / Time
benztropine Allergy Unknown Verified 11/20/24 12:13
risperidone (From Risperdal) Allergy Unknown Verified 11/20/24 12:13
Home Medications
buspirone 15 mg tablet 15 mg PO BID Mental Health/Anxiety 07/17/21
famotidine 20 mg tablet (Acid Controller) 20 mg PO BID Gastrointestinal Issue 07/17/21
loperamide 2 mg capsule 2 mg PO Q4HPRN PRN loose stool 07/17/21
magnesium hydroxide 400 mg/5 mL oral suspension 30 ml PO [id number] PRN constipation 07/17/21
mirtazapine 30 mg tablet 30 mg PO HS Mental Health/Anxiety 07/17/21
tamsulosin 0.4 mg capsule 0.4 mg PO BID Urinary Issue 07/17/21
apixaban 5 mg tablet 5 mg PO BID Blood Clot Prevention/Tx 04/29/23
carbamide peroxide 6.5 % ear drops (Debrox) 4 drp EACH EAR MONTHLY ear problem 04/29/23
dextromethorphan 20 mg-quinidine 10 mg capsule (Nuedexta) 1 cap PO DAILY pba 04/29/23
dextromethorphan-guaifenesin 10 mg-100 mg/5 mL oral syrup (Chest Congestion Relief DM) 10 ml PO Q6HPRN PRN cough/congestion 04/29/23
ketoconazole 2 % shampoo 1 applic topical MOTH scalp problem 04/29/23
olopatadine 0.2 % eye drops 1 drp BOTH EYES DAILYPRN PRN allergic symptoms/itching 04/29/23
sodium chloride 5 % eye ointment (Stacey 128) 1 applic RIGHT EYE BID Eye Condition 04/29/23
zinc oxide 13 % topical cream (Desitin Daily Defense) 1 applic topical DAILYPRN PRN apply to groin/buttocks 04/29/23
acetaminophen 325 mg tablet 650 mg PO Q4HPRN PRN MILD pain, headache, temp>100.4 07/07/24
erythromycin 5 mg/gram (0.5 %) eye ointment 1 applic BOTH EYES HS Eye Condition 07/07/24
bisacodyl 10 mg rectal suppository 10 mg ND DAILYPRN PRN IF NO BM BY 4TH DAY 11/20/24
levothyroxine 75 mcg tablet (Synthroid) 75 mcg PO DAILY Thyroid 11/20/24
neomycin-bacitracn Zn-polymyxn 3.5 mg-400 unit-5,000 unit top oint pkt (Triple Antibiotic) 1 applic topical QIDPRN PRN SCRAPES,ABRASIONS 11/20/24
phenyleph-shark liver zrq-cerrjn-jjk 0.25 %-3 %-12 % rectal cream (Hemorrhoidal) 1 applic ND Q6HPRN PRN HEMORRHOIDAL 11/20/24
polyethylene glycol 3350 17 gram/dose oral powder 17 g PO DAILY Constipation 11/20/24
sennosides 8.6 mg tablet (senna) 17.2 mg PO HSPRN PRN IF NO BM BY 3RD DAY 11/20/24
triamcinolone acetonide 0.1 % topical ointment 1 applic topical BIDPRN PRN RASH 11/20/24
docusate sodium 50 mg/5 mL oral liquid 100 mg PO [id number] PRN constipation 01/11/25
ferrous sulfate 325 mg (65 mg iron) tablet 325 mg PO BID Supplement 01/11/25
metoprolol tartrate 25 mg tablet 12.5 mg PO BID Heart Disease/Condition 01/11/25
zinc oxide 20 % topical ointment 1 applic topical DAILYPRN PRN chela area 01/11/25
Review of Systems
-
Unable to obtain full review of systems at this time due to: Dementia
History Source: Residential
: Reports Bleeding and Chen
Physical Exam
Vital Signs
Vital Signs
Temp Pulse Resp BP Pulse Ox
97.9 F 84 16 133/69 98
01/11/25 08:17 01/11/25 13:36 01/11/25 13:36 01/11/25 13:36 01/11/25 13:36
Physical Exam
General: Well Developed, Well Nourished, No Apparent Distress and Comfortable
HEENT: NormoCephalic, Moist mucous membranes, Nose Appears Normal and Ears Appear Normal
Respiratory: Clear and Non Labored Respirations; No Wheezes, Rales or Rhonchi
Cardiac: S1/S2 and Regular Rhythm; No Murmur or Peripheral Edema
GI: Soft, Non Tender, Non Distended and Normal Bowel Sounds
Genito-urinary: Bloody Urine and Chen
Musculoskeletal: No Clubbing, No Cyanosis and No Edema
Skin: Warm
Neuro: Awake
Psych: Calm
Laboratory Results
-
01/11/25 09:40
01/11/25 09:40
Laboratory Results
Total Bilirubin 0.6 mg/dl (0.2-1.3) 01/11/25 09:40
AST 19 U/L (17-59) 01/11/25 09:40
ALT 12 U/L (0-50) 01/11/25 09:40
Alkaline Phosphatase 59 U/L (38-126) 01/11/25 09:40
Data Reviewed
-
Lab Data: Labs Reviewed by me (WBC 12.4, hgb 9.4, hct 31.6)
Impression/Plan
-
IMPRESSION/PLAN:
#hematuria 2/2 trauma vs. UTI
chronic Chen, staff reports patient often pulls at tubing, found this morning with hematuria
WBC 12.4, hgb 9.4, hct 31.6
- Admit to med/surg
- Consult Urology
- monitor for improved bleeding, if worsens will need CBI per Urology
#BPH
- continue tamsulosin
#Dementia
#Bipolar disorder
- continue buspirone, mirtazapine, Nuedexta
#Paroxysmal atrial fibrillation
- hold Eliquis while acutely bleeding (will need to resume when hematuria resolves r/t recent DVT 10/2024)
- continue metoprolol
#Hypertension
- continue metoprolol
#GERD
- continue famotidine
#Hypothyroidism
- continue levothyroxine
#Intellectual disability
#Pseudobulbar affect
#Tardive dyskinesia
#Nonverbal
chronically nonverbal since age 3, will say 1 word at a time asking for things
#Vitamin B12 deficiency
#Dysphagia
Code status: DNR
DVT prophylaxis: SCDs
[2025-01-11 14:29] LABS: Urine Character Cloudy (Clear)
[2025-01-11 15:01] LABS: Urine Red Blood Cell >100 /HPF (0-2)
--- NOTE | 2025-01-11 20:00 | CONS.URO ---
Consultation
-
Date/Time Consultation Performed: 1200 01/11
Performing Provider: Peffer
Reason for Consultation: Hematuria
Medical History
History of Present Illness
69M with intellectual disability known to our practice with hx of urinary retention and UTIs
s/p TURP prior TURP in 2019 and last had a procedure around 2021 for dilation/resection of bladder neck contracture
Has a history of UTIs and persistent/recurrent chronic urinary retention with PVRs around 200cc range
Last treated for a UTI in 10/2024
CT scan showed distended bladder with b/l hydroureter
Also a significant focal L bladder wall thickening suspicious for malignancy
Discharged from with a joel catheter and followed up with Dr. Shelby 12/28 for joel change
He was scheduled for a cystoscopy 02/13/25
He presented to ED with gross hematuria
AC on Eliquis, recent RUE DVT
Past Medical History
Past Medical History: Reports Other
Additional Past Medical History:
Intellectual disability
Dementia
Bipolar disorder
Pseudobulbar affect
Tardive dyskinesia
Paroxysmal atrial fibrillation on Eliquis
Hypertension
GERD
Hypothyroidism
Vitamin B12 deficiency
Dysphagia
BPH
Nonverbal
H/o subsequent bladder neck contracture s/p dilation (PMDH)
Past Surgical History: Reports Other
Additional Past Surgical History:
TURP (2021)
Esophageal dilation (2009)
Family History
Family History: Reviewed & Not Pertinent
Allergies/Home Medications
Allergies
Allergy/AdvReac Type Severity Reaction Status Date / Time
benztropine Allergy Unknown Verified 11/20/24 12:13
risperidone (From Risperdal) Allergy Unknown Verified 11/20/24 12:13
Home Medications
�Medication �Instructions �Recorded �Confirmed �Type
buspirone 15 mg tablet 15 mg PO BID Mental Health/Anxiety 07/17/21 01/11/25 History
famotidine 20 mg tablet (Acid 20 mg PO BID Gastrointestinal Issue 07/17/21 01/11/25 History
Controller)
loperamide 2 mg capsule 2 mg PO Q4HPRN PRN loose stool 07/17/21 01/11/25 History
magnesium hydroxide 400 mg/5 mL 30 ml PO [id number] PRN constipation 07/17/21 01/11/25 History
oral suspension
mirtazapine 30 mg tablet 30 mg PO HS Mental Health/Anxiety 07/17/21 01/11/25 History
tamsulosin 0.4 mg capsule 0.4 mg PO BID Urinary Issue 07/17/21 01/11/25 History
apixaban 5 mg tablet 5 mg PO BID Blood Clot 04/29/23 01/11/25 History
Prevention/Tx
carbamide peroxide 6.5 % ear drops 4 drp EACH EAR MONTHLY ear problem 04/29/23 01/11/25 History
(Debrox)
dextromethorphan 20 mg-quinidine 1 cap PO DAILY pba 04/29/23 01/11/25 History
10 mg capsule (Nuedexta)
dextromethorphan-guaifenesin 10 10 ml PO Q6HPRN PRN 04/29/23 01/11/25 History
mg-100 mg/5 mL oral syrup (Chest cough/congestion
Congestion Relief DM)
ketoconazole 2 % shampoo 1 applic topical MOTH scalp problem 04/29/23 01/11/25 History
olopatadine 0.2 % eye drops 1 drp BOTH EYES DAILYPRN PRN 04/29/23 01/11/25 History
allergic symptoms/itching
sodium chloride 5 % eye ointment 1 applic RIGHT EYE BID Eye 04/29/23 01/11/25 History
(Stacey 128) Condition
zinc oxide 13 % topical cream 1 applic topical DAILYPRN PRN 04/29/23 01/11/25 History
(Desitin Daily Defense) apply to groin/buttocks
acetaminophen 325 mg tablet 650 mg PO Q4HPRN PRN MILD pain, 07/07/24 01/11/25 History
headache, temp>100.4
erythromycin 5 mg/gram (0.5 %) eye 1 applic BOTH EYES HS Eye Condition 07/07/24 01/11/25 History
ointment
bisacodyl 10 mg rectal suppository 10 mg NV DAILYPRN PRN IF NO BM BY 11/20/24 01/11/25 History
4TH DAY
levothyroxine 75 mcg tablet 75 mcg PO DAILY Thyroid 11/20/24 01/11/25 History
(Synthroid)
neomycin-bacitracn Zn-polymyxn 3.5 1 applic topical QIDPRN PRN 11/20/24 01/11/25 History
mg-400 unit-5,000 unit top oint SCRAPES,ABRASIONS
pkt (Triple Antibiotic)
phenyleph-shark liver 1 applic NV Q6HPRN PRN HEMORRHOIDAL 11/20/24 01/11/25 History
bjv-[id number] 0.25 %-3 %-12 %
rectal cream (Hemorrhoidal)
polyethylene glycol 3350 17 17 g PO DAILY Constipation 11/20/24 01/11/25 History
gram/dose oral powder
sennosides 8.6 mg tablet (senna) 17.2 mg PO HSPRN PRN IF NO BM BY 11/20/24 01/11/25 History
3RD DAY
triamcinolone acetonide 0.1 % 1 applic topical BIDPRN PRN RASH 11/20/24 01/11/25 History
topical ointment
docusate sodium 50 mg/5 mL oral 100 mg PO [id number] PRN constipation 01/11/25 01/11/25 History
liquid
ferrous sulfate 325 mg (65 mg 325 mg PO BID Supplement 01/11/25 01/11/25 History
iron) tablet
metoprolol tartrate 25 mg tablet 12.5 mg PO BID Heart 01/11/25 01/11/25 History
Disease/Condition
zinc oxide 20 % topical ointment 1 applic topical DAILYPRN PRN chela 01/11/25 01/11/25 History
area
Physical Exam
Vital Signs
Vital Signs
Temp Pulse Resp BP Pulse Ox
98.2 F 82 16 115/45 98
01/11/25 19:50 01/11/25 19:50 01/11/25 19:50 01/11/25 19:50 01/11/25 19:50
Lab / Testing Results
Laboratory Results
01/11/25 09:40
01/11/25 09:40
Physical Exam
General: Well Developed, Well Nourished and No Apparent Distress
Respiratory: Clear and Non Labored Respirations
Genito-urinary: No Costovertebral Tend and Bloody Urine
Psych: Confused
Assessment / Plan
-
69M with chronic urinary retention, indwelling joel
History of TURP and bladder neck contracture
Anticoagulated on Eliquis for Afib and DVT
Admitted for gross hematuria, difficult joel
- 22Fr 3 way joel placed over a wire following urethral dilation. Bladder neck contracture still present to some degree but passed without much difficulty. Some clot evacuated and mild residual hematuria. Sedation with IM ketamine was required due
to patient agitation and baseline intellectual disability
- CBI overnight to trend bleeding
- Hold Eliquis
Plan for discharge with joel in place, follow up as scheduled with Dr. Shelby for cystoscopy
[2025-01-11] MEDS: LOPRESSOR 12.5 MG PO (20:38)
[2025-01-11] MEDS: FEOSOL 325 MG PO (20:38)
[2025-01-11] MEDS: FLOMAX 0.4 MG PO (20:38)
[2025-01-11] MEDS: BUSPAR 15 MG PO (20:39)
[2025-01-11] MEDS: MERREM 500 MG IV (20:39)
[2025-01-11] MEDS: STERILE WATER FOR INJECTION 10 ML IV (20:39)
[2025-01-11] MEDS: MURO 5% OPHTHALMIC OINTMENT 1 APPLIC RIGHT EYE (20:50)
[2025-01-11] MEDS: ERYTHROMYCIN 0.5% OPHTHALMIC OINTMENT 1 APPLIC BOTH EYES (22:22)
[2025-01-11] MEDS: REMERON 30 MG PO (22:22)
[2025-01-11] MEDS: PEPCID 20 MG PO (22:22)
[2025-01-12] MEDS: MERREM IV (01:59)
[2025-01-12] MEDS: STERILE WATER FOR INJECTION IV ×4 (02:00→20:40)
[2025-01-12] MEDS: STERILE WATER FOR INJECTION 10 ML IV (02:22)
[2025-01-12] MEDS: MERREM 500 MG IV (02:23)
[2025-01-12 06:06] LABS: Hematocrit 27.2 % (39.0-52.0); Hemoglobin 8.4 g/dL (13.0-18.0); Mean Corp Hgb Conc. 30.9 g/dL (33.0-37.0); Mean Corpuscular Volume 94.4 fL (80.0-94.0); Platelet Count 320 10^3/uL (130-400); Red Cell Dist. Width 13.7 % (11.5-14.5)
[2025-01-12 06:28] LABS: Blood Urea Nitrogen 16 mg/dl (9-20); Calcium 8.7 mg/dl (8.4-10.2); Carbon Dioxide 28 mmol/L (22-30); Chloride 106 mmol/L (98-107); Estimated Creatinine Clearance 55 ml/min; Glucose 87 mg/dl (70-99); Potassium 4.3 mmol/L (3.5-5.1); Sodium 137 mmol/L (135-145); eGFR > 60.00
[2025-01-12] MEDS: SYNTHROID 75 MCG PO (06:43)
[2025-01-12 07:58] VITALS: BP 121/57
--- NOTE | 2025-01-12 08:18 | W.PN.HOSP.TC ---
Today's Communication/Plan
-
Stop Merrem
cont current mgmt
Assessment / Plan
Assessment / Plan
69yo M with TArdive dyskinesia, pseudobulbar affect, paroxysmal Afib on eliquiscognitive impairment, chronic R eye deviation, anxiety, glaucoma, JHONNY, hemorrhoids, hypothyroidism, HTN, BPH s/p TURP @2019 and discharge from after treatment for ESBL
UTI on 11/26/24, scheduled for cystoscopy in Jan due to concern for possible bladder CA came with hematuria and urinary retetion, s/p CBI. PAtient was found o catheter associated RUE DVT on his previous admission
A/P:
#Acute blood loss anemia 2/2 hematuria
#BPH
#Acute urinary retention
Afebrile with minimal leukocytosis and grossly bloody UA - no direct signs of infection - stop Abx
Joel into be d/c on joel
follow serial H&H, transfuse to keep Hgb >7
Cont CBI as pr urology
#R eye chronic deviation
#Probable recent Conjunctivitis
family concerned for 2 weeks of R eye kept closed. as treated for conjunctivitis
Bedside - no swelling or redness seen, unclear reason. Advised outpatient ophthalmology
#Recent non-occlusive DVT RUE
#Afib, unspecified
Hold Eliquis due to anemia
Family informed on risks
Since catheterremoved from RUE - no direct indication for bridging
Restart aticoag JANETH depending on bleeding risk - defer to Urology
#Tardive dyskinesia
#Pseudobulbar affect
#Anxiety d/o
#Intellectual disability
#Essential HTN
#dysphagia
#Bipolar D/O
cont home meds
DVT ppx SCDs
DNR/DNI
I have spent at least 51min reviewing chart, test results, communication with consultants and providing direct patient care
Anticipated Discharge: 24 - 48 hours
Subjective/Interval History
-
Date of Service: January 12, 2025
Objective Data
-
Labs:
Laboratory Results
01/12/25
05:57
WBC 10.8
Hgb 8.4 L
Hct 27.2 L
Plt Count 320
Sodium 137
Potassium 4.3
Chloride 106
Carbon Dioxide 28
BUN 16
Creatinine 1.0
Glucose 87
Calcium 8.7
Vital Signs:
Vital Signs
Temp Pulse Resp BP Pulse Ox
98.6 F 77 16 121/57 94
01/12/25 07:58 01/12/25 07:58 01/12/25 07:58 01/12/25 07:58 01/12/25 07:58
I&O
01/11/25 01/12/25 01/13/25
06:59 06:59 06:59
Intake Total 1240 / 1240
Output Total 3675 / 3675
Balance -2435 / -2435
Review of Systems
-
Unable to obtain full review of systems at this time due to: Patient Non-verbal
History Source: Family
Physical Exam
-
General: No Apparent Distress and Comfortable
HEENT: Moist Mucous Membranes and Other (R eye closed, not swallen)
Respiratory: Clear to Auscultation
Cardiac: Regular Rhythm
GI: Soft, Nontender and Nondistended
Neuro: Awake and Alert
Psych: Calm
[2025-01-12] MEDS: BUSPAR 15 MG PO ×2 (08:28→20:38)
[2025-01-12] MEDS: LOPRESSOR 12.5 MG PO ×2 (08:29→20:45)
[2025-01-12] MEDS: FEOSOL 325 MG PO ×2 (08:29→20:38)
[2025-01-12] MEDS: MIRALAX PO (08:29)
[2025-01-12] MEDS: MURO 5% OPHTHALMIC OINTMENT 1 APPLIC RIGHT EYE ×2 (08:29→20:41)
--- NOTE | 2025-01-12 08:49 | W.PN.URO.CBU ---
Today's Communication / Plan
-
- Hematuria resolved off CBI this AM
- Cap CBI port
- Hold Eliquis for 2-3 if acceptable risk given recent UE DVT
STable for discharge from urology standpooint
Discharge with joel in place, follow up as scheduled with Dr. Shelby for cystoscopy next month
Assessment / Plan
-
69M with chronic urinary retention, indwelling joel
History of TURP and bladder neck contracture
Anticoagulated on Eliquis for Afib and DVT
Admitted for gross hematuria, difficult joel
- 22Fr 3 way joel placed over a wire following urethral dilation. Bladder neck contracture still present to some degree but passed without much difficulty. Some clot evacuated and mild residual hematuria. Sedation with IM ketamine was required due
to patient agitation and baseline intellectual disability
- Hematuria resolved off CBI this AM
- Cap CBI
- Hold Eliquis for 2-3 if acceptable risk given recent UE DVT
Discharge with joel in place, follow up as scheduled with Dr. Shelby for cystoscopy next month
Diagnosis
-
Date of Service: January 12, 2025
-
Patient Diagnosis:
Bladder neck contracture
Hematuria
Post Op Day:
Subjective
-
no events overnight
Objective
-
Vital Signs
Temp Pulse Resp BP Pulse Ox
98.6 F 77 16 121/57 94
01/12/25 07:58 01/12/25 07:58 01/12/25 07:58 01/12/25 07:58 01/12/25 07:58
Intake and Output
01/11/25 01/12/25 01/13/25
06:59 06:59 06:59
Intake Total 1240 / 1240
Output Total 3675 / 3675
Balance -2435 / -2435
Intake:
Oral fluids 240 / 240
Joel intermittent irrigation 1000 / 1000
Output:
Urine, Joel 450 / 450
Urine, Voided 322 / 3225
Laboratory Results
01/12/25 05:57
01/12/25 05:57
Physical Exam
-
General - well developed, well nourished, no acute distress
Chest - clear
Abdomen - soft, non-tender
Joel in place, clear urine off CBI
--- NOTE | 2025-01-12 11:50 | CM ---
CM spoke w/ May null ([phone] ext [phone]), from [facility], initial assessment completed. Patient is a 69-year-old male with past medical history significant for intellectual disability, dementia, bipolar disorder, tardive
dyskinesia, paroxysmal atrial fibrillation, hypertension, GERD, hypothyroidism, and BPH who presented to [facility] ED for evaluation of hematuria.
Patient resides in a care facility, similarly to a community retirement, for individuals w/ intellectual disabilities. Patient is independent w/ ambulation, no device required. Per nurseMay, patient most of the time can ambulate independently,
does require assistance if he's weak but for the most part can ambulate independently w/ no device. Patient has limited verbalization, he 'babbles' which is normal for him. For ADLs, patient requires verbal assistance to get things done. Patient is
able to self feed and toilet independently. senior care has / staff support.
Denies SNF hx, current [facility] services.
PCP: Bryan Cardona ([facility])
Pharmacy: [facility]
NurseMay, to be added as a contact to follow medical progress and d/c planning. Updated admissions.
Per DAYNA Olvera to call [phone] ext [phone] OR cell [phone] for continued updates and d/c
[facility]
Report: [phone] ext [phone]

Plan: Return to residential home, [facility]/ [facility]
[2025-01-12 15:18] VITALS: BP 116/43
[2025-01-12] MEDS: ERYTHROMYCIN 0.5% OPHTHALMIC OINTMENT 1 APPLIC BOTH EYES (21:44)
[2025-01-12] MEDS: PEPCID 20 MG PO (21:44)
[2025-01-12] MEDS: REMERON 30 MG PO (21:47)
[2025-01-12 23:21] VITALS: BP 113/63
[2025-01-13] MEDS: STERILE WATER FOR INJECTION IV ×3 (02:22→13:05)
[2025-01-13] MEDS: SYNTHROID 75 MCG PO (05:23)
[2025-01-13 07:45] VITALS: BP 117/55
[2025-01-13 08:08] LABS: Hematocrit 29.0 % (39.0-52.0); Hemoglobin 8.8 g/dL (13.0-18.0); Mean Corp Hgb Conc. 30.3 g/dL (33.0-37.0); Mean Corpuscular Volume 94.2 fL (80.0-94.0); Nucleated Red Blood Cells % 0 % (-); Platelet Count 335 10^3/uL (130-400); Red Cell Dist. Width 14.1 % (11.5-14.5)
[2025-01-13] MEDS: FEOSOL 325 MG PO (08:59)
[2025-01-13] MEDS: LOPRESSOR 12.5 MG PO (08:59)
[2025-01-13] MEDS: BUSPAR 15 MG PO (08:59)
[2025-01-13] MEDS: MIRALAX 17 GRAMS PO (08:59)
[2025-01-13] MEDS: MURO 5% OPHTHALMIC OINTMENT 1 APPLIC RIGHT EYE (09:00)
--- NOTE | 2025-01-13 10:47 | W.PN.HOSP.TC ---
Addendum entered and electronically signed by Luis Solo MD 01/13/25 14:46:
do n ot use billing under this note, use dc summary billing instead
Original Note:
Today's Communication/Plan
-
ID cosnult
D/C if no Abx planned
Assessment / Plan
Assessment / Plan
69yo M with TArdive dyskinesia, pseudobulbar affect, paroxysmal Afib on eliquis, cognitive impairment, chronic R eye deviation, anxiety, glaucoma, JHONNY, hemorrhoids, hypothyroidism, HTN, BPH s/p TURP @2019 and discharge from after treatment for
ESBL UTI on 11/26/24, scheduled for cystoscopy in [facility] due to concern for possible bladder CA came with hematuria and urinary retention, s/p CBI. Patient was found o catheter associated RUE DVT on his previous admission
A/P:
#Acute blood loss anemia 2/2 hematuria
#BPH
#chronic urinary retention
#BActeriuria
Hematuria most likely 2/2 patient pulled on Joel as per family bbedside. With MRSA and Pseudomonas in urine - unclear if needs treatment, most likely colonization only with no fever and no leukocytosis. Get ID opinion
Afebrile with minimal leukocytosis and grossly bloody UA - no direct signs of infection - stop Abx
Joel into be d/c on joel
follow serial H&H, transfuse to keep Hgb >7
Completed CBI, urine non
#R eye chronic deviation
#Probable recent Conjunctivitis
family concerned for 2 weeks of R eye kept closed. as treated for conjunctivitis
Bedside - no swelling or redness seen, unclear reason. Advised outpatient ophthalmology
#Recent non-occlusive DVT RUE
#Afib, unspecified
Hold Eliquis due to anemia
Family informed on risks
Since catheterremoved from RUE - no direct indication for bridging
Restart aticoag JANETH depending on bleeding risk - defer to Urology
#Tardive dyskinesia
#Pseudobulbar affect
#Anxiety d/o
#Intellectual disability
#Essential HTN
#dysphagia
#Bipolar D/O
cont home meds
DVT ppx SCDs
DNR/DNI
I have spent at least 36min reviewing chart, test results, communication with consultants and providing direct patient care
Anticipated Discharge: Within 24 hours
Subjective/Interval History
-
Date of Service: January 13, 2025
Objective Data
-
Labs:
Laboratory Results
01/13/25
06:57
WBC 10.8
Hgb 8.8 L
Hct 29.0 L
Plt Count 335
Vital Signs:
Vital Signs
Temp Pulse Resp BP Pulse Ox
98.2 F 75 18 117/55 96
01/13/25 07:45 01/13/25 07:45 01/13/25 07:45 01/13/25 07:45 01/13/25 07:45
I&O
01/12/25 01/13/25 01/14/25
06:59 06:59 06:59
Intake Total 1240 / 1240 480 / 480
Output Total 3675 / 3675 1800 / 1800
Balance -2435 / -2435 -1320 / -1320
Review of Systems
-
Unable to obtain full review of systems at this time due to: Dementia
History Source: Family
Physical Exam
-
General: No Apparent Distress
Genito-urinary: Clear Urine and Joel
Neuro: Awake and Alert
Psych: Calm
--- NOTE | 2025-01-13 13:06 | W.DCSUMMARY ---
Discharge Summary
Discharge Data
Date of Admission: 01/12/25
Date of Discharge: 01/13/25
-
Pending Results: No
Hospital Course
69yo M with TArdive dyskinesia, pseudobulbar affect, paroxysmal Afib on eliquis, cognitive impairment, chronic R eye deviation, anxiety, glaucoma, JHONNY, hemorrhoids, hypothyroidism, HTN, BPH s/p TURP @2019 and discharge from after treatment for
ESBL UTI on 11/26/24, scheduled for cystoscopy in Jan due to concern for possible bladder CA came with hematuria and urinary retention, s/p CBI. Patient was found catheter associated RUE DVT on his previous admission. Hematuria resolved. ID evaluated
for bacteriuria: no Abx advised with insufficient CFU to justify active infection. Medically stable to be d/c home and to restart Eliquis with outpatient urology follow up. Hgb stable for 48h before d/c
I have spent at least 36min reviewing chart, test results, communication with consultants and providing direct patient care
Patient was managed for:
#Acute blood loss anemia 2/2 hematuria
#BPH
#chronic urinary retention
#Bacteriuria
#R eye chronic deviation
#Probable recent Conjunctivitis
#Recent non-occlusive DVT RUE
#Afib, unspecified
#Tardive dyskinesia
#Pseudobulbar affect
#Anxiety d/o
#Intellectual disability
#Essential HTN
#dysphagia
#Bipolar D/O
Discharge Plan
-
Patient Disposition: Home with Home Care
Discharge Diagnosis/Procedures: Hematuria
Diet: Low Cholesterol
Activity: As tolerated
Driving Restrictions: No driving
Referrals:
Macho Shelby MD [Active, Urology]
Referral Note: Please call [facility] to prepone (move up) the date of your originally scheduled cystoscopy on 02/13/25.
Dr. Shelby will have this scheduled under sedation in the OR for comfort purposes in the coming weeks.
UNKNOWN - PT DOES,NOT KNOW [Unknown Provider]
Prescriptions:
Continued
loperamide 2 MG capsule
2 mg PO Q4HPRN PRN (Reason: loose stool)
famotidine [Acid Controller] 20 MG tablet
20 mg PO BID
magnesium hydroxide 30 ML suspension
30 ml PO [id number] PRN (Reason: constipation)
tamsulosin 0.4 MG capsule
0.4 mg PO BID
mirtazapine 30 MG tablet
30 mg PO HS
buspirone 15 MG tablet
15 mg PO BID
ketoconazole 2 % shampoo
1 applic TOPICAL MOTH
dextromethorphan-guaifenesin [Chest Congestion Relief DM] 10-100 mg/5 mL Syrup
10 ml PO Q6HPRN PRN (Reason: cough/congestion)
sodium chloride [Stacey 128] 5 % ointment
1 applic RIGHT EYE BID
Debrox 6.5 % Drops
4 drp EACH EAR MONTHLY
Rx Instructions:
Instill 4 drps in both ears at bedtime on the 1st day of each month
olopatadine 0.2 % Drops
1 drp BOTH EYES DAILYPRN PRN (Reason: allergic symptoms/itching)
Desitin Daily Defense 13 % Cream
1 applic TOPICAL DAILYPRN PRN (Reason: apply to groin/buttocks)
Nuedexta 20-10 mg capsule
1 cap PO DAILY
apixaban 5 mg Tablet
5 mg PO BID
acetaminophen 325 mg Tablet
650 mg PO Q4HPRN PRN (Reason: MILD pain, headache, temp>100.4)
erythromycin 5 mg/gram (0.5 %) ointment
1 applic BOTH EYES HS
Rx Instructions:
1/2 INCH RIBBON INTO LOWER EYELID OF BOTH EYES
levothyroxine [Synthroid] 75 mcg Tablet
75 mcg PO DAILY
triamcinolone acetonide 0.1 % Ointment
1 applic TOPICAL BIDPRN PRN (Reason: RASH)
Hemorrhoidal 0.25-3-12 % Cream
1 applic SD Q6HPRN PRN (Reason: HEMORRHOIDAL)
Triple Antibiotic 3.5-400-5,000 [id number] Ointment In Packet
1 applic TOPICAL QIDPRN PRN (Reason: SCRAPES,ABRASIONS)
sennosides [senna] 8.6 mg tablet
17.2 mg PO HSPRN PRN (Reason: IF NO BM BY 3RD DAY)
bisacodyl 10 mg suppository
10 mg SD DAILYPRN PRN (Reason: IF NO BM BY 4TH DAY)
polyethylene glycol 3350 17 gram/dose powder
17 g PO DAILY
docusate sodium 50 mg/5 mL Liquid
100 mg PO [id number] PRN (Reason: constipation)
zinc oxide 20 % Ointment
1 applic TOPICAL DAILYPRN PRN (Reason: chela area)
ferrous sulfate 325 mg (65 mg iron) tablet
325 mg PO BID
metoprolol tartrate 25 mg tablet
12.5 mg PO BID
Discharge Orders:
Discharge Patient (As Directed); Ordered 01/13/25
Ordered By: Luis Solo
Discharge Date and Time
Print Language: GUYANESE
--- NOTE | 2025-01-13 13:41 | CON.ID ---
Consultation
-
Date/Time Consultation Requested: 01/13/25 9:01
Date/Time Consultation Performed: 01/13/25 13:42
Requesting Provider: Dr Solo
Performing Provider: Dr Clark
Reason for Consultation: bacteriuria
Chief Complaint / Past History
Chief Complaint
hematuria
History of Present Illness
Mr Lord is a 69 year old male with intellectual disability (not able to provide history, nonverbal), afib on eliquis, chronic joel for bladder stricture last intervention 2021, h/o TURP x2 who presented here on 01/11 for hematuria. He
chronically has a PVR around 200 ccs. Caregiver reported patient pulls on his catheter. Staff memeber denies any recent known sickness, fever, chills, cough, shortness of breath, chest pain, nausea or vomiting. Last joel change was 12/28.
Since arrival patient has been afebrile, bp stable, wbc initially 14 then normalized to 10.8 on HD2, hgb 9.4, plt 334, no left shift,na 134, cr 1.0, UA with 3+ leuk esterase and >100 RBC/hpf, could not quantify WBC, urine culture with 15 K MRSA and
25 K Pseudonas. Patients ojel was attempted to be exchanged in the ER and was unsuccessful. Urology was consulted and put in a [address] way catheter. 11/21 CT a/p bilateral perinephric stranding, focal urinary baldder thickening suspicious for neoplasm.
He has outpatient follow up with Dr Shelby scheduled next month. He was started on CBI and hematuria cleared. ID is asked to comment on the need for antibiotics.
Past History
Additional Past Medical History:
Intellectual disability
Dementia
Bipolar disorder
Pseudobulbar affect
Tardive dyskinesia
Paroxysmal atrial fibrillation on Eliquis
Hypertension
GERD
Hypothyroidism
Vitamin B12 deficiency
Dysphagia
BPH
Nonverbal
H/o subsequent bladder neck contracture s/p dilation (PMDH)
Additional Past Surgical History:
TURP (2021)
Esophageal dilation (2009)
Allergy History:
benztropine Allergy (Verified 11/20/24 12:13)
Unknown
risperidone (From Risperdal) Allergy (Verified 11/20/24 12:13)
Unknown
Medications Reviewed: Yes
Social History
Tobacco: Other (unable to obtain social history due to condition of the patient)
Living: Snf
Family History
Family History: Not Pertinent
Review of Systems
Review of Systems
unable to obtain due to the condition of the patient.
Vital Signs
Temp Pulse Resp BP Pulse Ox
98.2 F 75 18 117/55 96
01/13/25 07:45 01/13/25 07:45 01/13/25 07:45 01/13/25 07:45 01/13/25 07:45
Physical Exam
Physical Exam
Constitutional: No Acute Distress
Cardiovascular: Regular Rate and S1/S2; Negative Murmur or Rub
Pulmonary: Clear and Symmetric; Negative Wheezes, Rales or Rhonchi
Gastrointestinal: Soft, Non Tender, Non Distended and Normal Bowel Sounds
Genito-Urinary: Negative Suprapubic Tenderness
Skin: Warm and Dry; Negative Rash or Jaundice
Lab / Diagnostic Study Results
01/13/25 06:57
01/12/25 05:57
Abs Immat Gran (auto) 0.1 10^3/uL (0-0.05) H 01/13/25 06:57
Absolute Neuts (auto) 6.1 10^3/uL (1.4-6.5) 01/13/25 06:57
Absolute Lymphs (auto) 2.3 10^3/uL (1.2-3.4) 01/13/25 06:57
Absolute Monos (auto) 1.8 10^3/uL (0.1-0.6) H 01/13/25 06:57
Absolute Basos (auto) 0.1 10^3/uL (0-0.2) 01/13/25 06:57
Immature Gran % 0.8 % (0-0.5) H 01/13/25 06:57
Neutrophils % 57.0 % (42.2-75.2) 01/13/25 06:57
Lymphocytes % 20.9 % (20.5-51.1) 01/13/25 06:57
Monocytes % 17.0 % (1.7-9.3) H 01/13/25 06:57
Eosinophils % 3.7 % (0-6) 01/13/25 06:57
Basophils % 0.6 % (0-2) 01/13/25 06:57
Ur Squamous Epith Cells /LPF (Few) 01/11/25 13:37
Microbiology Results
Micro:
01/11/25 13:37 Urine Culture - Final
Urine Pseudomonas aeruginosa
Staph aureus MRSA
Assessment / Plan
Hematuria
Ruled out UTI
Chronic Joel
- urine culture with only 25K Pseudomonas and 15K MRSA is not consistent with a UTI due to low colony counts.
- no antibiotics recommended at this time
- joel was exchanged this visit
- has follow up with urology scheduled.
--- NOTE | 2025-01-13 15:33 | CM ---
CM reviewed and noted dc order
Call with [facility] nursing on -call [phone]
Pt accepted for return today with [facility]
Bedside meeting with pt and sister/Herminia
IMM verbally reviewed- copy provided
Plan to sister to transport on dc and pt to go home with her through
He will return to [facility] on Wednesday
update to [facility] via [facility]N order on chart
[facility] on-call nursing aware of plan
Nurse has already called for report
Discharge Disposition- return to [facility] care home with [facility]
Phone- [phone] Fax- [phone]
[facility] Fax- [phone]
== END 2025-01-13 17:51 | disposition home health service (06) | DRG 699 ==
LOC: 2 NORTH 07:17
PROVIDERS: Nurse Practitioner; Nurse Practitioner Family; ADMITTING PHYSICIAN Hospitalist; ATTENDING PHYSICIAN Internal Medicine; CONSULT PHYSICIAN Student in an Organized Health Care Education/Training Program; CONSULT PHYSICIAN Urology; EMERGENCY PHYSICIAN Emergency Medicine; FAMILY PHYSICIAN Internal Medicine
DX: T83.83XA Hemorrhage due to genitourinary prosthetic devices, implants and grafts, initial encounter (principal); D62 Acute posthemorrhagic anemia; Y73.2 Prosthetic and other implants, materials and accessory gastroenterology and urology devices associated with adverse incidents; F03.93 Unspecified dementia, unspecified severity, with mood disturbance; R31.9 Hematuria, unspecified; F79 Unspecified intellectual disabilities; N40.1 Benign prostatic hyperplasia with lower urinary tract symptoms; R33.8 Other retention of urine; N32.0 Bladder-neck obstruction; I48.0 Paroxysmal atrial fibrillation; B96.5 Pseudomonas (aeruginosa) (mallei) (pseudomallei) as the cause of diseases classified elsewhere; B95.62 Methicillin resistant Staphylococcus aureus infection as the cause of diseases classified elsewhere; I10 Essential (primary) hypertension; K21.9 Gastro-esophageal reflux disease without esophagitis; E03.9 Hypothyroidism, unspecified; R82.71 Bacteriuria; D72.829 Elevated white blood cell count, unspecified; F48.2 Pseudobulbar affect; G24.01 Drug induced subacute dyskinesia; E53.8 Deficiency of other specified B group vitamins; R13.10 Dysphagia, unspecified; Z66 Do not resuscitate; X58.XXXA Exposure to other specified factors, initial encounter; Z79.899 Other long term (current) drug therapy; Z79.01 Long term (current) use of anticoagulants; Z79.890 Hormone replacement therapy; Z86.718 Personal history of other venous thrombosis and embolism; Z87.440 Personal history of urinary (tract) infections
CPT/HCPCS: 51702; 51798; 80048; 80053; 81003; 81015; 85025; 85027; 87077; 87086; 87147; 87186; 96372; 99285

== ENCOUNTER 2025-01-19 07:35 | Emergency (ER) | payer MEDICARE, MEDICAID, SELFPAY ==
[2025-01-19 07:38] VITALS: BP 131/82
[2025-01-19] MEDS: VERSED 2 MG IM (08:17)
[2025-01-19 09:07] VITALS: BMI 22.3
--- NOTE | 2025-01-19 09:41 | ED.GENMED ---
History of Present Illness
General
Chief Complaint: Catheter/Tube Problem
Source: home care specialist
Exam Limitations: clinical condition
Time Seen by Provider: 01/19/25 09:24
History of Present Illness
History of Present Illness:
69-year-old male brought in for hematuria and poorly functioning catheter. Symptoms been going on for few days. Patient without complaints. No fever chills or other complaints
Past History
Past History
ED Past Medical History: HTN, Hypercholesterolemia, Psychiatric and Other (nonverbal, ID)
Social History
Tobacco: Non-smoker
Review of Systems
Review of Systems
All Other Systems: Not applicable
Constitutional: Denies fever or chills
Phy Exam
Physical Exam
Physical Exam:
GENERAL: Alert. Autistic/neurologic delay and oriented in no apparent distress
EYE: Orbits normal.
NECK: Supple
CARDIAC: Regular rate and rhythm without any obvious murmurs.
LUNGS: Clear breath sounds,normal
ABDOMEN: Soft, without focal tenderness or distention
: Hypospadias. Chen in place. Three-way. Gross blood in the bag but very little. Upon irrigation with normal saline urine came around the catheter.
NEUROLOGICAL: Alert grossly nonfocal. Delayed
SKIN: Warm and dry, no rash or lesion, no discoloration, skin intact.
MUSCULOSKELETAL: No edema,no deformity.Good color
PSYCH: Relatively cooperative
Course
Orders/Labs/Results
Orders:
Orders
01/19/25 08:17
Midazolam HCl [Versed] 2 mg IM NOW STA
Midazolam HCl [Versed] 2 mg IV NOW STA
01/19/25 09:40
Lidocaine/Epinephrine/Tetracai [Let Topical Anesthetic Gel] 9 ml .ROUTE .STK-MED ONE
01/19/25 09:44
CMP [Comprehensive Metabolic Panel] Urgent
Complete Blood Count/With Diff Urgent
01/19/25 10:20
Catheter [Chen Placement- Treatment] ONCE
Reason for insertion: Acute Retention
01/19/25 11:35
Cefdinir [Omnicef] 300 mg PO NOW STA
Abnormal Lab Results
01/19/25
09:44
WBC 11.8 H 10^3/uL
(4.8-10.8)
RBC 2.89 L 10^6/uL
(4.70-6.10)
Hgb 8.3 L g/dL
(13.0-18.0)
Hct 26.8 L %
(39.0-52.0)
MCHC 31.0 L g/dL
(33.0-37.0)
Abs Immat Gran (auto) 0.1 H 10^3/uL
(0-0.05)
Absolute Neuts (auto) 9.0 H 10^3/uL
(1.4-6.5)
Absolute Lymphs (auto) 1.1 L 10^3/uL
(1.2-3.4)
Absolute Monos (auto) 1.5 H 10^3/uL
(0.1-0.6)
Immature Gran % 0.6 H %
(0-0.5)
Neutrophils % 76.3 H %
(42.2-75.2)
Lymphocytes % 9.5 L %
(20.5-51.1)
Monocytes % 12.9 H %
(1.7-9.3)
AST 16 L U/L
(17-59)
Albumin 3.2 L g/dl
(3.5-5.0)
01/19/25 09:44
01/19/25 09:44
Vital Signs
Initial and Last Documented VS:
Initial Vital Signs
Temp Pulse Resp BP Pulse Ox
97.6 F 82 20 131/82 98
01/19/25 07:38 11/21/25 07:38 01/19/25 07:38 01/19/25 07:38 01/19/25 07:38
Last Documented Vital Signs
Temp Pulse Resp BP Pulse Ox
97.6 F 82 20 131/85 99
01/19/25 11:57 01/19/25 11:57 01/19/25 11:57 01/19/25 11:57 01/19/25 11:57
Procedures
Urinary Catheter
Procedure completed by: Myself
Type of urinary catheter: indwelling catheter (20 Albanian coud�)
Catheter size (nepali): 20
Urine description: frankly bloody
Urine output (ml): 150
MDM/Problems Addressed
Differential Diagnosis Includes:
Patient with ongoing gross hematuria and decreased urine in the bag. Appears to be obstructed. Elected to remove it and replace it. At that time we did not know that he was a difficult catheter. Discussed with urology. Will attempt a 20 Albanian
coud�.
*Pulse Oximetry
SaO2: 97
Oxygen Mode of Delivery: Room air
Patient hypoxic: no (98)
*Critical Care Note
Total Time (30-74mins, 75-104mins- exclusive of procedures): Not Applicable
Data Reviewed
Review of Other/Old Records Reveals: Labs, Records, Testing, Progress Notes and Discharge Summary
Update Note
Update Note:
Patient is stable. Urine flowing well. Urology asked for antibiotics to follow-up
ED Attending Note
-
Portions of this chart may have been created with voice recognition software.� Occasional wrong word or��sound alike� substitutions may have occurred due to the inherent limitations of voice recognition software.
Discharge Plan
Departure
Patient Disposition: Home (Routine Discharge)
Date of Disposition: 01/19/25
Time of Disposition: 11:04
Patient with high blood pressure during this ER visit?: Yes
Discharge Problem:
Gross hematuria, Obstructed catheter
Instructions: Blood in the urine (hematuria) in adults, How to Care for Your Chen Catheter, Male, BLOOD PRESSURE
Prescriptions:
New
cefdinir 300 mg capsule
300 mg PO BID 5 Days Qty: 10 0RF
No Action
loperamide 2 MG capsule
2 mg PO Q4HPRN PRN (Reason: loose stool)
famotidine [Acid Controller] 20 MG tablet
20 mg PO BID
magnesium hydroxide 30 ML suspension
30 ml PO [id number] PRN (Reason: constipation)
tamsulosin 0.4 MG capsule
0.4 mg PO BID
mirtazapine 30 MG tablet
30 mg PO HS
buspirone 15 MG tablet
15 mg PO BID
ketoconazole 2 % shampoo
1 applic TOPICAL MOTH
dextromethorphan-guaifenesin [Chest Congestion Relief DM] 10-100 mg/5 mL Syrup
10 ml PO Q6HPRN PRN (Reason: cough/congestion)
sodium chloride [Stacey 128] 5 % ointment
1 applic RIGHT EYE BID
Debrox 6.5 % Drops
4 drp EACH EAR MONTHLY
Rx Instructions:
Instill 4 drps in both ears at bedtime on the 1st day of each month
olopatadine 0.2 % Drops
1 drp BOTH EYES DAILYPRN PRN (Reason: allergic symptoms/itching)
Desitin Daily Defense 13 % Cream
1 applic TOPICAL DAILYPRN PRN (Reason: apply to groin/buttocks)
Nuedexta 20-10 mg capsule
1 cap PO DAILY
apixaban 5 mg Tablet
5 mg PO BID
acetaminophen 325 mg Tablet
650 mg PO Q4HPRN PRN (Reason: MILD pain, headache, temp>100.4)
erythromycin 5 mg/gram (0.5 %) ointment
1 applic BOTH EYES HS
Rx Instructions:
1/2 INCH RIBBON INTO LOWER EYELID OF BOTH EYES
levothyroxine [Synthroid] 75 mcg Tablet
75 mcg PO DAILY
triamcinolone acetonide 0.1 % Ointment
1 applic TOPICAL BIDPRN PRN (Reason: RASH)
Hemorrhoidal 0.25-3-12 % Cream
1 applic [place] Q6HPRN PRN (Reason: HEMORRHOIDAL)
Triple Antibiotic 3.5-400-5,000 [id number] Ointment In Packet
1 applic TOPICAL QIDPRN PRN (Reason: SCRAPES,ABRASIONS)
sennosides [senna] 8.6 mg tablet
17.2 mg PO HSPRN PRN (Reason: IF NO BM BY 3RD DAY)
bisacodyl 10 mg suppository
10 mg [place] DAILYPRN PRN (Reason: IF NO BM BY 4TH DAY)
polyethylene glycol 3350 17 gram/dose powder
17 g PO DAILY
docusate sodium 50 mg/5 mL Liquid
100 mg PO [id number] PRN (Reason: constipation)
zinc oxide 20 % Ointment
1 applic TOPICAL DAILYPRN PRN (Reason: chela area)
ferrous sulfate 325 mg (65 mg iron) tablet
325 mg PO BID
metoprolol tartrate 25 mg tablet
12.5 mg PO BID
Referrals:
Macho Shelby MD [Active, Urology] - Follow up in 5-7 days
UNKNOWN - PT DOES,NOT KNOW [Family Provider]
Activity Restrictions/Additional Instructions:
Follow-up closely with urology
Interventions
Interventions:
*Risk Screen - Suicide Last Done: 01/19/25 07:38
*General Assessment Last Done: 01/19/25 07:38
*Neglect/Abuse Screening Last Done: 01/19/25 07:38
*ED- Fall Risk Assessment Last Done: 01/19/25 07:38
*ED COVID-19 Vaccine History Last Done: 01/19/25 07:38
*ED Influenza Vaccine History Last Done: 01/19/25 07:38
*Nursing Disposition Last Done: 01/19/25 11:57
BP-Flhbdy-Zsxuqrqkzw Assessment Last Done: 01/19/25 07:38
ED-Male Genitourinary Assessment Last Done: 01/19/25 07:38
Discharge Date and Time
Discharge Date/Time: 01/19/25 11:59
Print Language: LITHUANIAN
[2025-01-19 10:06] LABS: Hematocrit 26.8 % (39.0-52.0); Hemoglobin 8.3 g/dL (13.0-18.0); Mean Corp Hgb Conc. 31.0 g/dL (33.0-37.0); Mean Corpuscular Volume 92.7 fL (80.0-94.0); Nucleated Red Blood Cells % 0 % (-); Platelet Count 356 10^3/uL (130-400); Red Cell Dist. Width 13.6 % (11.5-14.5)
[2025-01-19 10:32] LABS: ALT (SGPT) 16 U/L (0-50); AST (SGOT) 16 U/L (17-59); Albumin 3.2 g/dl (3.5-5.0); Alkaline Phosphatase 66 U/L (38-126); Blood Urea Nitrogen 17 mg/dl (9-20); Calcium 8.8 mg/dl (8.4-10.2); Carbon Dioxide 25 mmol/L (22-30); Chloride 105 mmol/L (98-107); Estimated Creatinine Clearance 63 ml/min; Glucose 85 mg/dl (70-99); Potassium 4.2 mmol/L (3.5-5.1); Sodium 137 mmol/L (135-145); Total Protein 6.7 g/dl (6.3-8.2); eGFR > 60.00
--- NOTE | 2025-01-19 11:32 | EDRN ---
this RN called [facility] at [phone] and gave verbal report to the [facility] receiving nurse May
[2025-01-19] MEDS: OMNICEF 300 MG PO (11:48)
[2025-01-19 11:57] VITALS: BP 131/85
== END 2025-01-19 11:59 | disposition home or self-care (01) ==
LOC: EMR 07:35
PROVIDERS: EMERGENCY PHYSICIAN Emergency Medicine
DX: R31.9 Hematuria, unspecified (principal); I10 Essential (primary) hypertension; E78.00 Pure hypercholesterolemia, unspecified
CPT/HCPCS: 99283; 51702; 96372; 80053; 85025

== ENCOUNTER 2025-01-29 06:19 | Day surgery (SDC) | payer MEDICARE, MEDICAID, SELFPAY ==
--- NOTE | 2025-01-26 14:21 | PTCARENOTE ---
Dr South made aware of Hgb 8.3, no further action requested.
[2025-01-29] VITALS (8 sets, daily range): BP systolic 103–124; BP diastolic 46–70; BMI 25.1
[2025-01-29] MEDS: NORMOSOL-R/PLASMALYTE-A 1000 IV (08:10)
== END 2025-01-29 11:40 | disposition other institution (70) ==
LOC: SDS 06:19
PROVIDERS: ATTENDING PHYSICIAN Surgery
DX: C67.2 Malignant neoplasm of lateral wall of bladder (principal); N40.1 Benign prostatic hyperplasia with lower urinary tract symptoms; R33.8 Other retention of urine; R31.9 Hematuria, unspecified
CPT/HCPCS: 52240; 88307

== ENCOUNTER → 2025-02-20 11:03 | Outpatient (REF) | payer MEDICARE, MEDICAID, SELFPAY | LOC: RAD 11:03 | PROVIDERS: ATTENDING PHYSICIAN Surgery; FAMILY PHYSICIAN Internal Medicine | DX: C67.9 Malignant neoplasm of bladder, unspecified (principal) | CPT/HCPCS: 74177; Q9967 ==